=== PATIENT | female | born 1935 | race Caucasian/White ===

== ENCOUNTER → 2017-04-20 09:53 | Outpatient (CLI) | payer MEDICARE, OTHER, SELFPAY ==
[2017-04-20 13:19] LABS: Absolute Lymphocyte Count 2.35 X10^3/ul (0.83-4.51); Absolute Neutrophil Count 7.4 X10^3/uL (2.0-7.7); Basophil# 0.03 X10^3/uL; Basophil% 0.3 % (0-1); Eosinophil# 0.08 X10^3/uL; Eosinophils% 0.7 % (0-5); Hematocrit 41.5 % (37-47); Hemoglobin 13.2 g/dl (12.0-15.0); Lymphocyte # 2.35 X10^3/ul (4.0); Lymphocyte % 21.7 % (19-41); Mean Corp Hgb Conc 31.8 g/gl (32-36); Mean Corpuscular Hgb 28.1 pg (27.0-32.0); Mean Corpuscular Volume 88.5 fL (81-99); Mean Platelet Vol. 9.1 fl (6.2-12.0); Monocyte# 0.98 X10^3/uL; Neutrophil # 7.39 X10^3/uL (2.7-7.7); Neutrophil % 68.1 % (47-70); POSITIVE COUNT NO; POSITIVE DIFFERENTIAL NO; POSITIVE MORPHOLOGY NO; Platelet Count 285 K/mm3 (150-450); RBC Distribution Width SD 44.8 fl (35.1-43.9); Red Blood Count 4.69 M/mm3 (4.2-5.4); White Blood Count 10.9 K/mm3 (4.4-11.0)
[2017-04-20 13:49] LABS: ALB/GLOB Ratio 0.7 RATIO (0.9-2.4); AST(SGOT) 17 U/L (15-37); Alanine Aminotransfer ALT/SGPT 19 U/L (13-56); Albumin, Serum 3.3 g/dL (3.2-5.0); Alkaline Phosphatase 57 U/L (45-117); Anion Gap 10 (5-15); BUN 18 mg/dL (7-18); BUN/Creat Ratio 14.1 RATIO (10-20); Calcium,Total 9.8 mg/dL (8.5-10.1); Chloride 95 mmol/L (98-107); Creatinine, Serum 1.28 mg/dL (0.55-1.02); EST Glomerular Filtration Rate 42 mL/min (>60); Est Glom Filt Rate - Afr Amer 51 mL/min (>60); Globulin 4.7 g/dL (2.2-4.2); Glucose 98 mg/dL (74-106); Potassium 4.4 mmol/L (3.5-5.1); Sodium Level 132 mmol/L (136-145); Thyroid Stim Hormone (TSH) 7.06 uIU/mL (0.358-3.74)
[2017-04-21 11:25] LABS: Vitamin D,25 Hydroxy 45.2 ng/mL (19.95-100.01)
== END ==
PROVIDERS: Family Provider Family Medicine Geriatric Medicine; PCP Family Medicine Geriatric Medicine; Visit Provider Family Medicine Geriatric Medicine
DX: I10 Essential (primary) hypertension (principal); E55.9 Vitamin D deficiency, unspecified
CPT/HCPCS: 36415; 80053; 82306; 84443; 85025

== ENCOUNTER 2017-04-22 10:44 | Emergency (ER) | payer MEDICARE, OTHER, SELFPAY ==
[2017-04-22 10:46] VITALS: BP 130/74; PULSE 88; RESP 20; TEMP 36.2; O2SAT 98; BMI 27.7
[2017-04-22 11:11] LABS: Absolute Lymphocyte Count 2.25 X10^3/ul (0.83-4.51); Absolute Neutrophil Count 8.2 X10^3/uL (2.0-7.7); Basophil# 0.06 X10^3/uL; Basophil% 0.5 % (0-1); Eosinophil# 0.07 X10^3/uL; Eosinophils% 0.6 % (0-5); Hematocrit 35.5 % (37-47); Hemoglobin 11.9 g/dl (12.0-15.0); Lymphocyte # 2.25 X10^3/ul (4.0); Lymphocyte % 18.9 % (19-41); Mean Corp Hgb Conc 33.5 g/gl (32-36); Mean Corpuscular Hgb 29.1 pg (27.0-32.0); Mean Corpuscular Volume 86.8 fL (81-99); Mean Platelet Vol. 8.7 fl (6.2-12.0); Monocyte# 1.34 X10^3/uL; Monocyte% 11.3 % (0-10); Neutrophil # 8.16 X10^3/uL (2.7-7.7); Neutrophil % 68.5 % (47-70); POSITIVE COUNT NO; POSITIVE DIFFERENTIAL NO; POSITIVE MORPHOLOGY NO; Platelet Count 259 K/mm3 (150-450); RBC Distribution Width CV 13.8 % (11.6-14.6); RBC Distribution Width SD 42.9 fl (35.1-43.9); Red Blood Count 4.09 M/mm3 (4.2-5.4); White Blood Count 11.9 K/mm3 (4.4-11.0)
--- NOTE | 2017-04-22 11:23 | ED.DCSUM_ITS ---
- ER Visit Summary Date of Service: 04/22/17 Chief Complaint: [Swelling left hip] History of Present Illness: The patient is a 82 F [presents to the emergency department with] redness and warmth to hematoma on left hip. Patient apparently had a fall 4 nights ago while returning from the bathroom in the middle of the night. Patient injured her left hip and was seen by her primary care physician 2 days ago. Daughter was advised to come to the emergency department if there was redness or warmth noted to the area of the hematoma as sometimes these can get infected. Patient is on Xarelto. Patient has not had a fever. Patient denies much discomfort and has been ambulating without this comfort. Patient denies hitting her head during the fall or headache. Physical Examination: [HEENT-PERRLA, EOMI. Cranial nerves II through XII grossly intact. TMs clear. Mucous membranes moist. No adenopathy. Cardiovascular-regular rate and rhythm without murmur or ectopy Lungs-clear to auscultation, chest wall stable without crepitus or subcu emphysema Abdomen-normoactive bowel sounds, soft, nontender, no rebound or rigidity, no peritoneal signs. Extremities-intact ?4, normal range of motion, normal pulses. Left hip-patient has a large hematoma over the left lateral hip with induration and diffuse ecchymosis noted. Central portion of the hematoma has just a faint erythema and it is slightly warm to touch. There is no lymphangitic streaking noted or evidence of cellulitis on the periphery of the ecchymosis. Patient nervously intact distally. Test Results: [BC with differential obtained showed a slightly elevated white blood cell count of 11.9, hemoglobin 11.9, hematocrit 35, platelets 259.] Emergency Department Course and Treatment: [Patient was given 1 dose of Keflex in the emergency department] Treatment Plan: [She will be treated with Keflex and advised to follow-up with her primary care physician in 2-3 days for wound check. Patient advised to return if fever, increased redness or swelling, or condition should worsen in any way. His point patient is nontoxic-appearing.] Disposition: [Discharged home in stable condition] Impression: [Left hip hematoma with concern for early cellulitis.] This note was generated with [employer]gyl[employer]ation software. It may contain incorrect words, spelling, and punctuation that were not noted in review of the chart prior to signing ED Disposition - Plan for ED Patient: Chief Complaint: Fall Referrals: Will Nagy Chi, MD [Primary Care Provider] -
--- NOTE | 2017-04-22 11:23 | ED.DEP ---
ED Disposition - Plan for ED Patient: Chief Complaint: Fall Instructions: ED Prevention Fall, ED Hematoma, ED Infec Skin Cellulitis Prescriptions: Cephalexin [Keflex] 500 mg PO Q6 #40 cap Referrals: Will Nagy Chi, MD [Primary Care Provider] -
[2017-04-22] MEDS: Cephalexin 250 MG Capsule 500 MG PO (11:36)
[2017-04-22 11:40] VITALS: BP 135/84; PULSE 71; RESP 16; O2SAT 98
== END 2017-04-22 11:40 | disposition home or self-care (01) ==
PROVIDERS: Emergency Provider Emergency Medicine; Family Provider Family Medicine Geriatric Medicine; PCP Family Medicine Geriatric Medicine
DX: L03.116 Cellulitis of left lower limb (principal); S70.02XA Contusion of left hip, initial encounter; W19.XXXA Unspecified fall, initial encounter; Y93.9 Activity, unspecified; Y92.9 Unspecified place or not applicable; Y99.9 Unspecified external cause status; I48.91 Unspecified atrial fibrillation; E03.9 Hypothyroidism, unspecified; F03.90 Unspecified dementia, unspecified severity, without behavioral disturbance, psychotic disturbance, mood disturbance, and anxiety; F32.9 Major depressive disorder, single episode, unspecified; Z79.01 Long term (current) use of anticoagulants; Z79.899 Other long term (current) drug therapy
CPT/HCPCS: 36415; 85025; 99283

== ENCOUNTER → 2017-05-31 14:35 | Outpatient (CLI) | payer MEDICARE, OTHER, SELFPAY | PROVIDERS: Family Provider Family Medicine Geriatric Medicine; PCP Family Medicine Geriatric Medicine; Visit Provider Family Medicine Geriatric Medicine | DX: E03.9 Hypothyroidism, unspecified (principal) ==

== ENCOUNTER → 2017-07-21 08:59 | Outpatient (CLI) | payer MEDICARE, OTHER, SELFPAY ==
[2017-07-21 11:27] LABS: Basophil# 0.02 X10^3/uL; Basophil% 0.2 % (0-1); Eosinophil# 0.08 X10^3/uL; Hematocrit 45.2 % (37-47); Hemoglobin 14.5 g/dl (12.0-15.0); Lymphocyte % 29.3 % (19-41); Mean Corp Hgb Conc 32.1 g/gl (32-36); Mean Corpuscular Volume 87.4 fL (81-99); Monocyte# 0.68 X10^3/uL; Monocyte% 8.3 % (0-10); Neutrophil # 5.01 X10^3/uL (2.7-7.7); Neutrophil % 61.1 % (47-70); POSITIVE COUNT NO; POSITIVE DIFFERENTIAL NO; POSITIVE MORPHOLOGY NO; Platelet Count 250 K/mm3 (150-450); RBC Distribution Width CV 13.7 % (11.6-14.6); Red Blood Count 5.17 M/mm3 (4.2-5.4); White Blood Count 8.2 K/mm3 (4.4-11.0)
[2017-07-21 12:10] LABS: ALB/GLOB Ratio 0.8 RATIO (0.9-2.4); AST(SGOT) 16 U/L (15-37); Alanine Aminotransfer ALT/SGPT 12 U/L (13-56); Albumin, Serum 3.5 g/dL (3.2-5.0); Alkaline Phosphatase 54 U/L (45-117); Anion Gap 7 (5-15); BUN 14 mg/dL (7-18); BUN/Creat Ratio 12.5 RATIO (10-20); Calcium,Total 9.6 mg/dL (8.5-10.1); Chloride 97 mmol/L (98-107); Creatinine, Serum 1.12 mg/dL (0.55-1.02); EST Glomerular Filtration Rate 49 mL/min (>60); Est Glom Filt Rate - Afr Amer 60 mL/min (>60); Globulin 4.6 g/dL (2.2-4.2); Glucose 110 mg/dL (74-106); Potassium 4.4 mmol/L (3.5-5.1); Protein, Total 8.1 g/dL (6.4-8.2); Sodium Level 136 mmol/L (136-145); Thyroid Stim Hormone (TSH) 3.45 uIU/mL (0.358-3.74)
== END ==
PROVIDERS: Family Provider Family Medicine Geriatric Medicine; PCP Family Medicine Geriatric Medicine; Visit Provider Family Medicine Geriatric Medicine
DX: I10 Essential (primary) hypertension (principal); E55.9 Vitamin D deficiency, unspecified
CPT/HCPCS: 36415; 80053; 82306; 84443; 85025

== ENCOUNTER → 2017-10-25 11:00 | Outpatient (CLI) | payer MEDICARE, OTHER, SELFPAY ==
[2017-10-25 12:31] LABS: Absolute Lymphocyte Count 2.18 X10^3/ul (0.83-4.51); Absolute Neutrophil Count 5.5 X10^3/uL (2.0-7.7); Basophil# 0.04 X10^3/uL; Basophil% 0.5 % (0-1); Eosinophil# 0.11 X10^3/uL; Eosinophils% 1.3 % (0-5); Hematocrit 44.6 % (37-47); Hemoglobin 14.6 g/dl (12.0-15.0); Lymphocyte # 2.18 X10^3/ul (4.0); Lymphocyte % 25.8 % (19-41); Mean Corp Hgb Conc 32.7 g/gl (32-36); Mean Corpuscular Hgb 29.1 pg (27.0-32.0); Mean Corpuscular Volume 88.8 fL (81-99); Mean Platelet Vol. 9.3 fl (6.2-12.0); Monocyte# 0.65 X10^3/uL; Monocyte% 7.7 % (0-10); Neutrophil # 5.45 X10^3/uL (2.7-7.7); Neutrophil % 64.5 % (47-70); Platelet Count 278 K/mm3 (150-450); Red Blood Count 5.02 M/mm3 (4.2-5.4); White Blood Count 8.5 K/mm3 (4.4-11.0)
[2017-10-25 12:40] LABS: POSITIVE COUNT NO; POSITIVE DIFFERENTIAL NO; POSITIVE MORPHOLOGY NO
[2017-10-25 12:48] LABS: Vitamin D,25 Hydroxy 48.6 ng/mL (29.95-100.01)
[2017-10-25 12:49] LABS: ALB/GLOB Ratio 0.8 RATIO (0.9-2.4); AST(SGOT) 19 U/L (15-37); Alanine Aminotransfer ALT/SGPT 22 U/L (13-56); Albumin, Serum 3.5 g/dL (3.2-5.0); Alkaline Phosphatase 52 U/L (45-117); Anion Gap 9 (5-15); BUN 18 mg/dL (7-18); BUN/Creat Ratio 14.5 RATIO (10-20); Calcium,Total 9.2 mg/dL (8.5-10.1); Chloride 99 mmol/L (98-107); Creatinine, Serum 1.24 mg/dL (0.55-1.02); EST Glomerular Filtration Rate 44 mL/min (>60); Est Glom Filt Rate - Afr Amer 53 mL/min (>60); Globulin 4.6 g/dL (2.2-4.2); Glucose 127 mg/dL (74-106); Potassium 4.8 mmol/L (3.5-5.1); Protein, Total 8.1 g/dL (6.4-8.2); Sodium Level 138 mmol/L (136-145); Thyroid Stim Hormone (TSH) 3.79 uIU/mL (0.358-3.74)
== END ==
PROVIDERS: Family Provider Family Medicine Geriatric Medicine; PCP Family Medicine Geriatric Medicine; Visit Provider Family Medicine Geriatric Medicine
DX: I10 Essential (primary) hypertension (principal); E55.9 Vitamin D deficiency, unspecified
CPT/HCPCS: 36415; 80053; 82306; 84443; 85025

== ENCOUNTER 2017-11-12 22:12 | Inpatient (IN) | payer MEDICARE, OTHER, SELFPAY ==
[2017-11-12 22:12] VITALS: BP 133/91; PULSE 72; RESP 15; TEMP 36.9; O2SAT 92; BMI 27.8
[2017-11-12 23:05] VITALS: BP 150/104; PULSE 150; RESP 24; O2SAT 88
--- NOTE | 2017-11-12 23:17 | ED.VISSUMM ---
- ER Visit Summary Date of Service: 11/12/17 Chief Complaint: Shortness of breath History of Present Illness: The patient is a 82 F increasing shortness of breath over the past week. Patient is a poor historian, states has Alzheimer's dementia. States worse when she lays down, sleep sitting up. Mild leg swelling today. Unclear if history of congestive heart failure. History of atrial fibrillation on anticoagulants either Xarelto or Eliquis at this time. Daughter is getting the medications from home per nursing. Metoprolol from records. Patient states mild cough. No fever, chills, sweats. Nausea with no vomiting or diarrhea. States mild chest pressure due to dyspnea. Physical Examination: General: Alert and oriented ?3, no acute distress HEENT: Normocephalic, atraumatic. Moist mucosa membranes Neck: supple, nontender. Cardiovascular: Irregular tachycardic rate and rhythm, no murmurs Respiratory: Diminished breath sounds no distress Abdomen: Soft, nontender, nondistended Extremities: Nontender, minimal lower extremity edema, pulses intact ?4 Neuro: no focal neurological deficits. Test Results: EKG A. fib with RVR rate of 124. No ST or T-wave changes. Troponin negative. BNP 379, hemoglobin 14.7. White count 12.4. Potassium 4.9. Creatinine 0.96. Chest x-ray left lower lobe infiltrate. Emergency Department Course and Treatment: Patient was hypoxic on arrival, placed on oxygen, stable, no respiratory distress. If he is already on EKG. Given Lopressor ?3 with no changes in heart rate blood pressure stable. Started on Cardizem drip. Workup initiated chest x-ray does show pneumonia left lower lobe. White count 12.4. Lactic acid is 1. Blood culture sent. Start Rocephin and Zithromax for community acquired pneumonia. O2 stable on oxygen. Troponin negative. BNP 379. Her history to suggest CHF due to her complaints of orthopnea and swelling. No CHF history. Confirmed by daughter she is on Eliquis. A Cardizem drip she is stable vitals heart rate down to the 120s. Discuss with hospitalist, Dr. San for admission to PCU. Treatment Plan: [] Disposition: Admission Impression: 1. [facility] pneumonia 2. Hypoxemia 3. A. fib RVR. 4. CHF This note was generated with [employer] software. It may contain incorrect words, spelling, and punctuation that were not noted in review of the chart prior to signing ED Disposition - Plan for ED Patient: Disposition: Acute Care Hospital [facility] Chief Complaint: Shortness of Breath Diagnosis: Community acquired pneumonia, Hypoxemia, Atrial fibrillation with RVR, CHF (congestive heart failure) Referrals: Will Nagy Chi, MD [Primary Care Provider] -
[2017-11-12 23:20] VITALS: BP 128/108; PULSE 129; RESP 32; O2SAT 96
[2017-11-12] MEDS: Ondansetron 4 MG/2 ML Vial IV (23:23)
[2017-11-12] MEDS: Metoprolol Tartrate 5 MG/5 ML Vial IV ×3 (23:23→23:53)
[2017-11-12 23:39] LABS: Absolute Lymphocyte Count 1.72 X10^3/ul (0.83-4.51); Absolute Neutrophil Count 9.3 X10^3/uL (2.0-7.7); Basophil# 0.02 X10^3/uL; Basophil% 0.2 % (0-1); Eosinophil# 0.26 X10^3/uL; Eosinophils% 2.1 % (0-5); Hemoglobin 14.7 g/dl (12.0-15.0); Lymphocyte # 1.72 X10^3/ul (4.0); Lymphocyte % 13.9 % (19-41); Mean Corpuscular Hgb 28.7 pg (27.0-32.0); Mean Corpuscular Volume 89.7 fL (81-99); Mean Platelet Vol. 8.7 fl (6.2-12.0); Monocyte# 1.05 X10^3/uL; Monocyte% 8.5 % (0-10); Neutrophil # 9.32 X10^3/uL (2.7-7.7); Platelet Count 534 K/mm3 (150-450); RBC Distribution Width CV 14.4 % (11.6-14.6); RBC Distribution Width SD 46.7 fl (35.1-43.9); Red Blood Count 5.13 M/mm3 (4.2-5.4); White Blood Count 12.4 K/mm3 (4.4-11.0)
[2017-11-12 23:46] LABS: International Normalized Ratio 1.4; Prothrombin Time (Protime)PT. 17.2 SECONDS (11.7-14.9)
[2017-11-12 23:47] LABS: POSITIVE COUNT NO; POSITIVE DIFFERENTIAL NO; POSITIVE MORPHOLOGY NO; Partial Thromboplast Time 43.5 Seconds (24.1-36.2)
[2017-11-12 23:51] LABS: BUN 13 mg/dL (7-18); Creatinine, Serum 0.96 mg/dL (0.55-1.02); Glucose 116 mg/dL (74-106)
[2017-11-12 23:52] LABS: ALB/GLOB Ratio 0.6 RATIO (0.9-2.4); AST(SGOT) 32 U/L (15-37); Alanine Aminotransfer ALT/SGPT 35 U/L (13-56); Albumin, Serum 3.2 g/dL (3.2-5.0); Alkaline Phosphatase 64 U/L (45-117); Anion Gap 7 (5-15); BUN/Creat Ratio 13.5 RATIO (10-20); Calcium,Total 9.4 mg/dL (8.5-10.1); Chloride 95 mmol/L (98-107); EST Glomerular Filtration Rate 59 mL/min (>60); Est Glom Filt Rate - Afr Amer 71 mL/min (>60); Estimated Creatinine Clearance 39.01 ml/min; Potassium 4.9 mmol/L (3.5-5.1); Protein, Total 8.2 g/dL (6.4-8.2); Sodium Level 134 mmol/L (136-145)
[2017-11-13] VITALS (52 sets, daily range): BP systolic 49–178; BP diastolic 34–155; PULSE 62–155; RESP 13–40; TEMP 35.8–37.4; O2SAT 89–100; BMI 27.2
[2017-11-13 00:07] LABS: BNP,B-Type NATRIURETIC PEPTIDE 379.6 pg/mL (0-100)
[2017-11-13] MEDS: Ceftriaxone 1 GM/50 ML BAG IV (00:20)
--- NOTE | 2017-11-13 01:23 | PCM.HP.STD ---
Problem List (1) Paroxysmal atrial fibrillation with RVR Status: Acute (2) Pneumonia Status: Acute Qualifiers: Pneumonia type: due to unspecified organism Laterality: left Lung location: lower lobe of lung Qualified Code(s): J18.1 - Lobar pneumonia, unspecified organism (3) PAF (paroxysmal atrial fibrillation) Status: Chronic (4) ETOH abuse Status: Chronic (5) Chronic back pain Status: Chronic Qualifiers: Back pain location: back pain in unspecified location Back pain laterality: unspecified Qualified Code(s): M54.9 - Dorsalgia, unspecified; G89.29 - Other chronic pain (6) Dementia without behavioral disturbance Status: Chronic Qualifiers: Dementia type: unspecified type Qualified Code(s): F03.90 - Unspecified dementia without behavioral disturbance (7) Insomnia Status: Chronic Qualifiers: Insomnia type: unspecified Qualified Code(s): G47.00 - Insomnia, unspecified (8) Hypothyroidism Status: Chronic Qualifiers: Hypothyroidism type: unspecified Qualified Code(s): E03.9 - Hypothyroidism, unspecified (9) Hypertension Status: Chronic Qualifiers: Hypertension type: essential hypertension Qualified Code(s): I10 - Essential (primary) hypertension History of Present Illness Date of Admission: 11/13/17 Chief Complaint: Dyspnea, weakness. The patient is a 82 y/o F w/ PMHx: PAF on Eliquis, HTN, Hypothyroidism, Dementia Unclear Type without Behavioral Disturbance history, EtOH Abuse who presents to the [facility] ED on 1 week history of dyspnea, worse w/ activity with orthopnea requiring her to sleep upright in a chair instead of her bed and mildly productive cough. In the ED workup included T 98.4, heart rate 150--> heart rate 126, BP 127/104, respiratory rate 34, 95% on 2 L nasal cannula, CBC with WBC 12.4, hemoglobin 14.7, platelet 534 with left shift, coags with PT 17.2, INR 1.4, PTT 43.5, CMP with sodium 134, chloride 95, glucose 116, lactic acid 1.0, BNP 379.6, x-ray with opacity consistent with pneumonia in the left lung base, partial collapse and or pleural effusion possibly contributing, stable moderate elevation right diaphragm. In the ED patient administered Zofran, metoprolol IV, Rocephin, azithromycin, initiated additionally on Cardizem drip. Past Medical History Past Medical History (Chronic Problems): Chronic Problems PAF (paroxysmal atrial fibrillation) (Chronic) ETOH abuse (Chronic) Chronic back pain (Chronic) Dementia without behavioral disturbance (Chronic) Obesity (BMI 30.0-34.9) (Chronic) Insomnia (Chronic) Hypothyroidism (Chronic) Hypertension (Chronic) Allergies lisinopril Allergy (Verified 11/12/17 22:18) Unknown losartan [From Cozaar] Allergy (Verified 11/12/17 22:18) Unknown NSAIDS (Non-Steroidal Anti-Inflamma Allergy (Verified 11/12/17 22:18) Unknown Home Medications: Ambulatory Orders Medication Instructions Recorded Ergocalciferol [Vitamin D] 50,000 unit PO Q30D 01/16/17 Latanoprost 0.005% [Xalatan 1 drop EACH EYE QHS 01/16/17 Opthalmic] Timolol 0.5% [Timoptic] 1 drop EACH EYE BID 01/16/17 Trazodone HCl 100 mg PO QHS 01/16/17 Apixaban [Eliquis] 5 mg PO BID 11/12/17 Calcium Carbonate/Vitamin D3 1 each PO BID 11/12/17 [Calcium 600 + Vit D Caplet] Donepezil HCl [Aricept] 10 mg PO QHS 11/12/17 Levothyroxine Sodium 112 mcg PO DAILY 11/12/17 Metoprolol Tartrate [Lopressor 50 mg PO BID 11/12/17 (beta za)] Multivitamin [Multiple Vitamins] 1 each PO DAILY 11/12/17 Vit C/Vit E AC/Lut/Copper/Zinc 1 each PO BID 11/12/17 [Preservision Lutein Softgel] Surgical History: - - Total abdominal hysterectomy, tonsillectomy. Psychiatric History: Anxiety, Depression INTERNAL AUDITOR History: No pertinent INTERNAL AUDITOR history Lives: With Family Smoking Status: Never smoker Tobacco Use: Non-smoker Alcohol: Heavy - 2-3 hard liquor, vodka with water tumblers per night. Drugs: None - *Family History Maternal History Items: No pertinent history Paternal History Items: Hypertension Review of Systems Constitutional: Reports: Malaise, Weakness, Fatigue. Denies: Chills, Fever, Weight Change HEENT: Denies: Head Aches, Sinus Congestion, Sinus Drainage Cardiovascular: Reports: Orthopnea. Denies: Chest Pain, Edema, Palpitations Respiratory: Reports: Cough, Shortness of Breath, Shortness of breath at rest, Shortness of breath upon exertion. Denies: Sputum production, Wheezing Gastrointestinal: Denies: Abdominal Pain, Nausea, Vomiting Genitourinary: Denies: Dysuria Musculoskeletal: Reports: Back Pain. Denies: Joint Pain, Joint Tenderness Skin: Denies: Rash, Wounds Neurological: Reports: Confusion. Denies: Focal weakness, Numbness, Tingling Psychiatric: Reports: Anxiety, Depression. Denies: Homicidal Ideations, Suicidal Ideations Hematologic/ Lymphatic: Denies: Easy Bruising, Easy Bleeding VTE Information - Inpt Only VTE Present on Admission: No VTE Mechan Device Prophylaxis: SCD's VTE Pharm Prophylaxis ordered?: No Reason prophylaxis not ordered:: Treatment Not Indicated - On eliquis. Patient Problems: Active and Suspected Problems Paroxysmal atrial fibrillation with RVR (Acute) Pneumonia (Acute) Subjective: Seated upright in the ED bed, fatigued appearing, ill appearing, notes currently severely nauseated. Objective: Physical Examination: General: awake, alert, oriented to self, place, recent events, does have underlying dementia, remains cooperative, seated upright in the ED bed, fatigued, ill appearing. Skin: normal color, turgor, no icterus, cyanosis. HEENT: AT/NC, EOMI, PERRLA, dry MM, no carotid bruits or JVD noted. Lungs: Diminished BS BL, > BL bases, poor effort, hunched over, nauseated currently, no wheezing or rales noted. Heart: Irregular irregular; no gallop, rub audible. Abdomen: soft, NTTP, ND, normal BS, no HSM; however, difficult to assess given current nausea and preference to avoid laying down. Extremities: no cyanosis, clubbing, or edema. Neurological: patient awake, alert, oriented as noted; cognitive function appears decreased from baseline, baseline moderately impaired w/ dementia; pupils equally reactive to light and accomodation; cranial nerves II-XII grossly normal, moving all 4 extremities, no focal deficits, strength severely globally decreased secondary to acute presentation. Psychiatric: affect appears fatigued, ill appearing, no acute evidence of depressive or anxiety feelings. - Physical Exam Vital Signs Temp Pulse Resp BP Pulse Ox 98.4 F 126 H 34 H 127/104 H 95 11/12/17 22:12 11/13/17 01:19 11/13/17 01:19 11/13/17 01:19 11/13/17 01:19 Oxygen Flow Rate (L/min) 2 Oxygen Delivery Method Nasal Cannula Weight: 162 lb Body Mass Index (BMI) 27.8 Laboratory Tests Past 24 Hrs 11/12/17 11/12/17 11/12/17 23:00 23:00 23:00 WBC 12.4 H RBC 5.13 Hgb 14.7 Hct 46.0 MCV 89.7 MCH 28.7 MCHC 32.0 RDW 14.4 RDW Differential 46.7 H Plt Count 534 H MPV 8.7 Immature Gran % (Auto) 0.300 Neut % (Auto) 75.0 H Lymph % (Auto) 13.9 L [place] % (Auto) 8.5 Eos % (Auto) 2.1 Baso % (Auto) 0.2 Absolute Neuts (auto) 9.3 H Absolute Lymphs (auto) 1.72 Total Counted Not Reportable PT 17.2 H INR 1.4 APTT 43.5 H Sodium 134 L Potassium 4.9 Chloride 95 L Carbon Dioxide 32.0 Anion Gap 7 BUN 13 Creatinine 0.96 Estim Creat Clear Calc 39.01 Est GFR (MDRD) Af Amer 71 Est GFR (MDRD) Non-Af 59 L BUN/Creatinine Ratio 13.5 Glucose 116 H Lactic Acid Calcium 9.4 Total Bilirubin 0.40 AST 32 ALT 35 Alkaline Phosphatase 64 Troponin I < 0.015 B-Natriuretic Peptide Total Protein 8.2 Albumin 3.2 Globulin 5.0 H Albumin/Globulin Ratio 0.6 L 11/12/17 11/13/17 23:00 00:15 WBC RBC Hgb Hct MCV MCH MCHC RDW RDW Differential Plt Count MPV Immature Gran % (Auto) Neut % (Auto) Lymph % (Auto) [place] % (Auto) Eos % (Auto) Baso % (Auto) Absolute Neuts (auto) Absolute Lymphs (auto) Total Counted PT INR APTT Sodium Potassium Chloride Carbon Dioxide Anion Gap BUN Creatinine Estim Creat Clear Calc Est GFR (MDRD) Af Amer Est GFR (MDRD) Non-Af BUN/Creatinine Ratio Glucose Lactic Acid 1.0 Calcium Total Bilirubin AST ALT Alkaline Phosphatase Troponin I B-Natriuretic Peptide 379.6 H Total Protein Albumin Globulin Albumin/Globulin Ratio Assessment/Plan All Active Problems Paroxysmal atrial fibrillation with RVR (Acute) Pneumonia (Acute) The patient is a 82 y/o F w/ PMHx: PAF on Eliquis, HTN, Hypothyroidism, Dementia Unclear Type without Behavioral Disturbance history, EtOH Abuse who presents to the [facility] ED on 1 week history of dyspnea, worse w/ activity with orthopnea requiring her to sleep upright in a chair instead of her bed and mildly productive cough. (1) Paroxsymal atrial fibrillation w/ RVR: EKG in ED w/ atrial fibrillation w/ RVR. Patient administered lopressor x 3 in the ED without effect thus transitioned to cardizem drip. Will admit to PCU, maintain on telemetry, obtain cardiac enzyme serial set, obtain magnesium level, maintain on home eliquis, continue cardizem drip and if not effective consider Cardiology consultation, repeat EKG in AM. (2) ? Community Acquired Pneumonia: CXR in the ED w/ opacity consistent with pneumonia in the left lung base with possible associated partial collapse versus pleural effusion contributing to the density, stable moderate elevation of the right diaphragm. Will maintain on oxygen with wean as tolerated to room air/home oxygen supplementation, continue ATC duonebs, PRN albuterol, maintained on IV Rocephin and Azithromycin, HOB, IS parameters w/ pending sputum cultures and urine antigens. Bld cx x 2 obtained in the ED. (3) ? Underlying CHF, Unclear Type, Lower Suspicion, Although suspect Acute presentation secondary to #1: 01/2017 ECHO w/ no LV systolic function, EF 65%, mildly enlarged LA, mildly enlarged RA, mild MV insufficiency, mild to moderate TV insufficiency, mild focal AV calcification, trivial pulmonic valve insufficiency, RVSP 27 mmHg. Suspect presentation secondary to her atrial fibrillation with RVR. BNP only mildly elevated. CXR without marked congestion. Will maintain on telemetry, obtain serial cardiac enzymes, obtain mag level, obtain TSH level, repeat EKG in AM, repeat ECHO. Maintain on eliquis, metoprolol, ACEI/ARB allergy, will defer aggressive lasix administration and continue w/ treatment #1 and #2 and continue evaluation as again lower suspicion for CHF but felt secondary to her likely ongoing atrial fibrillation w/ RVR. (4) Hypertension: Continue home BB regimen w/ parameters, as noted on IV Cardizem w/ oral regimen adjustments over the next 24 hours as needed, adjust as needed. (5) Hypothyroidism: Continue home synthroid regimen, TSH pending. (6) Insomnia: Continue home trazodone q HS. (7) Dementia without behavioral disturbances w/ Anxiety/Depression: Notable anxiety in the ED. Daughter lives with her, continue home aricept regimen. (8) EtOH Abuse: Patient with routine consumption of 3 vodka drinks per day. Will maintain on CIWA protocol, MVI, thiamine and folic acid. Mag, phos pending. (9) DVT prophylaxis: SCDs, Eliquis. (10) CODE status: Patient evaluated prior and had recommended HCPOA/living will, patient notes not yet completed. Discussed CODE status at length including difference between FULL code, DNR-CCA and DNR-CC status. Following discussions about the differences in these status, confirmed continuation of Full Code status. Advanced Care Planning Face to Face Time: 17 minutes. Code Visit Inpatient E&M: 99615 Init Hosp L3 Procedures: 23390 Advncd Care Plan 30 Min
--- NOTE | 2017-11-13 01:38 | HP.PCM_ITS ---
Problem List (1) Paroxysmal atrial fibrillation with RVR Status: Acute (2) Pneumonia Status: Acute Qualifiers: Pneumonia type: due to unspecified organism Laterality: left Lung location: lower lobe of lung Qualified Code(s): J18.1 - Lobar pneumonia, unspecified organism (3) PAF (paroxysmal atrial fibrillation) Status: Chronic (4) ETOH abuse Status: Chronic (5) Chronic back pain Status: Chronic Qualifiers: Back pain location: back pain in unspecified location Back pain laterality : unspecified Qualified Code(s): M54.9 - Dorsalgia, unspecified; G89.29 - Other chronic pain (6) Dementia without behavioral disturbance Status: Chronic Qualifiers: Dementia type: unspecified type Qualified Code(s): F03.90 - Unspecified dementia without behavioral disturbance (7) Insomnia Status: Chronic Qualifiers: Insomnia type: unspecified Qualified Code(s): G47.00 - Insomnia, unspecified (8) Hypothyroidism Status: Chronic Qualifiers: Hypothyroidism type: unspecified Qualified Code(s): E03.9 - Hypothyroidism , unspecified (9) Hypertension Status: Chronic Qualifiers: Hypertension type: essential hypertension Qualified Code(s): I10 - Essential (primary) hypertension History of Present Illness Date of Admission: 11/13/17 Chief Complaint: Dyspnea, weakness. The patient is a 82 y/o F w/ PMHx: PAF on Eliquis, HTN, Hypothyroidism, Dementia Unclear Type without Behavioral Disturbance history, EtOH Abuse who presents to the [facility] ED on 1 week history of dyspnea, worse w/ activity with orthopnea requiring her to sleep upright in a chair instead of her bed and mildly productive cough. In the ED workup included T 98.4, heart rate 150--> heart rate 126, BP 127/104, respiratory rate 34, 95% on 2 L nasal cannula, CBC with WBC 12.4, hemoglobin 14.7, platelet 534 with left shift, coags with PT 17.2 , INR 1.4, PTT 43.5, CMP with sodium 134, chloride 95, glucose 116, lactic acid 1.0, BNP 379.6, x-ray with opacity consistent with pneumonia in the left lung base, partial collapse and or pleural effusion possibly contributing, stable moderate elevation right diaphragm. In the ED patient administered Zofran, metoprolol IV, Rocephin, azithromycin, initiated additionally on Cardizem drip. Past Medical History Past Medical History (Chronic Problems): Chronic Problems PAF (paroxysmal atrial fibrillation) (Chronic) ETOH abuse (Chronic) Chronic back pain (Chronic) Dementia without behavioral disturbance (Chronic) Obesity (BMI 30.0-34.9) (Chronic) Insomnia (Chronic) Hypothyroidism (Chronic) Hypertension (Chronic) Allergies lisinopril Allergy (Verified 11/12/17 22:18) Unknown losartan [From Cozaar] Allergy (Verified 11/12/17 22:18) Unknown NSAIDS (Non-Steroidal Anti-Inflamma Allergy (Verified 11/12/17 22:18) Unknown Home Medications: Ambulatory Orders Medication Instructions Recorded Ergocalciferol [Vitamin D] 50,000 unit PO Q30D 01/16/17 Latanoprost 0.005% [Xalatan 1 drop EACH EYE QHS 01/16/17 Opthalmic] Timolol 0.5% [Timoptic] 1 drop EACH EYE BID 01/16/17 Trazodone HCl 100 mg PO QHS 01/16/17 Apixaban [Eliquis] 5 mg PO BID 11/12/17 Calcium Carbonate/Vitamin D3 1 each PO BID 11/12/17 [Calcium 600 + Vit D Caplet] Donepezil HCl [Aricept] 10 mg PO QHS 11/12/17 Levothyroxine Sodium 112 mcg PO DAILY 11/12/17 Metoprolol Tartrate [Lopressor 50 mg PO BID 11/12/17 (beta za)] Multivitamin [Multiple Vitamins] 1 each PO DAILY 11/12/17 Vit C/Vit E AC/Lut/Copper/Zinc 1 each PO BID 11/12/17 [Preservision Lutein Softgel] Surgical History: - - Total abdominal hysterectomy, tonsillectomy. Psychiatric History: Anxiety, Depression [employer] History: No pertinent [employer] history Lives: With Family Smoking Status: Never smoker Tobacco Use: Non-smoker Alcohol: Heavy - 2-3 hard liquor, vodka with water tumblers per night. Drugs: None - *Family History Maternal History Items: No pertinent history Paternal History Items: Hypertension Review of Systems Constitutional: Reports: Malaise, Weakness, Fatigue. Denies: Chills, Fever, Weight Change HEENT: Denies: Head Aches, Sinus Congestion, Sinus Drainage Cardiovascular: Reports: Orthopnea. Denies: Chest Pain, Edema, Palpitations Respiratory: Reports: Cough, Shortness of Breath, Shortness of breath at rest, Shortness of breath upon exertion. Denies: Sputum production, Wheezing Gastrointestinal: Denies: Abdominal Pain, Nausea, Vomiting Genitourinary: Denies: Dysuria Musculoskeletal: Reports: Back Pain. Denies: Joint Pain, Joint Tenderness Skin: Denies: Rash, Wounds Neurological: Reports: Confusion. Denies: Focal weakness, Numbness, Tingling Psychiatric: Reports: Anxiety, Depression. Denies: Homicidal Ideations, Suicidal Ideations Hematologic/ Lymphatic: Denies: Easy Bruising, Easy Bleeding VTE Information - Inpt Only VTE Present on Admission: No VTE Mechan Device Prophylaxis: SCD's VTE Pharm Prophylaxis ordered?: No Reason prophylaxis not ordered:: Treatment Not Indicated - On eliquis. Patient Problems: Active and Suspected Problems Paroxysmal atrial fibrillation with RVR (Acute) Pneumonia (Acute) Subjective: Seated upright in the ED bed, fatigued appearing, ill appearing, notes currently severely nauseated. Objective: Physical Examination: General: awake, alert, oriented to self, place, recent events, does have underlying dementia, remains cooperative, seated upright in the ED bed, fatigued , ill appearing. Skin: normal color, turgor, no icterus, cyanosis. HEENT: AT/NC, EOMI, PERRLA, dry MM, no carotid bruits or JVD noted. Lungs: Diminished BS BL, > BL bases, poor effort, hunched over, nauseated currently, no wheezing or rales noted. Heart: Irregular irregular; no gallop, rub audible. Abdomen: soft, NTTP, ND, normal BS, no HSM; however, difficult to assess given current nausea and preference to avoid laying down. Extremities: no cyanosis, clubbing, or edema. Neurological: patient awake, alert, oriented as noted; cognitive function appears decreased from baseline, baseline moderately impaired w/ dementia; pupils equally reactive to light and accomodation; cranial nerves II-XII grossly normal, moving all 4 extremities, no focal deficits, strength severely globally decreased secondary to acute presentation. Psychiatric: affect appears fatigued, ill appearing, no acute evidence of depressive or anxiety feelings. - Physical Exam Vital Signs Temp Pulse Resp BP Pulse Ox 98.4 F 126 H 34 H 127/104 H 95 11/12/17 22:12 11/13/17 01:19 11/13/17 01:19 11/13/17 01:19 11/13/17 01:19 Oxygen Flow Rate (L/min) 2 Oxygen Delivery Method Nasal Cannula Weight: 162 lb Body Mass Index (BMI) 27.8 Laboratory Tests Past 24 Hrs 11/12/17 11/12/17 11/12/17 23:00 23:00 23:00 WBC 12.4 H RBC 5.13 Hgb 14.7 Hct 46.0 MCV 89.7 MCH 28.7 MCHC 32.0 RDW 14.4 RDW Differential 46.7 H Plt Count 534 H MPV 8.7 Immature Gran % (Auto) 0.300 Neut % (Auto) 75.0 H Lymph % (Auto) 13.9 L Simpson % (Auto) 8.5 Eos % (Auto) 2.1 Baso % (Auto) 0.2 Absolute Neuts (auto) 9.3 H Absolute Lymphs (auto) 1.72 Total Counted Not Reportable PT 17.2 H INR 1.4 APTT 43.5 H Sodium 134 L Potassium 4.9 Chloride 95 L Carbon Dioxide 32.0 Anion Gap 7 BUN 13 Creatinine 0.96 Estim Creat Clear Calc 39.01 Est GFR (MDRD) Af Amer 71 Est GFR (MDRD) Non-Af 59 L BUN/Creatinine Ratio 13.5 Glucose 116 H Lactic Acid Calcium 9.4 Total Bilirubin 0.40 AST 32 ALT 35 Alkaline Phosphatase 64 Troponin I < 0.015 B-Natriuretic Peptide Total Protein 8.2 Albumin 3.2 Globulin 5.0 H Albumin/Globulin Ratio 0.6 L 11/12/17 11/13/17 23:00 00:15 WBC RBC Hgb Hct MCV MCH MCHC RDW RDW Differential Plt Count MPV Immature Gran % (Auto) Neut % (Auto) Lymph % (Auto) Simpson % (Auto) Eos % (Auto) Baso % (Auto) Absolute Neuts (auto) Absolute Lymphs (auto) Total Counted PT INR APTT Sodium Potassium Chloride Carbon Dioxide Anion Gap BUN Creatinine Estim Creat Clear Calc Est GFR (MDRD) Af Amer Est GFR (MDRD) Non-Af BUN/Creatinine Ratio Glucose Lactic Acid 1.0 Calcium Total Bilirubin AST ALT Alkaline Phosphatase Troponin I B-Natriuretic Peptide 379.6 H Total Protein Albumin Globulin Albumin/Globulin Ratio Assessment/Plan All Active Problems Paroxysmal atrial fibrillation with RVR (Acute) Pneumonia (Acute) The patient is a 82 y/o F w/ PMHx: PAF on Eliquis, HTN, Hypothyroidism, Dementia Unclear Type without Behavioral Disturbance history, EtOH Abuse who presents to the [facility] ED on 1 week history of dyspnea, worse w/ activity with orthopnea requiring her to sleep upright in a chair instead of her bed and mildly productive cough. (1) Paroxsymal atrial fibrillation w/ RVR: EKG in ED w/ atrial fibrillation w/ RVR. Patient administered lopressor x 3 in the ED without effect thus transitioned to cardizem drip. Will admit to PCU, maintain on telemetry, obtain cardiac enzyme serial set, obtain magnesium level, maintain on home eliquis, continue cardizem drip and if not effective consider Cardiology consultation, repeat EKG in AM. (2) ? Community Acquired Pneumonia: CXR in the ED w/ opacity consistent with pneumonia in the left lung base with possible associated partial collapse versus pleural effusion contributing to the density, stable moderate elevation of the right diaphragm. Will maintain on oxygen with wean as tolerated to room air/home oxygen supplementation, continue ATC duonebs, PRN albuterol, maintained on IV Rocephin and Azithromycin, HOB, IS parameters w/ pending sputum cultures and urine antigens. Bld cx x 2 obtained in the ED. (3) ? Underlying CHF, Unclear Type, Lower Suspicion, Although suspect Acute presentation secondary to #1: 01/2017 ECHO w/ no LV systolic function, EF 65%, mildly enlarged LA, mildly enlarged RA, mild MV insufficiency, mild to moderate TV insufficiency, mild focal AV calcification, trivial pulmonic valve insufficiency, RVSP 27 mmHg. Suspect presentation secondary to her atrial fibrillation with RVR. BNP only mildly elevated. CXR without marked congestion. Will maintain on telemetry, obtain serial cardiac enzymes, obtain mag level, obtain TSH level, repeat EKG in AM, repeat ECHO. Maintain on eliquis, metoprolol , ACEI/ARB allergy, will defer aggressive lasix administration and continue w/ treatment #1 and #2 and continue evaluation as again lower suspicion for CHF but felt secondary to her likely ongoing atrial fibrillation w/ RVR. (4) Hypertension: Continue home BB regimen w/ parameters, as noted on IV Cardizem w/ oral regimen adjustments over the next 24 hours as needed, adjust as needed. (5) Hypothyroidism: Continue home synthroid regimen, TSH pending. (6) Insomnia: Continue home trazodone q HS. (7) Dementia without behavioral disturbances w/ Anxiety/Depression: Notable anxiety in the ED. Daughter lives with her, continue home aricept regimen. (8) EtOH Abuse: Patient with routine consumption of 3 vodka drinks per day. Will maintain on CIWA protocol, MVI, thiamine and folic acid. Mag, phos pending. (9) DVT prophylaxis: SCDs, Eliquis. (10) CODE status: Patient evaluated prior and had recommended HCPOA/living will , patient notes not yet completed. Discussed CODE status at length including difference between FULL code, DNR-CCA and DNR-CC status. Following discussions about the differences in these status, confirmed continuation of Full Code status. Advanced Care Planning Face to Face Time: 17 minutes. Code Visit Inpatient E&M: 09154 Init Hosp L3 Procedures: 18389 Advncd Care Plan 30 Min
[2017-11-13] MEDS: Ondansetron 4 MG/2 ML Vial IV (01:52)
--- NOTE | 2017-11-13 01:54 | ED.RN ---
PT BECAME DIAPHORETIC AND BP DROPPED TO 89/48. RECHECK AND BP 67/49. CARDIZEM STOPPED AND MD SYKES NOTIFIED. HR 94 AFIB
--- NOTE | 2017-11-13 02:55 | NURSING ---
Pt arrives to ICU from ED without any personal belongings. Pt is ashen and diaphoretic, eyes are glossy, fingers and toes are cyanotic, and B/L feet to ankles are mottled. Pt denies SOB but is tachypneic and restless. Pt also denies pain at this time. Assessment complete, pt provided orientation to ICU.
[2017-11-13] MEDS: LORazepam 2 MG/ML Syringe IV (03:20)
--- NOTE | 2017-11-13 03:22 | ED.RN ---
0315:Pt's daughter phoned to inform her that pt had increasing confusion as the night progressed and then had an episode of low blood pressure and not feeling well which warranted an admission to the ICU. Danielle verbalized understanding and stated she planned to visit in the am.
[2017-11-13 04:20] LABS: Absolute Neutrophil Count 15.5 X10^3/uL (2.0-7.7); Basophil# 0.04 X10^3/uL; Basophil% 0.2 % (0-1); Eosinophils% 1.1 % (0-5); Hematocrit 43.2 % (37-47); Hemoglobin 13.8 g/dl (12.0-15.0); Lymphocyte % 11.7 % (19-41); Mean Corp Hgb Conc 31.9 g/gl (32-36); Mean Corpuscular Hgb 29.4 pg (27.0-32.0); Mean Corpuscular Volume 91.9 fL (81-99); Mean Platelet Vol. 8.9 fl (6.2-12.0); Monocyte# 0.84 X10^3/uL; Monocyte% 4.5 % (0-10); Neutrophil # 15.45 X10^3/uL (2.7-7.7); Neutrophil % 82.2 % (47-70); Platelet Count 503 K/mm3 (150-450); RBC Distribution Width CV 14.4 % (11.6-14.6); RBC Distribution Width SD 47.2 fl (35.1-43.9); White Blood Count 18.8 K/mm3 (4.4-11.0)
[2017-11-13 04:22] LABS: POSITIVE COUNT NO; POSITIVE DIFFERENTIAL NO; POSITIVE MORPHOLOGY NO
[2017-11-13 04:31] LABS: Base Excess -2 mmol/L (-2 to +2); Bicarbonate 26.9 mmol/L (22-26); Blood Gas Specimen Type ART; O2 Delivery Device Nasal Can; PO2 73 mmHG (75-100); SITE R Radial; SO2 88 % (95-99); Time Given 412; Total Carbon Dioxide 29 mmol/L; pCO2 79.7 mmHg (35-45); pH 7.14 (7.35-7.45)
[2017-11-13 04:43] LABS: Anion Gap 8 (5-15); BUN 14 mg/dL (7-18); BUN/Creat Ratio 12.1 RATIO (10-20); Calcium,Total 8.8 mg/dL (8.5-10.1); Chloride 97 mmol/L (98-107); Creatinine, Serum 1.16 mg/dL (0.55-1.02); EST Glomerular Filtration Rate 47 mL/min (>60); Est Glom Filt Rate - Afr Amer 57 mL/min (>60); Estimated Creatinine Clearance 32.29 ml/min; Glucose 164 mg/dL (74-106); Potassium 5.7 mmol/L (3.5-5.1); Sodium Level 135 mmol/L (136-145)
[2017-11-13 04:44] LABS: Amphetamine Urine VISTA NEGATIVE (<1000 ng/mL); Barbiturate Urine VISTA NEGATIVE (< 200 ng/mL); Benzodiazepine Urine VISTA NEGATIVE (< 200 ng/mL); Cocaine Urine VISTA NEGATIVE (< 300 ng/mL); Ecstacy Urine VISTA POSITIVE (< 500 ng/mL); Methadone Urine VISTA NEGATIVE (< 300 ng/mL); PCP Urine VISTA NEGATIVE (< 25 ng/mL); THC Urine VISTA NEGATIVE (< 50 ng/mL); Vista UDS pH Range 6
[2017-11-13] MEDS: Midazolam 2 MG/2 ML Syringe IV (04:45)
[2017-11-13] MEDS: Etomidate 20 MG/10 ML Vial IV (04:45)
--- NOTE | 2017-11-13 04:48 | NURSING ---
0445: Dr. San arrived to room to assess patient and made decision to intubate patient. respiratory therapist Matthias Cabrera and Bakari Lam present 0449: 20mg etomidate and 2mg versed given by Swetha Amezcua RN 0452: Dr. San placed #7 ETT, 23cm@lip with glidescope and color change present on CO2 detector, breath sounds present bilateral. ETT secured with tube adkins. patient tolerated procedure well
[2017-11-13 04:58] LABS: Alcohol, Blood (Medical)-Serum < 3.0 mg/dL
[2017-11-13 05:00] LABS: Magnesium 2.4 mg/dL (1.6-2.6); Phosphorus 4.9 mg/dL (2.5-4.9)
[2017-11-13] MEDS: 0.9% Normal Saline 1,000 ML 999 ML IV ×2 (05:05→06:17)
[2017-11-13] MEDS: 0.9% Normal Saline 1,000 ML 100 ML IV (06:34)
[2017-11-13] MEDS: Propofol 10MG/Ml 1,000 MG/100 ML Bottle 2.204 MG CONT INF ×2 (06:37→16:58)
[2017-11-13] MEDS: Ipratropium/Albuterol Sulfate 3 ML AMPUL.NEB INHALATION ×3 (07:02→18:48)
[2017-11-13] MEDS: 0.9% NaCl Peripheral Flush Adult/Peds IV (07:03)
[2017-11-13 07:10] LABS: Allen Test POS; Base Excess -3 mmol/L (-2 to +2); Bicarbonate 22.5 mmol/L (22-26); Blood Gas Specimen Type ART; FI02 50; Mode A-C; O2 Delivery Device Vent; PEEP 5; PO2 123 mmHG (75-100); RR 14; SITE L Radial; SO2 98 % (95-99); Time Given 655; Total Carbon Dioxide 24 mmol/L; Vt 450; pCO2 42.9 mmHg (35-45); pH 7.33 (7.35-7.45)
--- NOTE | 2017-11-13 07:16 | PCM.CON.CC ---
Reason for Consult Date of Consultation: 11/13/17 Reason for Consultation: Acute respiratory failure History of Present Illness: The patient is an 82-year-old female, with a history as outlined below, who presented to the emergency department on November 12 with generalized weakness and shortness of breath. Patient has a history that includes paroxysmal atrial fibrillation, for which she is on Eliquis, along with baseline dementia and a long-standing history of alcohol abuse. No history could be obtained from the patient regarding her hospitalization, and she is currently intubated and sedated. On presentation to the emergency department, the patient was noted to be afebrile hemodynamically stable initially. She was maintaining appropriate oxygen saturations on room air. Laboratory evaluation revealed a mildly elevated white blood cell count along with evidence of thrombocytosis. Serum lactate was within normal limits. AST and ALT were normal. Troponin was negative. BNP was elevated to 380. Toxicology screen was positive for methamphetamine. Alcohol level was negative. Plain film chest x-ray revealed evidence of a left lower lobe infiltrate. EKG revealed atrial fibrillation with a rapid ventricular rate in the 120s. The patient was initiated on a Cardizem drip. However, she experienced a vasovagal episode without syncope with a heart rate that dropped into the 80s and systolic blood pressures in the 70s. She received supplemental IV fluid hydration and was started on antibiotics. Cardizem drip was discontinued and the patient was transferred to the medical intensive care unit for ongoing management. During the process developer hours of November 13, the patient was noted to be increasingly lethargic and less responsive by the hospitalist. An arterial blood gas was obtained which revealed a pH of 7.14 with a PCO2 of 80 and PO2 of 73. Due to the aforementioned, the patient was emergently intubated with a #7 endotracheal tube. Past Medical History Past Medical History (Chronic Problems): Chronic Problems PAF (paroxysmal atrial fibrillation) (Chronic) ETOH abuse (Chronic) Chronic back pain (Chronic) Dementia without behavioral disturbance (Chronic) Obesity (BMI 30.0-34.9) (Chronic) Insomnia (Chronic) Hypothyroidism (Chronic) Hypertension (Chronic) Allergies lisinopril Allergy (Verified 11/12/17 22:18) Unknown losartan [From Cozaar] Allergy (Verified 11/12/17 22:18) Unknown NSAIDS (Non-Steroidal Anti-Inflamma Allergy (Verified 11/12/17 22:18) Unknown Home Medications: Ambulatory Orders Medication Instructions Recorded Ergocalciferol [Vitamin D] 50,000 unit PO Q30D 01/16/17 Latanoprost 0.005% [Xalatan 1 drop EACH EYE QHS 01/16/17 Opthalmic] Timolol 0.5% [Timoptic] 1 drop EACH EYE BID 01/16/17 Trazodone HCl 100 mg PO QHS 01/16/17 Apixaban [Eliquis] 5 mg PO BID 11/12/17 Calcium Carbonate/Vitamin D3 1 each PO BID 11/12/17 [Calcium 600 + Vit D Caplet] Donepezil HCl [Aricept] 10 mg PO QHS 11/12/17 Levothyroxine Sodium 112 mcg PO DAILY 11/12/17 Metoprolol Tartrate [Lopressor 50 mg PO BID 11/12/17 (beta za)] Multivitamin [Multiple Vitamins] 1 each PO DAILY 11/12/17 Vit C/Vit E AC/Lut/Copper/Zinc 1 each PO BID 11/12/17 [Preservision Lutein Softgel] Surgical History: - - Total abdominal hysterectomy, tonsillectomy. Psychiatric History: Anxiety, Depression [facility] History: No pertinent [facility] history Lives: With Family Smoking Status: Never smoker Tobacco Use: Non-smoker Alcohol: Heavy - 2-3 hard liquor, vodka with water tumblers per night. Drugs: None - *Family History Maternal History Items: No pertinent history Paternal History Items: Hypertension Review of Systems Unable to obtain accurate/complete ROS d/t: Due to current intubation and mechanical ventilation status. Patient Problems: Active and Suspected Problems Paroxysmal atrial fibrillation with RVR (Acute) Pneumonia (Acute) Community acquired pneumonia (Acute) Hypoxemia (Acute) Atrial fibrillation with RVR (Acute) CHF (congestive heart failure) (Acute) Objective: The patient's most recent lab work, culture data and imaging studies have all been personally reviewed. Strep and urine Legionella antigens were both negative. C. difficile was negative. Blood cultures are pending. Respiratory viral panel is pending. Surface echocardiogram from January 2017 revealed normal LV size and function with an ejection fraction of 65%. Right ventricular systolic pressure was estimated to be 27 mmHg. - Physical Exam General: - - Intubated, sedated and mechanically ventilated. No ventilator dyssynchrony noted. HEENT: Atraumatic, PERRLA, Normocephalic Oral: Moist Mucosa, - - Endotracheal and OG tubes in place Neck: Supple, No Nodes, Trachea Midline Lungs: No rhonchi, No wheeze, No rales, Diminished Cardiovascular: Normal S1, Normal S2, No murmurs, Irregular Rate Abdomen: Bowel Sounds Present, Soft, Non Tender Extremities: No clubbing, No cyanosis, - - Trace pedal edema Skin: No breakdown Musculoskeletal: No Tenderness to Palpation of Joints or Extremities Lymphatic: No Cervical, Supraclavicular, or Inguinal Adenopathy Neurological: - - Currently moving all extremities spontaneously. Sedated and nonresponsive to verbal stimuli. Vital Signs Temp Pulse Resp BP Pulse Ox 96.4 F L 84 22 H 118/57 L 96 11/13/17 03:08 11/13/17 06:30 11/13/17 06:30 11/13/17 06:30 11/13/17 06:30 Oxygen Flow Rate (L/min) 4 Oxygen Delivery Method Mechanical Ventilator Weight: 168 lb 10.458 oz Body Mass Index (BMI) 27.2 Intake and Output for Last 24 Hours 11/11/17 11/12/17 11/13/17 23:59 23:59 23:59 Intake Total 1926 / 1926 Output Total 100 / 100 Balance 1826 / 1826 Microbiology Past 72 Hours 11/13/17 04:00 C. difficile DNA Amplification - Final Stool 11/13/17 04:00 Legionella Antigen - Final Urine Catheter - Brennan 11/13/17 04:00 Streptococcus pneumoniae Antigen (M - Final Urine Catheter - Brennan Laboratory Tests Past 24 Hrs 11/13/17 11/13/17 11/13/17 04:00 04:00 04:00 WBC 18.8 H RBC 4.70 Hgb 13.8 Hct 43.2 MCV 91.9 MCH 29.4 MCHC 31.9 L RDW 14.4 RDW Differential 47.2 H Plt Count 503 H MPV 8.9 Immature Gran % (Auto) 0.300 Neut % (Auto) 82.2 H Lymph % (Auto) 11.7 L [place] % (Auto) 4.5 Eos % (Auto) 1.1 Baso % (Auto) 0.2 Absolute Neuts (auto) 15.5 H Absolute Lymphs (auto) 2.20 Total Counted Not Reportable Specimen Type Sample Site pH Bicarbonate Actual POC Total CO2 Base Excess O2 Saturation O2 % ABG pCO2 ABG pO2 Denny Test Respiration Rate O2 Delivery Device Liter Flow Minute Volume Vent Mode Tidal Volume POC PEEP Blood Gas Notified Whom Blood Gas Notified Time Sodium 135 L Potassium 5.7 H Chloride 97 L Carbon Dioxide 30.0 Anion Gap 8 BUN 14 Creatinine 1.16 H Estim Creat Clear Calc 32.29 Est GFR (MDRD) Af Amer 57 L Est GFR (MDRD) Non-Af 47 L BUN/Creatinine Ratio 12.1 Glucose 164 H Calcium 8.8 Phosphorus 4.9 Magnesium 2.4 Troponin I Urine Opiates Screen Urine Methadone Screen Ur Barbiturates Screen Ur Phencyclidine Scrn Ur Amphetamines Screen U Methamphetamin-MDMA U Benzodiazepines Scrn Urine Cocaine Screen U Cannabinoids Screen Ur Drug Screen Comment Ethyl Alcohol 11/13/17 11/13/17 11/13/17 04:00 04:00 04:00 WBC RBC Hgb Hct MCV MCH MCHC RDW RDW Differential Plt Count MPV Immature Gran % (Auto) Neut % (Auto) Lymph % (Auto) [place] % (Auto) Eos % (Auto) Baso % (Auto) Absolute Neuts (auto) Absolute Lymphs (auto) Total Counted Specimen Type Sample Site pH Bicarbonate Actual POC Total CO2 Base Excess O2 Saturation O2 % ABG pCO2 ABG pO2 Denny Test Respiration Rate O2 Delivery Device Liter Flow Minute Volume Vent Mode Tidal Volume POC PEEP Blood Gas Notified Whom Blood Gas Notified Time Sodium Potassium Chloride Carbon Dioxide Anion Gap BUN Creatinine Estim Creat Clear Calc Est GFR (MDRD) Af Amer Est GFR (MDRD) Non-Af BUN/Creatinine Ratio Glucose Calcium Phosphorus Magnesium Troponin I < 0.015 Urine Opiates Screen NEGATIVE Urine Methadone Screen NEGATIVE Ur Barbiturates Screen NEGATIVE Ur Phencyclidine Scrn NEGATIVE Ur Amphetamines Screen NEGATIVE U Methamphetamin-MDMA POSITIVE H U Benzodiazepines Scrn NEGATIVE Urine Cocaine Screen NEGATIVE U Cannabinoids Screen NEGATIVE Ur Drug Screen Comment Ethyl Alcohol < 3.0 11/13/17 11/13/17 04:18 07:08 WBC RBC Hgb Hct MCV MCH MCHC RDW RDW Differential Plt Count MPV Immature Gran % (Auto) Neut % (Auto) Lymph % (Auto) [place] % (Auto) Eos % (Auto) Baso % (Auto) Absolute Neuts (auto) Absolute Lymphs (auto) Total Counted Specimen Type ART ART Sample Site R Radial L Radial pH 7.14 L* 7.33 L Bicarbonate Actual 26.9 H 22.5 POC Total CO2 29 24 Base Excess -2 -3 L O2 Saturation 88 L 98 O2 % 50 ABG pCO2 79.7 H* 42.9 ABG pO2 73 L 123 H Denny Test POS Respiration Rate 14 O2 Delivery Device Nasal Can Vent Liter Flow 4.0 Minute Volume 6.00 Vent Mode A-C Tidal Volume 450 POC PEEP 5 Blood Gas Notified Whom HOSP ICU MD Blood Gas Notified Time 412 655 Sodium Potassium Chloride Carbon Dioxide Anion Gap BUN Creatinine Estim Creat Clear Calc Est GFR (MDRD) Af Amer Est GFR (MDRD) Non-Af BUN/Creatinine Ratio Glucose Calcium Phosphorus Magnesium Troponin I Urine Opiates Screen Urine Methadone Screen Ur Barbiturates Screen Ur Phencyclidine Scrn Ur Amphetamines Screen U Methamphetamin-MDMA U Benzodiazepines Scrn Urine Cocaine Screen U Cannabinoids Screen Ur Drug Screen Comment Ethyl Alcohol Clinical Impression(s) from Imaging Studies Chest X-Ray 11/12/17 23:25 IMPRESSION: 1. Opacity consistent with pneumonia now seen in the left lung base. An element of partial collapse and/or pleural effusion may also contribute to this density. 2. Stable moderate elevation of the right diaphragm. 3. Prior cement augmentation of the T12 vertebra. Electronically Signed: Ko Jules MD at 23:39 EDT , Service support , Chest X-Ray 11/13/17 05:25 IMPRESSION: Persistent left lower lobe atelectasis, pneumonia and/or effusion. Elevated right hemidiaphragm unchanged. Support tubes in their expected locations as above. Endotracheal tube tip not optimally visualized but probably normal. Electronically Signed: Arthur Hernandez MD at 6:08 EDT , Service support , Assessment/Plan Active and Suspected Problems Paroxysmal atrial fibrillation with RVR (Acute) Pneumonia (Acute) Community acquired pneumonia (Acute) Hypoxemia (Acute) Atrial fibrillation with RVR (Acute) CHF (congestive heart failure) (Acute) RECOMMENDATIONS: 1. Obtain arterial blood gas 2. Obtain and send sputum for culture. 3. Transition from current antibiotics to Zosyn. Check MRSA screen. 4. Continue propofol and fentanyl for sedation. Goal to maintain a RASS of -1 to 1. 5. Continue amiodarone 6. Echocardiogram is pending. Awaiting cardiology evaluation. 7. Start tube feeds. IMPRESSIONS: 1. Acute hypoxemic and hypercarbic respiratory failure Unclear etiology for the patient's acute respiratory decompensation. It is possible that this may have been cardiac mediated. Her antibiotics will be broadened in coverage for presumptive community-acquired pneumonia. She will be continued on full mechanical ventilatory support. We will plan to obtain a sputum culture, along with a repeat arterial blood gas. Wean supplemental oxygen as tolerated. Plan for daily paired spontaneous awakening and breathing trials. Unknown if the patient has an underlying smoking history or not. Continue propofol and fentanyl for sedation with a goal to maintain a RASS of -1 to 1. 2. Paroxysmal atrial fibrillation with rapid ventricular rate Continue amiodarone as ordered. Continue baseline Eliquis therapy. Cardiology has been consulted to assist with management. 3. Sepsis secondary to presumptive community-acquired pneumonia Continue current supportive measures and antibiotics as ordered. Await infectious workup. 4. Acute kidney injury Likely secondary to hemodynamic instability that resulted as a consequence of Cardizem utilization. We will provide volume expansion with supplemental IV fluids. Monitor urine output accordingly. Anticipate improvement with stabilization of hemodynamics. No indication for renal replacement therapy at this time. 5. Questionable heart failure with preserved ejection fraction The patient's last echocardiogram revealed preserved ejection fraction. However, her BNP was elevated, which may be secondary to atrial fibrillation with rapid ventricular rate. A repeat echocardiogram is currently pending. Cardiology consultation is pending. 6. Hypertension/hypothyroidism/dementia/history of alcohol abuse Complicates care, management, recovery and prognosis. Continue baseline Synthroid dose. Per the patient's family, she was previously a heavy drinker but has been abstinent from alcohol since January 2017. Okay from my perspective to initiate tube feeds today. TIME: 40 minutes of critical care time, independent of procedures, was spent addressing the patient's acute hypoxemic and hypercarbic respiratory failure, paroxysmal atrial fibrillation with rapid ventricular rate, sepsis secondary to community-acquired pneumonia, acute kidney injury, review of all data and collaboration with the care team. ([id number]) Code Visit [id number]: [id number] Critical care first hour
[2017-11-13] MEDS: Lactated Ringers 1,000 ML 125 ML IV ×2 (08:13→16:57)
[2017-11-13 08:50] LABS: CPK Total, Creatine Kinase 33 U/L (26-192); Triglycerides 64 mg/dL
[2017-11-13] MEDS: Piperacil/Tazobactam 3.375 GM/50 ML ML IV ×3 (08:59→21:06)
--- NOTE | 2017-11-13 09:42 | PCM.PN.HOSP ---
Patient Problems: Active and Suspected Problems Paroxysmal atrial fibrillation with RVR (Acute) Pneumonia (Acute) Community acquired pneumonia (Acute) Hypoxemia (Acute) Atrial fibrillation with RVR (Acute) CHF (congestive heart failure) (Acute) Subjective: The patient was admitted knifer up today. Currently patient is intubated. No fever. Leukocytosis 18,000 with left shift. U tox positive for methamphetamine. Vitals/I&O's: Vital Signs Temp Pulse Resp BP Pulse Ox 96.4 F L 68 14 118/57 L 100 11/13/17 03:08 11/13/17 06:55 11/13/17 06:55 11/13/17 06:30 11/13/17 06:55 Oxygen Flow Rate (L/min) 60 Oxygen Delivery Method Mechanical Ventilator Weight: 168 lb 10.458 oz Body Mass Index (BMI) 27.2 Intake and Output for Last 24 Hours 11/11/17 11/12/17 11/13/17 23:59 23:59 23:59 Intake Total 1926 / 1926 Output Total 100 / 100 Balance 1826 / 1826 General: - - Sedated on IV fentanyl drip and propofol drip Oral: - - EKG of Lungs: - - On ventilator Cardiovascular: Normal S1, Normal S2, No murmurs, Irregular Rate Abdomen: Bowel Sounds Present, Soft, Non Tender, Hypoactive Bowel Sounds Extremities: Edema Skin: No rashes, No breakdown Musculoskeletal: Arthritic Changes, Muscle Wasting Microbiology Past 72 Hours 11/13/17 04:00 Stool C. difficile DNA Amplification - Final 11/13/17 04:00 Urine Catheter - Brennan Legionella Antigen - Final 11/13/17 04:00 Urine Catheter - Brennan Streptococcus pneumoniae Antigen (M - Final Laboratory Results 11/13/17 04:00: Phosphorus 4.9, Magnesium 2.4 11/13/17 04:00: Sodium 135 L, Potassium 5.7 H, Chloride 97 L, Carbon Dioxide 30.0, Anion Gap 8, BUN 14, Creatinine 1.16 H, Estim Creat Clear Calc 32.29, Est GFR (MDRD) Af Amer 57 L, Est GFR (MDRD) Non-Af 47 L, BUN/Creatinine Ratio 12.1, Glucose 164 H, Calcium 8.8 11/13/17 04:00: WBC 18.8 H, RBC 4.70, Hgb 13.8, Hct 43.2, MCV 91.9, MCH 29.4, MCHC 31.9 L, RDW 14.4, RDW Differential 47.2 H, Plt Count 503 H, MPV 8.9, Immature Gran % (Auto) 0.300, Neut % (Auto) 82.2 H, Lymph % (Auto) 11.7 L, [place] % (Auto) 4.5, Eos % (Auto) 1.1, Baso % (Auto) 0.2, Absolute Neuts (auto) 15.5 H, Absolute Lymphs (auto) 2.20, Total Counted Not Reportable 11/13/17 04:00: Ethyl Alcohol < 3.0 11/13/17 04:00: Urine Opiates Screen NEGATIVE, Urine Methadone Screen NEGATIVE, Ur Barbiturates Screen NEGATIVE, Ur Phencyclidine Scrn NEGATIVE, Ur Amphetamines Screen NEGATIVE, U Methamphetamin-MDMA POSITIVE H, U Benzodiazepines Scrn NEGATIVE, Urine Cocaine Screen NEGATIVE, U Cannabinoids Screen NEGATIVE, Ur Drug Screen Comment 11/13/17 04:00: Troponin I < 0.015 11/13/17 04:18: Specimen Type ART, Sample Site R Radial, pH 7.14 L*, Bicarbonate Actual 26.9 H, POC Total CO2 29, Base Excess -2, O2 Saturation 88 L, ABG pCO2 79.7 H*, ABG pO2 73 L, O2 Delivery Device Nasal Can, Liter Flow 4.0, Blood Gas Notified Whom HOSP , Blood Gas Notified Time 412 11/13/17 07:08: Specimen Type ART, Sample Site L Radial, pH 7.33 L, Bicarbonate Actual 22.5, POC Total CO2 24, Base Excess -3 L, O2 Saturation 98, O2 % 50, ABG pCO2 42.9, ABG pO2 123 H, Denny Test POS, Respiration Rate 14, O2 Delivery Device Vent, Minute Volume 6.00, Vent Mode A-C, Tidal Volume 450, POC PEEP 5, Blood Gas Notified Whom ICU , Blood Gas Notified Time 655 11/13/17 08:15: Troponin I 0.018 11/13/17 08:15: Total Creatine Kinase 33, Triglycerides 64 11/13/17 08:55: MRSA (PCR) Pending Current Medications Acetaminophen (Tylenol) 650 mg PO Q4H PRN PRN PRN Reason: FEVER Acetaminophen (Tylenol) 650 mg PO Q6H PRN PRN PRN Reason: Mild Pain (scale 0-3)/T>100.7 Al Hydroxide/Mg Hydroxide (Mylanta Ii) 30 ml PO Q6H PRN PRN PRN Reason: Gastric burning Albuterol Sulfate (Ventolin Aerosols) 2.5 mg INHALATION Q2H PRN PRN PRN Reason: SHORTNESS OF BREATH Albuterol/Ipratropium (Duoneb) 3 ml INHALATION Q6H.RT [facility] Last Admin: 11/13/17 07:02 Dose: 3 ml Apixaban (Eliquis) 5 mg PO BID [facility] Calcium/Vitamin D (Os-Alen 500mg + D) 1 tablet PO BID [facility] Chlorhexidine Gluconate () 15 ml PO BID [facility] Donepezil HCl (Aricept) 10 mg PO QHS [facility] Famotidine (Pepcid) 20 mg PO BID [facility] Folic Acid (Folic Acid) 1 mg PO DAILY@0800 [facility] Stop: 11/15/17 08:01 Guaifenesin (Mucinex) 1,200 mg PO BID [facility] Sodium Chloride () 250 mls @ 15 mls/hr IV .[id number] PRN PRN Reason: SALINE FLUSH Fentanyl () 100 mls @ 2.5 mls/hr IV .Q40H [facility] Last Admin: 11/13/17 05:51 Dose: 2.5 mls/hr Amiodarone HCl/Dextrose (Nexterone 360 Mg/200 Ml Bag) 360 mg in 200 mls @ 33.333 mls/hr CONT INF .Q6H [facility] PRN Reason: 1 MG/MIN Stop: 11/13/17 11:09 Last Admin: 11/13/17 05:47 Dose: 33.333 mls/hr Amiodarone HCl/Dextrose (Nexterone 360 Mg/200 Ml Bag) 360 mg in 200 mls @ 16.667 mls/hr CONT INF .Q12H [facility] PRN Reason: 0.5 MG/MIN Stop: 11/14/17 05:09 Propofol (Diprivan) 1,000 mg in 100 mls @ 2.204 mls/hr CONT INF .Q12H [facility]LEEN; 5 MCG/KG/MIN PRN Reason: Protocol Last Admin: 11/13/17 06:37 Dose: 2.204 mls/hr Piperacillin Sod/Tazobactam Sod (Zosyn) 3.375 gm in 50 mls @ 12.5 mls/hr IV Q8 [facility] Last Admin: 11/13/17 08:59 Dose: 12.5 mls/hr Lactated Ringer's () 1,000 mls @ 125 mls/hr IV .Q8H [facility] Last Admin: 11/13/17 08:13 Dose: 125 mls/hr Latanoprost (Xalatan Opthalmic) 1 drop EACH EYE QHS [facility] Levothyroxine Sodium (Synthroid) 112 mcg PO DAILY@0600 [facility] Magnesium Hydroxide (Milk Of Magnesia) 30 ml PO DAILY PRN PRN Reason: Constipation Multivitamins/Minerals (Multivitamin With Minerals) 1 tablet PO DAILYCM [facility] Sodium Chloride () 5 - 30 ml IV UD PRN PRN Reason: SALINE FLUSH Last Admin: 11/13/17 07:03 Dose: 30 ml Thiamine HCl (Vitamin B1) 100 mg PO BIDCM [facility] Stop: 11/15/17 17:01 Timolol Maleate (Timoptic) 1 drop EACH EYE BID [facility] Medical Necessity - Tobacco Use Smoking Status: Never smoker Tobacco Use: Non-smoker Assessment/Plan All Active Problems Paroxysmal atrial fibrillation with RVR (Acute) Pneumonia (Acute) Community acquired pneumonia (Acute) Hypoxemia (Acute) Atrial fibrillation with RVR (Acute) CHF (congestive heart failure) (Acute) This 82-year-old female with history of paroxysmal A. fib on Eliquis, hypertension, hypothyroidism, dementia, EtOH use and dependence was admitted with history of progressive worsening of dyspnea for 1 week, orthopnea with cough: 1. Acute hypoxic and hypercarbic combined respiratory failure: Etiology unclear: Currently on IV Zosyn. MRSA nasal screen is negative. Intubated on 30% FiO2/tidal volume 450/PEEP 5. Respiratory rate 14. Nurse Licensed Practical consult reviewed. (2) presumed left lung base community Acquired Pneumonia: CXR in the ED w/ opacity consistent with pneumonia in the left lung base with possible associated partial collapse versus pleural effusion contributing to the density, stable moderate elevation of the right diaphragm. On IV antibiotics. Cultures have been ordered. Urinary antigens are negative. C. difficile negative. Respiratory panel pending. Lactic acid normal. 3. Paroxsymal atrial fibrillation w/ RVR: EKG in ED w/ atrial fibrillation w/ RVR. Was given IV Lopressor ?3 in ED and then patient administered lopressor x 3 with no response and thus started on IV Cardizem drip in ED. Patient dropped blood pressure on Cardizem drip and was discontinued. Currently on IV amiodarone drip. On Eliquis. Animal Handler has been consulted. 2D echo ordered. 4. Possible acute on chronic heart failure, HFpEF; probably precipitated by A. fib with RVR: BNP is elevated. Magnesium and phosphorus within normal limit. Repeat echo is pending. Previous echo of January 2017 shows EF 65% with left ventricular systolic function normal. Normal RV size and systolic function. Left atrium mildly enlarged. Right atrium mildly enlarged. Normal mitral valve with mild MR. 1-2+ TR, RVSP 27 mmHg. Hypotension secondary to IV Cardizem drip: Currently blood pressure is recovered. Did not require vessel pressure. (5) Hypothyroidism: Continue home synthroid regimen, TSH pending. (6) Insomnia: Continue home trazodone q HS. (7) Dementia without behavioral disturbances w/ Anxiety/Depression: Notable anxiety in the ED. Daughter lives with her, continue home aricept regimen. (8) EtOH Abuse and methamphetamine use: Patient with routine consumption of 3 vodka drinks per day. Will maintain on CIWA protocol, MVI, thiamine and folic acid. Shunt methamphetamine is positive. (9) DVT prophylaxis: SCDs, Eliquis. (10) CODE status: Patient evaluated prior and had recommended HCPOA/living will, patient notes not yet completed. Discussed CODE status at length including difference between FULL code, DNR-CCA and DNR-CC status. Following discussions about the differences in these status, confirmed continuation of Full Code status. Advanced Care Planning Face to Face Time: 17 minutes. Microbiology Past 72 Hours 11/13/17 04:00 Stool C. difficile DNA Amplification - Final 11/13/17 04:00 Urine Catheter - Brennan Legionella Antigen - Final 11/13/17 04:00 Urine Catheter - Brennan Streptococcus pneumoniae Antigen (M - Final
[2017-11-13 10:46] LABS: M R Staph aureus DNA By PCR Negative (Negative); Probe Check PASS; Specimen Processing Control PASS
[2017-11-13] MEDS: Chlorhexidine 15 ML PO ×2 (11:02→21:07)
[2017-11-13] MEDS: Timolol 0.5% 5ML OPTH.BTL 1 DRP EACH EYE ×2 (11:38→21:05)
[2017-11-13] MEDS: Famotidine 20 MG Tablet GT ×2 (11:40→21:05)
[2017-11-13] MEDS: Folic Acid 1 MG Tablet GT (11:41)
[2017-11-13] MEDS: Calcium Carb/Vitamin D 1 TABLET Tablet GT ×2 (11:41→21:05)
[2017-11-13] MEDS: Thiamine Hydrochloride 100 MG Tablet GT ×2 (11:42→16:58)
[2017-11-13] MEDS: APIXABAN 5 MG TABLET GT ×2 (11:43→21:05)
[2017-11-13] MEDS: Jevity 1.5 1,000 ML 50 ML GT (14:56)
--- NOTE | 2017-11-13 14:58 | PCM.CONS.C ---
Problem List (1) PAF (paroxysmal atrial fibrillation) Status: Chronic (2) Paroxysmal atrial fibrillation with RVR Status: Acute Reason for Consult Date of Consultation: 11/13/17 History of Present Illness: The patient is an 82-year-old female who presented to the emergency department on November 12 with generalized weakness and shortness of breath. Patient has a history that includes paroxysmal atrial fibrillation, for which she is on Eliquis, along with baseline dementia and a long-standing history of alcohol abuse. No history could be obtained from the patient regarding her hospitalization, and she is currently intubated and sedated. On presentation to the emergency department, the patient was noted to be afebrile hemodynamically stable initially. She was maintaining appropriate oxygen saturations on room air. Laboratory evaluation revealed a mildly elevated white blood cell count along with evidence of thrombocytosis. Serum lactate was within normal limits. AST and ALT were normal. Troponin was negative. BNP was elevated to 380. Toxicology screen was positive for methamphetamine. Alcohol level was negative. Plain film chest x-ray revealed evidence of a left lower lobe infiltrate. EKG revealed atrial fibrillation with a rapid ventricular rate in the 120s. The patient was initiated on a Cardizem drip. However, she experienced a vasovagal episode without syncope with a heart rate that dropped into the 80s and systolic blood pressures in the 70s. She received supplemental IV fluid hydration and was started on antibiotics. Cardizem drip was discontinued and the patient was transferred to the medical intensive care unit for ongoing management. During the investment accountant hours of November 13, the patient was noted to be increasingly lethargic and less responsive by the hospitalist. An arterial blood gas was obtained which revealed a pH of 7.14 with a PCO2 of 80 and PO2 of 73. Due to the aforementioned, the patient was emergently intubated with a #7 endotracheal tube. At the time of my visit, patient was sedated and on Ventilator. Past Medical History Allergies/Adverse Reactions: Allergies lisinopril Allergy (Verified 11/12/17 22:18) Unknown losartan [From Cozaar] Allergy (Verified 11/12/17 22:18) Unknown NSAIDS (Non-Steroidal Anti-Inflamma Allergy (Verified 11/12/17 22:18) Unknown Home Medications: Ambulatory Orders Medication Instructions Recorded Ergocalciferol [Vitamin D] 50,000 unit PO Q30D 01/16/17 Latanoprost 0.005% [Xalatan 1 drop EACH EYE QHS 01/16/17 Opthalmic] Timolol 0.5% [Timoptic] 1 drop EACH EYE BID 01/16/17 Trazodone HCl 100 mg PO QHS 01/16/17 Apixaban [Eliquis] 5 mg PO BID 11/12/17 Calcium Carbonate/Vitamin D3 1 each PO BID 11/12/17 [Calcium 600 + Vit D Caplet] Donepezil HCl [Aricept] 10 mg PO QHS 11/12/17 Levothyroxine Sodium 112 mcg PO DAILY 11/12/17 Metoprolol Tartrate [Lopressor 50 mg PO BID 11/12/17 (beta za)] Multivitamin [Multiple Vitamins] 1 each PO DAILY 11/12/17 Vit C/Vit E AC/Lut/Copper/Zinc 1 each PO BID 11/12/17 [Preservision Lutein Softgel] Past Medical History (Chronic Problems): Chronic Problems PAF (paroxysmal atrial fibrillation) (Chronic) ETOH abuse (Chronic) Chronic back pain (Chronic) Dementia without behavioral disturbance (Chronic) Obesity (BMI 30.0-34.9) (Chronic) Insomnia (Chronic) Hypothyroidism (Chronic) Hypertension (Chronic) Surgical History: - - Total abdominal hysterectomy, tonsillectomy. 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 Drugs: None Review of Systems - Review of Systems General: Reports: - - Unobtainable. Pt is sedated and on Vent. with a history of dementia. Objective: Vital Signs Temp Pulse Resp BP Pulse Ox 98.2 F 65 14 94/61 100 11/13/17 12:00 11/13/17 13:14 11/13/17 13:14 11/13/17 12:00 11/13/17 13:14 Oxygen Flow Rate (L/min) 60 Oxygen Delivery Method Mechanical Ventilator Weight: 76.5 kg Body Mass Index (BMI) 27.2 Intake and Output for Last 24 Hours 11/11/17 11/12/17 11/13/17 23:59 23:59 23:59 Intake Total 2699 / 2699 Output Total 200 / 200 Balance 2499 / 2499 Sedated on vent. Remains in A. Fib with a HR of 70 bpm. Neck: No JVD Lungs: Diminished Left Base Cardiovascular: Irregular Rhythm, No Murmurs Extremities: Bilateral Edema +1 Skin: No Rashes 11/13/17 04:00: Phosphorus 4.9, Magnesium 2.4 11/13/17 04:00: Sodium 135 L, Potassium 5.7 H, Chloride 97 L, Carbon Dioxide 30.0, Anion Gap 8, BUN 14, Creatinine 1.16 H, Est GFR (MDRD) Af Amer 57 L, Est GFR (MDRD) Non-Af 47 L, BUN/Creatinine Ratio 12.1, Glucose 164 H, Calcium 8.8 11/13/17 04:00: WBC 18.8 H, RBC 4.70, Hgb 13.8, Hct 43.2, MCV 91.9, MCH 29.4, MCHC 31.9 L, RDW 14.4, RDW Differential 47.2 H, Plt Count 503 H, MPV 8.9, Immature Gran % (Auto) 0.300, Neut % (Auto) 82.2 H, Lymph % (Auto) 11.7 L, Barry % (Auto) 4.5, Eos % (Auto) 1.1, Baso % (Auto) 0.2, Absolute Neuts (auto) 15.5 H, Total Counted Not Reportable 11/13/17 04:00: Troponin I < 0.015 11/13/17 04:18: pH 7.14 L*, Bicarbonate Actual 26.9 H, POC Total CO2 29, Base Excess -2, O2 Saturation 88 L, ABG pCO2 79.7 H*, ABG pO2 73 L 11/13/17 07:08: pH 7.33 L, Bicarbonate Actual 22.5, POC Total CO2 24, Base Excess -3 L, O2 Saturation 98, ABG pCO2 42.9, ABG pO2 123 H, Denny Test POS 11/13/17 08:15: Troponin I 0.018 11/13/17 08:15: Triglycerides 64 11/13/17 11:15: Troponin I < 0.015 Rhythm: A. Fib, EKG: ECHO: P. Stress Test: Cardiac Cath: PCI: CT Surgery: Holter monitor: EPS: PPM: CXR: Chest CT Scan: Assessment/Plan PAF, currently well-controlled HR. On Amiodarone IV, due to hypotension. Hypotension, iatrogenic, due to IV CCB for HR of 120 bpm. Minimally elevated BNP, uncertain etiology. No evidence of ACS. CAP, L base. Dementia?? Recommend: Continue current meds. Await Echo. Full anticoagulation ??
[2017-11-13 15:56] LABS: Thyroid Stim Hormone (TSH) 8.68 uIU/mL (0.358-3.74)
[2017-11-13] MEDS: Donepezil HCl 10 MG Tablet GT (21:05)
[2017-11-13] MEDS: Latanoprost 0.005% 1 Bottle 1 DRP EACH EYE (21:06)
[2017-11-13] MEDS: guaiFENesin 10 ML UDC (200MG/10ML) 20 ML GT (22:46)
[2017-11-14] VITALS (48 sets, daily range): BP systolic 76–172; BP diastolic 52–110; PULSE 71–158; RESP 14–30; TEMP 36.9–37.5; O2SAT 91–100
[2017-11-14] MEDS: Ipratropium/Albuterol Sulfate 3 ML AMPUL.NEB INHALATION ×4 (01:05→19:05)
[2017-11-14 01:16] LABS: Bedside Glucose 107 mg/dL (70-110)
[2017-11-14] MEDS: Lactated Ringers 1,000 ML 125 ML IV (01:30)
[2017-11-14] MEDS: guaiFENesin 10 ML UDC (200MG/10ML) 20 ML GT ×2 (03:00→06:40)
[2017-11-14 04:31] LABS: Absolute Lymphocyte Count 1.24 X10^3/ul (0.83-4.51); Basophil# 0.03 X10^3/uL; Basophil% 0.2 % (0-1); Eosinophil# 0.23 X10^3/uL; Eosinophils% 1.9 % (0-5); Hematocrit 36.8 % (37-47); Hemoglobin 12.4 g/dl (12.0-15.0); Lymphocyte # 1.24 X10^3/ul (4.0); Lymphocyte % 10.2 % (19-41); Mean Corp Hgb Conc 33.7 g/gl (32-36); Mean Corpuscular Hgb 29.5 pg (27.0-32.0); Mean Corpuscular Volume 87.4 fL (81-99); Mean Platelet Vol. 8.6 fl (6.2-12.0); Monocyte# 0.67 X10^3/uL; Monocyte% 5.5 % (0-10); Neutrophil # 9.99 X10^3/uL (2.7-7.7); Platelet Count 376 K/mm3 (150-450); RBC Distribution Width CV 14.4 % (11.6-14.6); Red Blood Count 4.21 M/mm3 (4.2-5.4); White Blood Count 12.2 K/mm3 (4.4-11.0)
[2017-11-14 04:42] LABS: Anion Gap 10 (5-15); BUN 16 mg/dL (7-18); BUN/Creat Ratio 13.7 RATIO (10-20); Calcium,Total 7.9 mg/dL (8.5-10.1); Chloride 100 mmol/L (98-107); Creatinine, Serum 1.17 mg/dL (0.55-1.02); EST Glomerular Filtration Rate 47 mL/min (>60); Est Glom Filt Rate - Afr Amer 57 mL/min (>60); Glucose 131 mg/dL (74-106); Potassium 3.8 mmol/L (3.5-5.1); Sodium Level 136 mmol/L (136-145)
[2017-11-14 04:45] LABS: POSITIVE COUNT NO; POSITIVE DIFFERENTIAL NO; POSITIVE MORPHOLOGY NO
[2017-11-14] MEDS: Propofol 10MG/Ml 1,000 MG/100 ML Bottle 2.204 MG CONT INF (05:55)
[2017-11-14] MEDS: Piperacil/Tazobactam 3.375 GM/50 ML ML IV ×3 (06:40→21:00)
[2017-11-14] MEDS: Levothyroxine 112 MCG Tablet GT (06:40)
--- NOTE | 2017-11-14 07:14 | PCM.PN.INT ---
Subjective: Patient did okay overnight. Patient had some difficulty with spontaneous awakening trial, but was able to be calm down. On initiation of a spontaneous breathing trial, patient was noted to be apneic. Patient is not interacting during my evaluation. Heart rate has been better controlled. Patient continues on amiodarone. Patient is currently tolerating tube feeds. General: - - RASS -3. Good vent synchrony noted. Appears stated age. HEENT: Atraumatic, PERRLA, EOMI, Normocephalic, - - No scleral icterus or injection noted. Oral: Moist Mucosa, No Gingival or Mucosal Lesions/ Ulcerations Neck: Supple, No JVD, No Nodes, Trachea Midline Lungs: No rhonchi, No wheeze, No rales, Diminished, - - Decreased expansion on the right. Cardiovascular: Normal S1, Normal S2, No murmurs, Irregular Rate, No rub noted, No Gallop Abdomen: Bowel Sounds Present, Soft, Non Tender, Non-Distended, Obese Extremities: No clubbing, No cyanosis, Capillary Refill Less than 3 Seconds, Edema Skin: No rashes, No breakdown Musculoskeletal: No Tenderness to Palpation of Joints or Extremities Lymphatic: No Cervical, Supraclavicular, or Inguinal Adenopathy Neurological: Cranial nerves II-XII grossly intact, - - Moves all extremities spontaneously. No focal neurologic deficits appreciated. Psych/Mental Status: Flat Affect Vital Signs Temp Pulse Resp BP Pulse Ox 37.5 C H 86 14 99/65 99 11/14/17 06:00 11/14/17 06:00 11/14/17 06:00 11/14/17 06:00 11/14/17 06:00 Oxygen Flow Rate (L/min) 60 Oxygen Delivery Method Mechanical Ventilator Weight: 78.2 kg Body Mass Index (BMI) 27.2 Intake and Output for Last 24 Hours 11/12/17 11/13/17 11/14/17 23:59 23:59 23:59 Intake Total 4060 / 4060 2619.4 / 2619.4 Output Total 275 / 275 350 / 350 Balance 3785 / 3785 2269.4 / 2269.4 Labs (Last 48 Hours) 11/13/17 11/13/17 11/13/17 04:00 04:00 04:00 WBC 18.8 H RBC 4.70 Hgb 13.8 Hct 43.2 MCV 91.9 MCH 29.4 MCHC 31.9 L RDW 14.4 RDW Differential 47.2 H Plt Count 503 H MPV 8.9 Immature Gran % (Auto) 0.300 Neut % (Auto) 82.2 H Lymph % (Auto) 11.7 L Forest % (Auto) 4.5 Eos % (Auto) 1.1 Baso % (Auto) 0.2 Absolute Neuts (auto) 15.5 H Absolute Lymphs (auto) 2.20 Total Counted Not Reportable Specimen Type Sample Site pH Bicarbonate Actual POC Total CO2 Base Excess O2 Saturation O2 % ABG pCO2 ABG pO2 Denny Test Respiration Rate O2 Delivery Device Liter Flow Minute Volume Vent Mode Tidal Volume POC PEEP Blood Gas Notified Whom Blood Gas Notified Time Sodium 135 L Potassium 5.7 H Chloride 97 L Carbon Dioxide 30.0 Anion Gap 8 BUN 14 Creatinine 1.16 H Estim Creat Clear Calc 32.29 Est GFR (MDRD) Af Amer 57 L Est GFR (MDRD) Non-Af 47 L BUN/Creatinine Ratio 12.1 Glucose 164 H Calcium 8.8 Phosphorus 4.9 Magnesium 2.4 Total Creatine Kinase Troponin I Triglycerides TSH Urine Opiates Screen Urine Methadone Screen Ur Barbiturates Screen Ur Phencyclidine Scrn Ur Amphetamines Screen U Methamphetamin-MDMA U Benzodiazepines Scrn Urine Cocaine Screen U Cannabinoids Screen Ur Drug Screen Comment Ethyl Alcohol MRSA (PCR) POC Glucose 11/13/17 11/13/17 11/13/17 04:00 04:00 04:00 WBC RBC Hgb Hct MCV MCH MCHC RDW RDW Differential Plt Count MPV Immature Gran % (Auto) Neut % (Auto) Lymph % (Auto) Forest % (Auto) Eos % (Auto) Baso % (Auto) Absolute Neuts (auto) Absolute Lymphs (auto) Total Counted Specimen Type Sample Site pH Bicarbonate Actual POC Total CO2 Base Excess O2 Saturation O2 % ABG pCO2 ABG pO2 Denny Test Respiration Rate O2 Delivery Device Liter Flow Minute Volume Vent Mode Tidal Volume POC PEEP Blood Gas Notified Whom Blood Gas Notified Time Sodium Potassium Chloride Carbon Dioxide Anion Gap BUN Creatinine Estim Creat Clear Calc Est GFR (MDRD) Af Amer Est GFR (MDRD) Non-Af BUN/Creatinine Ratio Glucose Calcium Phosphorus Magnesium Total Creatine Kinase Troponin I < 0.015 Triglycerides TSH Urine Opiates Screen NEGATIVE Urine Methadone Screen NEGATIVE Ur Barbiturates Screen NEGATIVE Ur Phencyclidine Scrn NEGATIVE Ur Amphetamines Screen NEGATIVE U Methamphetamin-MDMA POSITIVE H U Benzodiazepines Scrn NEGATIVE Urine Cocaine Screen NEGATIVE U Cannabinoids Screen NEGATIVE Ur Drug Screen Comment Ethyl Alcohol < 3.0 MRSA (PCR) POC Glucose 11/13/17 11/13/17 11/13/17 04:18 07:08 08:15 WBC RBC Hgb Hct MCV MCH MCHC RDW RDW Differential Plt Count MPV Immature Gran % (Auto) Neut % (Auto) Lymph % (Auto) Forest % (Auto) Eos % (Auto) Baso % (Auto) Absolute Neuts (auto) Absolute Lymphs (auto) Total Counted Specimen Type ART ART Sample Site R Radial L Radial pH 7.14 L* 7.33 L Bicarbonate Actual 26.9 H 22.5 POC Total CO2 29 24 Base Excess -2 -3 L O2 Saturation 88 L 98 O2 % 50 ABG pCO2 79.7 H* 42.9 ABG pO2 73 L 123 H Denny Test POS Respiration Rate 14 O2 Delivery Device Nasal Can Vent Liter Flow 4.0 Minute Volume 6.00 Vent Mode A-C Tidal Volume 450 POC PEEP 5 Blood Gas Notified Whom HOSP ICU Blood Gas Notified Time 412 655 Sodium Potassium Chloride Carbon Dioxide Anion Gap BUN Creatinine Estim Creat Clear Calc Est GFR (MDRD) Af Amer Est GFR (MDRD) Non-Af BUN/Creatinine Ratio Glucose Calcium Phosphorus Magnesium Total Creatine Kinase Troponin I 0.018 Triglycerides TSH Urine Opiates Screen Urine Methadone Screen Ur Barbiturates Screen Ur Phencyclidine Scrn Ur Amphetamines Screen U Methamphetamin-MDMA U Benzodiazepines Scrn Urine Cocaine Screen U Cannabinoids Screen Ur Drug Screen Comment Ethyl Alcohol MRSA (PCR) POC Glucose 11/13/17 11/13/17 11/13/17 08:15 08:15 08:55 WBC RBC Hgb Hct MCV MCH MCHC RDW RDW Differential Plt Count MPV Immature Gran % (Auto) Neut % (Auto) Lymph % (Auto) Forest % (Auto) Eos % (Auto) Baso % (Auto) Absolute Neuts (auto) Absolute Lymphs (auto) Total Counted Specimen Type Sample Site pH Bicarbonate Actual POC Total CO2 Base Excess O2 Saturation O2 % ABG pCO2 ABG pO2 Denny Test Respiration Rate O2 Delivery Device Liter Flow Minute Volume Vent Mode Tidal Volume POC PEEP Blood Gas Notified Whom Blood Gas Notified Time Sodium Potassium Chloride Carbon Dioxide Anion Gap BUN Creatinine Estim Creat Clear Calc Est GFR (MDRD) Af Amer Est GFR (MDRD) Non-Af BUN/Creatinine Ratio Glucose Calcium Phosphorus Magnesium Total Creatine Kinase 33 Troponin I Triglycerides 64 TSH 8.68 H Urine Opiates Screen Urine Methadone Screen Ur Barbiturates Screen Ur Phencyclidine Scrn Ur Amphetamines Screen U Methamphetamin-MDMA U Benzodiazepines Scrn Urine Cocaine Screen U Cannabinoids Screen Ur Drug Screen Comment Ethyl Alcohol MRSA (PCR) Negative POC Glucose 11/13/17 11/14/17 11/14/17 11:15 01:06 04:20 WBC 12.2 H RBC 4.21 Hgb 12.4 Hct 36.8 L MCV 87.4 MCH 29.5 MCHC 33.7 RDW 14.4 RDW Differential 46.0 H Plt Count 376 MPV 8.6 Immature Gran % (Auto) 0.200 Neut % (Auto) 82.0 H Lymph % (Auto) 10.2 L Forest % (Auto) 5.5 Eos % (Auto) 1.9 Baso % (Auto) 0.2 Absolute Neuts (auto) 10.0 H Absolute Lymphs (auto) 1.24 Total Counted Not Reportable Specimen Type Sample Site pH Bicarbonate Actual POC Total CO2 Base Excess O2 Saturation O2 % ABG pCO2 ABG pO2 Denny Test Respiration Rate O2 Delivery Device Liter Flow Minute Volume Vent Mode Tidal Volume POC PEEP Blood Gas Notified Whom Blood Gas Notified Time Sodium Potassium Chloride Carbon Dioxide Anion Gap BUN Creatinine Estim Creat Clear Calc Est GFR (MDRD) Af Amer Est GFR (MDRD) Non-Af BUN/Creatinine Ratio Glucose Calcium Phosphorus Magnesium Total Creatine Kinase Troponin I < 0.015 Triglycerides TSH Urine Opiates Screen Urine Methadone Screen Ur Barbiturates Screen Ur Phencyclidine Scrn Ur Amphetamines Screen U Methamphetamin-MDMA U Benzodiazepines Scrn Urine Cocaine Screen U Cannabinoids Screen Ur Drug Screen Comment Ethyl Alcohol MRSA (PCR) POC Glucose 107 11/14/17 04:20 WBC RBC Hgb Hct MCV MCH MCHC RDW RDW Differential Plt Count MPV Immature Gran % (Auto) Neut % (Auto) Lymph % (Auto) Forest % (Auto) Eos % (Auto) Baso % (Auto) Absolute Neuts (auto) Absolute Lymphs (auto) Total Counted Specimen Type Sample Site pH Bicarbonate Actual POC Total CO2 Base Excess O2 Saturation O2 % ABG pCO2 ABG pO2 Denny Test Respiration Rate O2 Delivery Device Liter Flow Minute Volume Vent Mode Tidal Volume POC PEEP Blood Gas Notified Whom Blood Gas Notified Time Sodium 136 Potassium 3.8 Chloride 100 Carbon Dioxide 26.0 Anion Gap 10 BUN 16 Creatinine 1.17 H Estim Creat Clear Calc 34.70 Est GFR (MDRD) Af Amer 57 L Est GFR (MDRD) Non-Af 47 L BUN/Creatinine Ratio 13.7 Glucose 131 H Calcium 7.9 L Phosphorus Magnesium Total Creatine Kinase Troponin I Triglycerides TSH Urine Opiates Screen Urine Methadone Screen Ur Barbiturates Screen Ur Phencyclidine Scrn Ur Amphetamines Screen U Methamphetamin-MDMA U Benzodiazepines Scrn Urine Cocaine Screen U Cannabinoids Screen Ur Drug Screen Comment Ethyl Alcohol MRSA (PCR) POC Glucose Microbiology 11/13/17 05:08 Mucosa - Nasopharyngeal Respiratory Panel (PCR) - Final 11/13/17 04:00 Stool C. difficile DNA Amplification - Final 11/13/17 04:00 Urine Catheter - Brennan Legionella Antigen - Final 11/13/17 04:00 Urine Catheter - Brennan Streptococcus pneumoniae Antigen (M - Final Clinical Impression(s) from Imaging Studies Chest X-Ray 11/14/17 04:10 IMPRESSION: Stable left basilar alveolar disease and left pleural fluid. Electronically Signed: Gary Stoll MD at 5:11 EDT Tel , Service support , Medical Necessity - Tobacco Use Smoking Status: Never smoker Tobacco Use: Non-smoker Assessment/Plan All Active Problems Paroxysmal atrial fibrillation with RVR (Acute) Pneumonia (Acute) Community acquired pneumonia (Acute) Hypoxemia (Acute) Atrial fibrillation with RVR (Acute) CHF (congestive heart failure) (Acute) RECOMMENDATIONS: 1. Turn off sedative medications 2. Continue empiric antibiotics 3. Transition from current antibiotics to Zosyn. Check MRSA screen. 4. Amiodarone per cardiology recommendations 5. Await echocardiogram 6. Discontinue IV fluids since tolerating tube feeds 7. Discuss with family about goals of therapy. IMPRESSIONS: 1. Acute hypoxemic and hypercarbic respiratory failure Unclear etiology at this time. Patient is oxygenating well. Patient was apneic during spontaneous breathing trial, but this may be related to medications. We will hold sedation and narcotics for now. Patient is on empiric antibiotics, but cultures are still pending. Viral panel was negative. Patient reportedly does not have an extensive smoking history. Chest x-ray showed decreased volume on the right with appropriate endotracheal tube positioning. Patient does have some elevation of the right hemidiaphragm, but no history of thoracic surgery that we are aware of. 2. Paroxysmal atrial fibrillation with rapid ventricular rate Rate much improved at this time. Continue amiodarone as ordered. Continue baseline Eliquis therapy. Cardiology has been consulted to assist with management. 3. Sepsis secondary to presumptive community-acquired pneumonia Continue current supportive measures and antibiotics as ordered. Await infectious workup. 4. Acute kidney injury Creatinine relatively unchanged compared to previous. Patient tolerating tube feeds, so will discontinue IV fluids given patient's history of diastolic dysfunction. Monitor urine output accordingly. Anticipate improvement with stabilization of hemodynamics. No indication for renal replacement therapy at this time. 5. Questionable heart failure with preserved ejection fraction The patient's last echocardiogram revealed preserved ejection fraction. However, her BNP was elevated, which may be secondary to atrial fibrillation with rapid ventricular rate. A repeat echocardiogram is currently pending. Cardiology consultation is pending. 6. Hypertension/hypothyroidism/dementia/history of alcohol abuse Complicates care, management, recovery and prognosis. Continue baseline Synthroid dose. Per the patient's family, she was previously a heavy drinker but has been abstinent from alcohol since January 2017. Electrolyte repletion as indicated. Will discuss with family about goals of therapy later today. TIME: 37 minutes of critical care time, independent of procedures, was spent addressing the patient's acute hypoxemic and hypercarbic respiratory failure, paroxysmal atrial fibrillation with rapid ventricular rate, possible sepsis secondary to community-acquired pneumonia, acute kidney injury, review of all data and collaboration with the care team. (6 AM to 7 AM) Code Visit [id number]: [id number] Critical care first hour
--- NOTE | 2017-11-14 07:56 | PCM.PN.HOSP ---
Patient Problems: Active and Suspected Problems Paroxysmal atrial fibrillation with RVR (Acute) Pneumonia (Acute) Community acquired pneumonia (Acute) Hypoxemia (Acute) Atrial fibrillation with RVR (Acute) CHF (congestive heart failure) (Acute) Subjective: Patient is awake. Sedatives are turned off. Patient was apneic on spontaneous breathing trial, therefore back on volume control, CMV mode, FiO2 25%, respiratory rate 14, PEEP 5. Patient is spontaneous RR 16-18/min. On IV antibiotic. Vitals/I&O's: Vital Signs Temp Pulse Resp BP Pulse Ox 98.7 F 88 14 101/71 99 11/14/17 07:00 11/14/17 07:35 11/14/17 07:35 11/14/17 07:00 11/14/17 07:35 Oxygen Flow Rate (L/min) 60 Oxygen Delivery Method Mechanical Ventilator Weight: 172 lb 6.424 oz Body Mass Index (BMI) 27.2 Intake and Output for Last 24 Hours 11/12/17 11/13/17 11/14/17 23:59 23:59 23:59 Intake Total 4060 / 4060 2619.4 / 2619.4 Output Total 275 / 275 350 / 350 Balance 3785 / 3785 2269.4 / 2269.4 General: Cooperative, Lethargic HEENT: Atraumatic, PERRLA, EOMI, Normocephalic Oral: - - ET and OG tube. On tube feed Neck: Supple, No JVD, Negative Carotid Bruits Lungs: Rhonchi, - - On vent support Cardiovascular: Regular rate, No murmurs Abdomen: Bowel Sounds Present, Soft, Non Tender Extremities: Capillary Refill Less than 3 Seconds, Edema Skin: No rashes, No breakdown Musculoskeletal: No Tenderness to Palpation of Joints or Extremities Neurological: Cranial nerves II-XII grossly intact Psych/Mental Status: Normal Affect, Appropriate Microbiology Past 72 Hours 11/13/17 05:08 Mucosa - Nasopharyngeal Respiratory Panel (PCR) - Final 11/13/17 04:00 Stool C. difficile DNA Amplification - Final 11/13/17 04:00 Urine Catheter - Brennan Legionella Antigen - Final 11/13/17 04:00 Urine Catheter - Brennan Streptococcus pneumoniae Antigen (M - Final Laboratory Results 11/13/17 08:15: Troponin I 0.018 11/13/17 08:15: Total Creatine Kinase 33, Triglycerides 64 11/13/17 08:15: TSH 8.68 H 11/13/17 08:55: MRSA (PCR) Negative 11/13/17 11:15: Troponin I < 0.015 11/14/17 01:06: POC Glucose 107 11/14/17 04:20: WBC 12.2 H, RBC 4.21, Hgb 12.4, Hct 36.8 L, MCV 87.4, MCH 29.5, MCHC 33.7, RDW 14.4, RDW Differential 46.0 H, Plt Count 376, MPV 8.6, Immature Gran % (Auto) 0.200, Neut % (Auto) 82.0 H, Lymph % (Auto) 10.2 L, [place] % (Auto) 5.5, Eos % (Auto) 1.9, Baso % (Auto) 0.2, Absolute Neuts (auto) 10.0 H, Absolute Lymphs (auto) 1.24, Total Counted Not Reportable 11/14/17 04:20: Sodium 136, Potassium 3.8, Chloride 100, Carbon Dioxide 26.0, Anion Gap 10, BUN 16, Creatinine 1.17 H, Estim Creat Clear Calc 34.70, Est GFR (MDRD) Af Amer 57 L, Est GFR (MDRD) Non-Af 47 L, BUN/Creatinine Ratio 13.7, Glucose 131 H, Calcium 7.9 L Current Medications Acetaminophen (Tylenol Liquid) 650 mg GT Q6H PRN PRN PRN Reason: Mild Pain (scale 0-3)/T>100.7 Al Hydroxide/Mg Hydroxide (Mylanta Ii) 30 ml GT Q6H PRN PRN PRN Reason: Gastric burning Albuterol Sulfate (Ventolin Aerosols) 2.5 mg INHALATION Q2H PRN PRN PRN Reason: SHORTNESS OF BREATH Albuterol/Ipratropium (Duoneb) 3 ml INHALATION Q6H.RT [facility] Last Admin: 11/14/17 07:10 Dose: 3 ml Apixaban (Eliquis) 5 mg GT BID [facility] Last Admin: 11/13/17 21:05 Dose: 5 mg Calcium/Vitamin D (Os-Alen 500mg + D) 1 tablet GT BID [facility] Last Admin: 11/13/17 21:05 Dose: 1 tablet Chlorhexidine Gluconate () 15 ml PO BID [facility] Last Admin: 11/13/17 21:07 Dose: 15 mls Donepezil HCl (Aricept) 10 mg GT QHS [facility] Last Admin: 11/13/17 21:05 Dose: 10 mg Famotidine (Pepcid) 20 mg GT BID [facility] Last Admin: 11/13/17 21:05 Dose: 20 mg Folic Acid (Folic Acid) 1 mg GT DAILY@0800 [facility] Stop: 11/15/17 08:01 Last Admin: 11/13/17 11:41 Dose: 1 mg Guaifenesin (Robitussin) 20 ml GT Q4 [facility] Last Admin: 11/13/17 22:46 Dose: 20 ml Sodium Chloride () 250 mls @ 15 mls/hr IV .[id number] PRN PRN Reason: SALINE FLUSH Fentanyl () 100 mls @ 2.5 mls/hr IV .Q40H [facility] Last Admin: 11/13/17 16:58 Dose: 2.5 mls/hr Propofol (Diprivan) 1,000 mg in 100 mls @ 2.204 mls/hr CONT INF .Q12H [facility]; 5 MCG/KG/MIN PRN Reason: Protocol Last Admin: 11/14/17 05:55 Dose: 2.204 mls/hr Piperacillin Sod/Tazobactam Sod (Zosyn) 3.375 gm in 50 mls @ 12.5 mls/hr IV Q8 [facility] Last Admin: 11/13/17 21:06 Dose: 12.5 mls/hr Lactated Ringer's () 1,000 mls @ 125 mls/hr IV .Q8H [facility] Last Admin: 11/14/17 01:30 Dose: 125 mls/hr Enteral Nutritional Formula (Jevity 1.5) 1,000 mls @ 50 mls/hr GT .Q20H [facility] Last Admin: 11/13/17 14:56 Dose: 50 mls/hr Latanoprost (Xalatan Opthalmic) 1 drop EACH EYE QHS [facility] Last Admin: 11/13/17 21:06 Dose: 1 drop Levothyroxine Sodium (Synthroid) 112 mcg GT DAILY@0600 [facility] Magnesium Hydroxide (Milk Of Magnesia) 30 ml GT DAILY PRN PRN Reason: Constipation Multivitamins/Minerals (Multivitamin With Minerals) 1 tablet GT DAILYCM [facility] Sodium Chloride () 5 - 30 ml IV UD PRN PRN Reason: SALINE FLUSH Last Admin: 11/13/17 07:03 Dose: 30 ml Thiamine HCl (Vitamin B1) 100 mg GT BIDCM AILEEN Stop: 11/15/17 17:01 Last Admin: 11/13/17 16:58 Dose: 100 mg Timolol Maleate (Timoptic) 1 drop EACH EYE BID [facility] Last Admin: 11/13/17 21:05 Dose: 1 drop Medical Necessity - Tobacco Use Smoking Status: Never smoker Tobacco Use: Non-smoker Assessment/Plan All Active Problems Paroxysmal atrial fibrillation with RVR (Acute) Pneumonia (Acute) Community acquired pneumonia (Acute) Hypoxemia (Acute) Atrial fibrillation with RVR (Acute) CHF (congestive heart failure) (Acute) This 82-year-old female with history of paroxysmal A. fib on Eliquis, hypertension, hypothyroidism, dementia, EtOH use and dependence was admitted with history of progressive worsening of dyspnea for 1 week, orthopnea with cough: 1. Acute hypoxic and hypercarbic combined respiratory failure: Etiology unclear: Currently on IV Zosyn. MRSA nasal screen is negative. Intubated on 25% FiO2/tidal volume 450/PEEP 5. Respiratory rate 14. Assistant Professor Of Art consult and follow-up reviewed. (2) presumed left lung base community Acquired Pneumonia: CXR in the ED w/ opacity consistent with pneumonia in the left lung base with possible associated partial collapse versus pleural effusion contributing to the density, stable moderate elevation of the right diaphragm. On IV antibiotics. Cultures have been ordered. Urinary antigens are negative. C. difficile negative. Respiratory panel negative. Lactic acid normal. 3. Paroxsymal atrial fibrillation w/ RVR: EKG in ED w/ atrial fibrillation w/ RVR. Was given IV Lopressor ?3 in ED and then patient administered lopressor x 3 with no response and thus started on IV Cardizem drip in ED. Patient dropped blood pressure on Cardizem drip and was discontinued. IV amiodarone drip discontinued. On Eliquis. Senior Planning Analyst has been consulted. 2D echo ordered. 4. Possible acute on chronic heart failure, HFpEF; probably precipitated by A. fib with RVR: BNP is elevated. Magnesium and phosphorus within normal limit. Repeat echo is pending. Previous echo of January 2017 shows EF 65% with left ventricular systolic function normal. Normal RV size and systolic function. Left atrium mildly enlarged. Right atrium mildly enlarged. Normal mitral valve with mild MR. 1-2+ TR, RVSP 27 mmHg. Hypotension secondary to IV Cardizem drip: Currently blood pressure is recovered. Did not require vessel pressure. (5) Hypothyroidism: Continue home synthroid regimen, TSH elevated probably due to euthyroid sick syndrome (6) Insomnia: (7) Dementia without behavioral disturbances w/ Anxiety/Depression: Notable anxiety in the ED. Daughter lives with her, continue home aricept regimen. (8) EtOH Abuse and methamphetamine use: Patient with routine consumption of 3 vodka drinks per day. Will maintain on CIWA protocol, MVI, thiamine and folic acid. Shunt methamphetamine is positive. (9) DVT prophylaxis: SCDs Eliquis. Microbiology Past 72 Hours 11/13/17 04:00 Stool C. difficile DNA Amplification - Final 11/13/17 04:00 Urine Catheter - Brennan Legionella Antigen - Final 11/13/17 04:00 Urine Catheter - Brennan Streptococcus pneumoniae Antigen (M - Final Laboratory Results 11/13/17 08:15: Troponin I 0.018 11/13/17 08:15: Total Creatine Kinase 33, Triglycerides 64 11/13/17 08:15: TSH 8.68 H 11/13/17 08:55: MRSA (PCR) Negative 11/13/17 11:15: Troponin I < 0.015 11/14/17 01:06: POC Glucose 107 11/14/17 04:20: WBC 12.2 H, RBC 4.21, Hgb 12.4, Hct 36.8 L, MCV 87.4, MCH 29.5, MCHC 33.7, RDW 14.4, RDW Differential 46.0 H, Plt Count 376, MPV 8.6, Immature Gran % (Auto) 0.200, Neut % (Auto) 82.0 H, Lymph % (Auto) 10.2 L, [place] % (Auto) 5.5, Eos % (Auto) 1.9, Baso % (Auto) 0.2, Absolute Neuts (auto) 10.0 H, Absolute Lymphs (auto) 1.24, Total Counted Not Reportable 11/14/17 04:20: Sodium 136, Potassium 3.8, Chloride 100, Carbon Dioxide 26.0, Anion Gap 10, BUN 16, Creatinine 1.17 H, Estim Creat Clear Calc 34.70, Est GFR (MDRD) Af Amer 57 L, Est GFR (MDRD) Non-Af 47 L, BUN/Creatinine Ratio 13.7, Glucose 131 H, Calcium 7.9 L Code Visit Inpatient E&M: 71814 Subs Hosp L3
[2017-11-14 09:34] LABS: BNP,B-Type NATRIURETIC PEPTIDE 122.9 pg/mL (0-100)
[2017-11-14 09:41] LABS: Allen Test POS; Base Excess 0 mmol/L (-2 to +2); Bicarbonate 24.1 mmol/L (22-26); Blood Gas Specimen Type ART; FI02 25; Mode CPAP PS; O2 Delivery Device Vent; PEEP 5; PO2 66 mmHG (75-100); PS 5; SITE R Radial; SO2 93 % (95-99); Time Given 940; Total Carbon Dioxide 25 mmol/L; pCO2 36.9 mmHg (35-45); pH 7.42 (7.35-7.45)
--- NOTE | 2017-11-14 10:17 | PCM.PN.CARD ---
Subjectve: Patient awake, alert, still intubated, extubation weaning process in progress. Answers questions by squeezing my hand or nodding yes or no. Daughter at the bedside. Telemetry shows atrial fibrillation with controlled ventricular response. Currently off amiodarone drip. Objective: Vital Signs Temp Pulse Resp BP Pulse Ox 98.7 F 87 18 101/71 99 11/14/17 07:00 11/14/17 10:05 11/14/17 10:05 11/14/17 07:00 11/14/17 10:05 Oxygen Flow Rate (L/min) 4 Oxygen Delivery Method Nasal Cannula Weight: 172 lb 6.424 oz Body Mass Index (BMI) 27.2 Intake and Output for Last 24 Hours 11/12/17 11/13/17 11/14/17 23:59 23:59 23:59 Intake Total 4060 / 4060 2619.4 / 2619.4 Output Total 275 / 275 350 / 350 Balance 3785 / 3785 2269.4 / 2269.4 General: Awake, Alert, Oriented x 3 HEENT: PERRL, EOMI, Sclera Non Icteric Neck: Supple, Good ROM, No Lymph Node Enlargement Lungs: Clear to auscultation Cardiovascular: Irregular Rhythm, Normal S1, Normal S2, No Murmurs, No Rubs, No Gallops Vascular: No Carotid Bruits, Normal Femoral Pulses, Normal Radial Pulses, Normal Dorsalis Pedal Pulse, Normal Posterior Tibial Pulses Abdomen: Bowel Sounds Present, Soft, Non Tender, No HSM, No Organomegaly Extremities: No Cyanosis, No Clubbing, No edema Neurological: No Focal Motor or Sensory Deficit 11/13/17 11:15: Troponin I < 0.015 11/14/17 04:20: B-Natriuretic Peptide 122.9 H 11/14/17 04:20: WBC 12.2 H, RBC 4.21, Hgb 12.4, Hct 36.8 L, MCV 87.4, MCH 29.5, MCHC 33.7, RDW 14.4, RDW Differential 46.0 H, Plt Count 376, MPV 8.6, Immature Gran % (Auto) 0.200, Neut % (Auto) 82.0 H, Lymph % (Auto) 10.2 L, [place] % (Auto) 5.5, Eos % (Auto) 1.9, Baso % (Auto) 0.2, Absolute Neuts (auto) 10.0 H, Total Counted Not Reportable 11/14/17 04:20: Sodium 136, Potassium 3.8, Chloride 100, Carbon Dioxide 26.0, Anion Gap 10, BUN 16, Creatinine 1.17 H, Est GFR (MDRD) Af Amer 57 L, Est GFR (MDRD) Non-Af 47 L, BUN/Creatinine Ratio 13.7, Glucose 131 H, Calcium 7.9 L 11/14/17 09:36: pH 7.42, Bicarbonate Actual 24.1, POC Total CO2 25, Base Excess 0, O2 Saturation 93 L, ABG pCO2 36.9, ABG pO2 66 L, Denny Test POS Rhythm: EKG: ECHO: Echo from 2012 showed normal LV function with an EF of 65%, RVSP of around 35 mmHg. Repeat echo is pending. Stress Test: Cardiac Cath: PCI: CT Surgery: Holter monitor: EPS: PPM: CXR: Chest CT Scan: Medical Necessity - Tobacco Use Smoking Status: Never smoker Tobacco Use: Non-smoker Assessment/Plan 1. Atrial fibrillation: The patient is currently in atrial fibrillation and was on Eliquis therapy at home. Recommend continuing anticoagulation therapy either in the form of Eliquis by NG tube, or subcu Lovenox 1 mg/kg daily until she is able to take p.o. Her heart rate is well controlled at this time. Would recommend holding off on amiodarone drip unless it is required to facilitate extubation. 2D echo with Doppler is pending, and will review to see whether her LV function has in any way deteriorated since 2013's echo. If her LV function is worse, she may require a diagnostic coronary angiogram prior to discharge. If her LV function has remained the same, she may require a noninvasive stress test as an outpatient. Her troponins have all been negative. 2. Thank you very much for the opportunity to participate in the cardiac care of your patient. Code Visit Inpatient E&M: 36481 Subs Hosp L2
[2017-11-14] MEDS: Metoprolol Tartrate 5 MG/5 ML Vial IV ×2 (11:01→14:43)
[2017-11-14] MEDS: 0.9% NaCl Peripheral Flush Adult/Peds IV ×3 (11:02→14:44)
[2017-11-14] MEDS: Ondansetron 4 MG/2 ML Vial IV (12:15)
[2017-11-14] MEDS: Timolol 0.5% 5ML OPTH.BTL 1 DRP EACH EYE ×2 (13:03→21:02)
[2017-11-14] MEDS: APIXABAN 5 MG TABLET PO ×2 (13:04→21:01)
[2017-11-14] MEDS: guaiFENesin 10 ML UDC (200MG/10ML) 20 ML PO ×3 (13:04→21:00)
[2017-11-14] MEDS: Folic Acid 1 MG Tablet PO (13:05)
[2017-11-14] MEDS: Famotidine 20 MG Tablet PO ×2 (13:05→21:01)
[2017-11-14] MEDS: Metoprolol Tartrate 25 MG Tablet PO ×2 (13:08→14:44)
--- NOTE | 2017-11-14 16:07 | CASEMGMT ---
RN CM Assessment complete. See Link. DC PLAN: home -Daughter states pt was fairly independent prior to admission but needs assist due to alzheimer's. -Daughter stated that her mother does not wish to be on ventilator, but is hard of hearing so may not understand questions when asked. -Plan is to have pt return home with daughter. -PT/OT evaluations reviewed. PT recommendation is for Home. Lauro CASEY RN AC
[2017-11-14] MEDS: Thiamine Hydrochloride 100 MG Tablet PO (18:33)
[2017-11-14] MEDS: Calcium Carb/Vitamin D 1 TABLET Tablet PO (21:01)
[2017-11-14] MEDS: Donepezil HCl 10 MG Tablet PO (21:01)
[2017-11-14] MEDS: QUEtiapine 25 MG Tablet PO (21:01)
[2017-11-14] MEDS: Latanoprost 0.005% 1 Bottle 1 DRP EACH EYE (21:02)
[2017-11-14] MEDS: Metoprolol Tartrate 50 MG Tablet PO (21:04)
[2017-11-15] VITALS (26 sets, daily range): BP systolic 96–168; BP diastolic 62–99; PULSE 75–166; RESP 16–28; TEMP 36.3–36.8; O2SAT 93–100
[2017-11-15] MEDS: Mag Hydrox/Al Hydrox/Simeth 30 ML UDC PO (00:59)
[2017-11-15] MEDS: guaiFENesin 10 ML UDC (200MG/10ML) 20 ML PO (01:01)
[2017-11-15 05:08] LABS: Absolute Lymphocyte Count 1.35 X10^3/ul (0.83-4.51); Basophil# 0.02 X10^3/uL; Basophil% 0.2 % (0-1); Eosinophil# 0.11 X10^3/uL; Eosinophils% 0.9 % (0-5); Hematocrit 38.2 % (37-47); Hemoglobin 12.1 g/dl (12.0-15.0); Lymphocyte # 1.35 X10^3/ul (4.0); Lymphocyte % 10.7 % (19-41); Mean Corp Hgb Conc 31.7 g/gl (32-36); Mean Corpuscular Hgb 28.4 pg (27.0-32.0); Mean Corpuscular Volume 89.7 fL (81-99); Mean Platelet Vol. 8.8 fl (6.2-12.0); Monocyte# 1.11 X10^3/uL; Monocyte% 8.8 % (0-10); Neutrophil # 9.95 X10^3/uL (2.7-7.7); Neutrophil % 79.2 % (47-70); Platelet Count 322 K/mm3 (150-450); RBC Distribution Width CV 14.7 % (11.6-14.6); RBC Distribution Width SD 48.3 fl (35.1-43.9); Red Blood Count 4.26 M/mm3 (4.2-5.4); White Blood Count 12.6 K/mm3 (4.4-11.0)
[2017-11-15 05:15] LABS: POSITIVE COUNT NO; POSITIVE DIFFERENTIAL NO; POSITIVE MORPHOLOGY NO
[2017-11-15 05:24] LABS: ALB/GLOB Ratio 0.6 RATIO (0.9-2.4); AST(SGOT) 28 U/L (15-37); Alanine Aminotransfer ALT/SGPT 27 U/L (13-56); Albumin, Serum 2.2 g/dL (3.2-5.0); Alkaline Phosphatase 48 U/L (45-117); Amylase 52 U/L (25-115); Anion Gap 7 (5-15); BUN 12 mg/dL (7-18); BUN/Creat Ratio 13.2 RATIO (10-20); Calcium,Total 8.1 mg/dL (8.5-10.1); Chloride 102 mmol/L (98-107); Creatinine, Serum 0.91 mg/dL (0.55-1.02); EST Glomerular Filtration Rate 63 mL/min (>60); Est Glom Filt Rate - Afr Amer 76 mL/min (>60); Estimated Creatinine Clearance 44.62 ml/min; Glucose 94 mg/dL (74-106); Lipase 149 U/L (73-393); Potassium 4.2 mmol/L (3.5-5.1); Protein, Total 6.2 g/dL (6.4-8.2); Sodium Level 139 mmol/L (136-145)
[2017-11-15] MEDS: Piperacil/Tazobactam 3.375 GM/50 ML ML IV (05:30)
[2017-11-15] MEDS: Acetaminophen 650 MG/20 ML UDC PO (05:32)
[2017-11-15] MEDS: Levothyroxine 112 MCG Tablet PO (05:35)
[2017-11-15] MEDS: 0.9% NaCl Peripheral Flush Adult/Peds IV (05:35)
[2017-11-15] MEDS: Ipratropium/Albuterol Sulfate 3 ML AMPUL.NEB INHALATION ×3 (06:32→19:13)
--- NOTE | 2017-11-15 06:43 | PN_ITS ---
Subjective: Patient did well overnight. Patient did have some desaturation with sleep requiring increase in nasal cannula oxygen. Blood pressures have remained stable. Patient continues to be confused. Rate of A. fib is much better controlled on p.o. metoprolol General: Alert, Cooperative, No apparent distress, - - Speaks in full sentences. HEENT: Atraumatic, PERRLA, EOMI, Normocephalic, - - No scleral icterus or injection noted. Oral: Moist Mucosa, No Gingival or Mucosal Lesions/ Ulcerations Neck: Supple, No JVD, No Nodes, Trachea Midline Lungs: No rhonchi, No wheeze, No rales, Diminished, - - Symmetric expansion. No dullness to percussion. Cardiovascular: Normal S1, Normal S2, No murmurs, Irregular Rate, No rub noted, No Gallop Abdomen: Bowel Sounds Present, Soft, Non Tender, Non-Distended Extremities: No clubbing, No cyanosis, Capillary Refill Less than 3 Seconds, Edema Skin: - - No significant change compared to previous Musculoskeletal: No Tenderness to Palpation of Joints or Extremities, No Muscle Wasting Lymphatic: No Cervical, Supraclavicular, or Inguinal Adenopathy Neurological: Cranial nerves II-XII grossly intact, Neuro grossly intact, Motor Exam 5/5 strength throughout Psych/Mental Status: Impulsive, Restless Vital Signs Temp Pulse Resp BP Pulse Ox 36.3 C L 91 20 H 115/75 99 11/15/17 05:00 11/15/17 06:33 11/15/17 06:33 11/15/17 06:00 11/15/17 06:33 Oxygen Flow Rate (L/min) 2 Oxygen Delivery Method Nasal Cannula Weight: 80.8 kg Body Mass Index (BMI) 27.2 Intake and Output for Last 24 Hours 11/13/17 11/14/17 11/15/17 23:59 23:59 23:59 Intake Total 4060 / 4060 2878.4 / 2878.4 302 / 302 Output Total 275 / 275 700 / 700 1250 / 1250 Balance 3785 / 3785 2178.4 / 2178.4 -948 / -948 Labs (Last 48 Hours) 11/13/17 11/13/17 11/13/17 07:08 08:15 08:15 WBC RBC Hgb Hct MCV MCH MCHC RDW RDW Differential Plt Count MPV Immature Gran % (Auto) Neut % (Auto) Lymph % (Auto) [place] % (Auto) Eos % (Auto) Baso % (Auto) Absolute Neuts (auto) Absolute Lymphs (auto) Total Counted Specimen Type ART Sample Site L Radial pH 7.33 L Bicarbonate Actual 22.5 POC Total CO2 24 Base Excess -3 L O2 Saturation 98 O2 % 50 ABG pCO2 42.9 ABG pO2 123 H Denny Test POS Respiration Rate 14 O2 Delivery Device Vent Minute Volume 6.00 Vent Mode A-C Tidal Volume 450 POC PEEP 5 POC Pressure Suppt Blood Gas Notified Whom ICU MD Blood Gas Notified Time 655 Sodium Potassium Chloride Carbon Dioxide Anion Gap BUN Creatinine Estim Creat Clear Calc Est GFR (MDRD) Af Amer Est GFR (MDRD) Non-Af BUN/Creatinine Ratio Glucose Calcium Total Bilirubin AST ALT Alkaline Phosphatase Total Creatine Kinase 33 Troponin I 0.018 B-Natriuretic Peptide Total Protein Albumin Globulin Albumin/Globulin Ratio Triglycerides 64 Amylase Lipase TSH MRSA (PCR) POC Glucose 11/13/17 11/13/17 11/13/17 08:15 08:55 11:15 WBC RBC Hgb Hct MCV MCH MCHC RDW RDW Differential Plt Count MPV Immature Gran % (Auto) Neut % (Auto) Lymph % (Auto) [place] % (Auto) Eos % (Auto) Baso % (Auto) Absolute Neuts (auto) Absolute Lymphs (auto) Total Counted Specimen Type Sample Site pH Bicarbonate Actual POC Total CO2 Base Excess O2 Saturation O2 % ABG pCO2 ABG pO2 Denny Test Respiration Rate O2 Delivery Device Minute Volume Vent Mode Tidal Volume POC PEEP POC Pressure Suppt Blood Gas Notified Whom Blood Gas Notified Time Sodium Potassium Chloride Carbon Dioxide Anion Gap BUN Creatinine Estim Creat Clear Calc Est GFR (MDRD) Af Amer Est GFR (MDRD) Non-Af BUN/Creatinine Ratio Glucose Calcium Total Bilirubin AST ALT Alkaline Phosphatase Total Creatine Kinase Troponin I < 0.015 B-Natriuretic Peptide Total Protein Albumin Globulin Albumin/Globulin Ratio Triglycerides Amylase Lipase TSH 8.68 H MRSA (PCR) Negative POC Glucose 11/14/17 11/14/17 11/14/17 01:06 04:20 04:20 WBC 12.2 H RBC 4.21 Hgb 12.4 Hct 36.8 L MCV 87.4 MCH 29.5 MCHC 33.7 RDW 14.4 RDW Differential 46.0 H Plt Count 376 MPV 8.6 Immature Gran % (Auto) 0.200 Neut % (Auto) 82.0 H Lymph % (Auto) 10.2 L [place] % (Auto) 5.5 Eos % (Auto) 1.9 Baso % (Auto) 0.2 Absolute Neuts (auto) 10.0 H Absolute Lymphs (auto) 1.24 Total Counted Not Reportable Specimen Type Sample Site pH Bicarbonate Actual POC Total CO2 Base Excess O2 Saturation O2 % ABG pCO2 ABG pO2 Denny Test Respiration Rate O2 Delivery Device Minute Volume Vent Mode Tidal Volume POC PEEP POC Pressure Suppt Blood Gas Notified Whom Blood Gas Notified Time Sodium Potassium Chloride Carbon Dioxide Anion Gap BUN Creatinine Estim Creat Clear Calc Est GFR (MDRD) Af Amer Est GFR (MDRD) Non-Af BUN/Creatinine Ratio Glucose Calcium Total Bilirubin AST ALT Alkaline Phosphatase Total Creatine Kinase Troponin I B-Natriuretic Peptide 122.9 H Total Protein Albumin Globulin Albumin/Globulin Ratio Triglycerides Amylase Lipase TSH MRSA (PCR) POC Glucose 107 11/14/17 11/14/17 11/15/17 04:20 09:36 05:00 WBC 12.6 H RBC 4.26 Hgb 12.1 Hct 38.2 MCV 89.7 MCH 28.4 MCHC 31.7 L RDW 14.7 H RDW Differential 48.3 H Plt Count 322 MPV 8.8 Immature Gran % (Auto) 0.200 Neut % (Auto) 79.2 H Lymph % (Auto) 10.7 L [place] % (Auto) 8.8 Eos % (Auto) 0.9 Baso % (Auto) 0.2 Absolute Neuts (auto) 10.0 H Absolute Lymphs (auto) 1.35 Total Counted Not Reportable Specimen Type ART Sample Site R Radial pH 7.42 Bicarbonate Actual 24.1 POC Total CO2 25 Base Excess 0 O2 Saturation 93 L O2 % 25 ABG pCO2 36.9 ABG pO2 66 L Denny Test POS Respiration Rate O2 Delivery Device Vent Minute Volume Vent Mode CPAP PS Tidal Volume POC PEEP 5 POC Pressure Suppt 5 Blood Gas Notified Whom ICU MD Blood Gas Notified Time 940 Sodium 136 Potassium 3.8 Chloride 100 Carbon Dioxide 26.0 Anion Gap 10 BUN 16 Creatinine 1.17 H Estim Creat Clear Calc 34.70 Est GFR (MDRD) Af Amer 57 L Est GFR (MDRD) Non-Af 47 L BUN/Creatinine Ratio 13.7 Glucose 131 H Calcium 7.9 L Total Bilirubin AST ALT Alkaline Phosphatase Total Creatine Kinase Troponin I B-Natriuretic Peptide Total Protein Albumin Globulin Albumin/Globulin Ratio Triglycerides Amylase Lipase TSH MRSA (PCR) POC Glucose 11/15/17 05:00 WBC RBC Hgb Hct MCV MCH MCHC RDW RDW Differential Plt Count MPV Immature Gran % (Auto) Neut % (Auto) Lymph % (Auto) [place] % (Auto) Eos % (Auto) Baso % (Auto) Absolute Neuts (auto) Absolute Lymphs (auto) Total Counted Specimen Type Sample Site pH Bicarbonate Actual POC Total CO2 Base Excess O2 Saturation O2 % ABG pCO2 ABG pO2 Denny Test Respiration Rate O2 Delivery Device Minute Volume Vent Mode Tidal Volume POC PEEP POC Pressure Suppt Blood Gas Notified Whom Blood Gas Notified Time Sodium 139 Potassium 4.2 Chloride 102 Carbon Dioxide 30.0 Anion Gap 7 BUN 12 Creatinine 0.91 Estim Creat Clear Calc 44.62 Est GFR (MDRD) Af Amer 76 Est GFR (MDRD) Non-Af 63 BUN/Creatinine Ratio 13.2 Glucose 94 Calcium 8.1 L Total Bilirubin 0.50 AST 28 ALT 27 Alkaline Phosphatase 48 Total Creatine Kinase Troponin I B-Natriuretic Peptide Total Protein 6.2 L Albumin 2.2 L Globulin 4.0 Albumin/Globulin Ratio 0.6 L Triglycerides Amylase 52 Lipase 149 TSH MRSA (PCR) POC Glucose Microbiology 11/13/17 09:55 Sputum, Tracheal Aspirate Gram Stain - Final 11/13/17 09:55 Sputum, Tracheal Aspirate Respiratory Culture - Preliminary Alpha hemolytic organism 11/13/17 05:08 Mucosa - Nasopharyngeal Respiratory Panel (PCR) - Final 11/13/17 04:00 Stool C. difficile DNA Amplification - Final 11/13/17 04:00 Urine Catheter - Brennan Legionella Antigen - Final 11/13/17 04:00 Urine Catheter - Brennan Streptococcus pneumoniae Antigen (M - Final Medical Necessity - Tobacco Use Smoking Status: Never smoker Tobacco Use: Non-smoker Assessment/Plan All Active Problems Paroxysmal atrial fibrillation with RVR (Acute) Pneumonia (Acute) Community acquired pneumonia (Acute) Hypoxemia (Acute) Atrial fibrillation with RVR (Acute) CHF (congestive heart failure) (Acute) RECOMMENDATIONS: 1. Okay to transition to p.o. antibiotics from my perspective 2. Continue metoprolol for rate control and anticoagulation 3. Wean oxygen as tolerated 4. Walking oximetry prior to discharge 5. Likely benefit from outpatient polysomnogram if patient is agreeable 6. Okay to leave the intensive care unit from my perspective IMPRESSIONS: 1. Acute hypoxemic and hypercarbic respiratory failure Patient was successfully liberated from the ventilator yesterday. Patient has been doing well. Decreased oxygen saturations overnight likely secondary to uncontrolled sleep apnea, but outpatient polysomnogram would be required for confirmation. Continue with bronchodilator therapy. Patient can likely be transitioned to an oral antibiotic. 2. Paroxysmal atrial fibrillation with rapid ventricular rate Rate much improved at this time. Continue metoprolol as ordered. Continue baseline Eliquis therapy. Cardiology has been consulted to assist with management. 3. Sepsis secondary to presumptive community-acquired pneumonia Continue current supportive measures and antibiotics as ordered. Patient growing alpha hemolytic strep. If no pathogenic organisms noted, transition to p.o. antibiotics to complete a seven-day course. 4. Acute kidney injury RESOLVED > Monitor urine output accordingly. Anticipate improvement with stabilization of hemodynamics. No indication for renal replacement therapy at this time. 5. Questionable heart failure with preserved ejection fraction The patient's last echocardiogram revealed preserved ejection fraction. However, her BNP was elevated, which may be secondary to atrial fibrillation with rapid ventricular rate. A repeat echocardiogram shows EF of 65%, but elevated pulmonary artery pressure of 52 mmHg. 6. Hypertension/hypothyroidism/dementia/history of alcohol abuse Complicates care, management, recovery and prognosis. Continue baseline Synthroid dose. Per the patient's family, she was previously a heavy drinker but has been abstinent from alcohol since January 2017. Electrolyte repletion as indicated. No signs of withdrawal at this time. Code Visit Inpatient E&M: 89634 [facility] Hosp L3
--- NOTE | 2017-11-15 07:58 | PCM.PN.HOSP ---
Patient Problems: Active and Suspected Problems Paroxysmal atrial fibrillation with RVR (Acute) Pneumonia (Acute) Community acquired pneumonia (Acute) Hypoxemia (Acute) Atrial fibrillation with RVR (Acute) CHF (congestive heart failure) (Acute) Subjective: Patient was extubated yesterday. Heart rate is still irregular, A. fib but controlled. No fever. Pulse ox 96% on 2 L, pulse ox dropped during sleep probably sleep apnea. Discussed with the banking services clerk. Discussed with the patient's daughter who is main caregiver. Vitals/I&O's: Vital Signs Temp Pulse Resp BP Pulse Ox 97.3 F L 85 20 H 96/65 93 11/15/17 05:00 11/15/17 07:56 11/15/17 07:00 11/15/17 07:00 11/15/17 07:00 Oxygen Flow Rate (L/min) 2 Oxygen Delivery Method Nasal Cannula Weight: 178 lb 2.136 oz Body Mass Index (BMI) 27.2 Intake and Output for Last 24 Hours 11/13/17 11/14/17 11/15/17 23:59 23:59 23:59 Intake Total 4060 / 4060 2878.4 / 2878.4 302 / 302 Output Total 275 / 275 700 / 700 1250 / 1250 Balance 3785 / 3785 2178.4 / 2178.4 -948 / -948 General: Alert, Oriented x3, Cooperative HEENT: Atraumatic, PERRLA, EOMI, Normocephalic Neck: Supple, No JVD, Negative Carotid Bruits Lungs: Clear to auscultation, No rhonchi, No wheeze, No rales, Diminished Cardiovascular: Normal S1, Normal S2, No murmurs, Irregular Rate Abdomen: Bowel Sounds Present, Soft, Non Tender, Non-Distended Extremities: Capillary Refill Less than 3 Seconds, Edema Skin: No rashes, No breakdown Musculoskeletal: No Tenderness to Palpation of Joints or Extremities Neurological: Cranial nerves II-XII grossly intact Psych/Mental Status: Normal Affect, Appropriate Microbiology Past 72 Hours 11/13/17 09:55 Sputum, Tracheal Aspirate Gram Stain - Final 11/13/17 09:55 Sputum, Tracheal Aspirate Respiratory Culture - Preliminary Alpha hemolytic organism 11/13/17 05:08 Mucosa - Nasopharyngeal Respiratory Panel (PCR) - Final 11/13/17 04:00 Stool C. difficile DNA Amplification - Final 11/13/17 04:00 Urine Catheter - Brennan Legionella Antigen - Final 11/13/17 04:00 Urine Catheter - Brennan Streptococcus pneumoniae Antigen (M - Final Laboratory Results 11/14/17 04:20: B-Natriuretic Peptide 122.9 H 11/14/17 09:36: Specimen Type ART, Sample Site R Radial, pH 7.42, Bicarbonate Actual 24.1, POC Total CO2 25, Base Excess 0, O2 Saturation 93 L, O2 % 25, ABG pCO2 36.9, ABG pO2 66 L, Denny Test POS, O2 Delivery Device Vent, Vent Mode CPAP PS, POC PEEP 5, POC Pressure Suppt 5, Blood Gas Notified Whom ICU MD, Blood Gas Notified Time 940 11/15/17 05:00: WBC 12.6 H, RBC 4.26, Hgb 12.1, Hct 38.2, MCV 89.7, MCH 28.4, MCHC 31.7 L, RDW 14.7 H, RDW Differential 48.3 H, Plt Count 322, MPV 8.8, Immature Gran % (Auto) 0.200, Neut % (Auto) 79.2 H, Lymph % (Auto) 10.7 L, Perkins % (Auto) 8.8, Eos % (Auto) 0.9, Baso % (Auto) 0.2, Absolute Neuts (auto) 10.0 H, Absolute Lymphs (auto) 1.35, Total Counted Not Reportable 11/15/17 05:00: Sodium 139, Potassium 4.2, Chloride 102, Carbon Dioxide 30.0, Anion Gap 7, BUN 12, Creatinine 0.91, Estim Creat Clear Calc 44.62, Est GFR (MDRD) Af Amer 76, Est GFR (MDRD) Non-Af 63, BUN/Creatinine Ratio 13.2, Glucose 94, Calcium 8.1 L, Total Bilirubin 0.50, AST 28, ALT 27, Alkaline Phosphatase 48, Total Protein 6.2 L, Albumin 2.2 L, Globulin 4.0, Albumin/Globulin Ratio 0.6 L, Amylase 52, Lipase 149 Current Medications Acetaminophen (Tylenol Liquid) 650 mg PO Q6H PRN PRN PRN Reason: Mild Pain (scale 0-3)/T>100.7 Last Admin: 09/05/18 05:32 Dose: 650 mg Al Hydroxide/Mg Hydroxide (Mylanta Ii) 30 ml PO Q6H PRN PRN PRN Reason: Gastric burning Last Admin: 11/15/17 00:59 Dose: 30 ml Albuterol Sulfate (Ventolin Aerosols) 2.5 mg INHALATION Q2H PRN PRN PRN Reason: SHORTNESS OF BREATH Albuterol/Ipratropium (Duoneb) 3 ml INHALATION Q6H.RT [facility] Last Admin: 11/15/17 06:32 Dose: 3 ml Apixaban (Eliquis) 5 mg PO BID [facility] Last Admin: 11/14/17 21:01 Dose: 5 mg Calcium/Vitamin D (Os-Alen 500mg + D) 1 tablet PO BID [facility] Last Admin: 11/14/17 21:01 Dose: 1 tablet Donepezil HCl (Aricept) 10 mg PO QHS [facility] Last Admin: 11/14/17 21:01 Dose: 10 mg Famotidine (Pepcid) 20 mg PO BID [facility] Last Admin: 11/14/17 21:01 Dose: 20 mg Folic Acid (Folic Acid) 1 mg PO DAILY@0800 [facility] Stop: 11/16/17 08:01 Last Admin: 11/14/17 13:05 Dose: 1 mg Sodium Chloride () 250 mls @ 15 mls/hr IV .[id number] PRN PRN Reason: SALINE FLUSH Piperacillin Sod/Tazobactam Sod (Zosyn) 3.375 gm in 50 mls @ 12.5 mls/hr IV Q8 [facility] Last Admin: 11/15/17 05:30 Dose: 12.5 mls/hr Latanoprost (Xalatan Opthalmic) 1 drop EACH EYE QHS [facility] Last Admin: 11/14/17 21:02 Dose: 1 drop Levothyroxine Sodium (Synthroid) 112 mcg PO DAILY@0600 [facility] Last Admin: 11/15/17 05:35 Dose: 112 mcg Magnesium Hydroxide (Milk Of Magnesia) 30 ml PO DAILY PRN PRN Reason: Constipation Metoprolol Tartrate (Lopressor (Beta Flory)) 50 mg PO BID [facility] Last Admin: 11/14/17 21:04 Dose: 50 mg Metoprolol Tartrate (Lopressor (Beta Flory)) 5 mg IV Q6H PRN PRN PRN Reason: HR > 100 Multivitamins/Minerals (Multivitamin With Minerals) 1 tablet PO DAILYCM [facility] Nutritional Formula (Lactose Free) (Ensure Enlive) 120 ml PO 4X/DAY [facility] Quetiapine Fumarate (Seroquel) 25 mg PO QHS [facility] Last Admin: 11/14/17 21:01 Dose: 25 mg Sodium Chloride () 5 - 30 ml IV UD PRN PRN Reason: SALINE FLUSH Last Admin: 11/15/17 05:35 Dose: 20 ml Thiamine HCl (Vitamin B1) 100 mg PO BIDCM [facility] Stop: 11/16/17 08:01 Last Admin: 11/14/17 18:33 Dose: 100 mg Timolol Maleate (Timoptic) 1 drop EACH EYE BID [facility] Last Admin: 11/14/17 21:02 Dose: 1 drop Medical Necessity - Tobacco Use Smoking Status: Never smoker Tobacco Use: Non-smoker Assessment/Plan All Active Problems Paroxysmal atrial fibrillation with RVR (Acute) Pneumonia (Acute) Community acquired pneumonia (Acute) Hypoxemia (Acute) Atrial fibrillation with RVR (Acute) CHF (congestive heart failure) (Acute) This 82-year-old female with history of paroxysmal A. fib on Eliquis, hypertension, hypothyroidism, dementia, EtOH use and dependence was admitted with history of progressive worsening of dyspnea for 1 week, orthopnea with cough: 1. Acute hypoxic and hypercarbic combined respiratory failure: Etiology unclear: Currently on IV Zosyn. MRSA nasal screen is negative. The patient was extubated yesterday and currently on oxygen through nasal cannula. The patient is being transferred to PCU. Air Analyst consult and follow-up reviewed. presumed left lung base community Acquired Pneumonia: CXR in the ED w/ opacity consistent with pneumonia in the left lung base with possible associated partial collapse versus pleural effusion contributing to the density, stable moderate elevation of the right diaphragm. On IV antibiotics. Blood cultures have been negative so far. Urinary antigens are negative. C. difficile negative. Respiratory panel negative. Lactic acid normal. 3. Paroxsymal atrial fibrillation w/ RVR: EKG in ED w/ atrial fibrillation w/ RVR. Was given IV Lopressor ?3 in ED and then patient administered lopressor x 3 with no response and thus started on IV Cardizem drip in ED. Patient dropped blood pressure on Cardizem drip and was discontinued. IV amiodarone drip discontinued. On Eliquis. Packaging Line Operator has been consulted. 4. Possible acute on chronic heart failure, HFpEF; probably precipitated by A. fib with RVR: BNP is elevated. Magnesium and phosphorus within normal limit. Repeat echo is pending. Previous echo of January 2017 shows EF 65% with left ventricular systolic function normal. Normal RV size and systolic function. Left atrium mildly enlarged. Right atrium mildly enlarged. Normal mitral valve with mild MR. 1-2+ TR, RVSP 27 mmHg. Hypotension secondary to IV Cardizem drip: Resolved currently blood pressure is recovered. Did not require vasopressor support (5) Hypothyroidism: Continue home synthroid regimen, TSH elevated probably due to euthyroid sick syndrome (6) Insomnia: (7) Dementia without behavioral disturbances w/ Anxiety/Depression: Notable anxiety in the ED. Daughter lives with her, continue home aricept regimen. (8) EtOH Abuse and methamphetamine use: Patient with routine consumption of 3 vodka drinks per day. Will maintain on CIWA protocol, MVI, thiamine and folic acid. Shunt methamphetamine is positive. (9) DVT prophylaxis: SCDs Eliquis. Hospital course, transfer transfer to PCU and discharge plan discussed with the patient's daughter. Microbiology Past 72 Hours 11/13/17 09:55 Sputum, Tracheal Aspirate Gram Stain - Final 11/13/17 09:55 Sputum, Tracheal Aspirate Respiratory Culture - Preliminary Alpha hemolytic organism 11/13/17 05:08 Mucosa - Nasopharyngeal Respiratory Panel (PCR) - Final 11/13/17 04:00 Stool C. difficile DNA Amplification - Final 11/13/17 04:00 Urine Catheter - Brennan Legionella Antigen - Final 11/13/17 04:00 Urine Catheter - Brennan Streptococcus pneumoniae Antigen (M - Final Laboratory Results 11/14/17 04:20: B-Natriuretic Peptide 122.9 H 11/14/17 09:36: Specimen Type ART, Sample Site R Radial, pH 7.42, Bicarbonate Actual 24.1, POC Total CO2 25, Base Excess 0, O2 Saturation 93 L, O2 % 25, ABG pCO2 36.9, ABG pO2 66 L, Denny Test POS, O2 Delivery Device Vent, Vent Mode CPAP PS, POC PEEP 5, POC Pressure Suppt 5, Blood Gas Notified Whom ICU , Blood Gas Notified Time 940 11/15/17 05:00: WBC 12.6 H, RBC 4.26, Hgb 12.1, Hct 38.2, MCV 89.7, MCH 28.4, MCHC 31.7 L, RDW 14.7 H, RDW Differential 48.3 H, Plt Count 322, MPV 8.8, Immature Gran % (Auto) 0.200, Neut % (Auto) 79.2 H, Lymph % (Auto) 10.7 L, Perkins % (Auto) 8.8, Eos % (Auto) 0.9, Baso % (Auto) 0.2, Absolute Neuts (auto) 10.0 H, Absolute Lymphs (auto) 1.35, Total Counted Not Reportable 11/15/17 05:00: Sodium 139, Potassium 4.2, Chloride 102, Carbon Dioxide 30.0, Anion Gap 7, BUN 12, Creatinine 0.91, Estim Creat Clear Calc 44.62, Est GFR (MDRD) Af Amer 76, Est GFR (MDRD) Non-Af 63, BUN/Creatinine Ratio 13.2, Glucose 94, Calcium 8.1 L, Total Bilirubin 0.50, AST 28, ALT 27, Alkaline Phosphatase 48, Total Protein 6.2 L, Albumin 2.2 L, Globulin 4.0, Albumin/Globulin Ratio 0.6 L, Amylase 52, Lipase 149 Code Visit Inpatient E&M: 57566 Subs Hosp L3
[2017-11-15] MEDS: Folic Acid 1 MG Tablet PO (08:20)
[2017-11-15] MEDS: Multivitamins,Ther W-Minerals Tablet 1 TABLET PO (08:20)
[2017-11-15] MEDS: Thiamine Hydrochloride 100 MG Tablet PO ×2 (08:21→18:31)
--- NOTE | 2017-11-15 10:29 | CASEMGMT ---
Copy of POA for Healthcare in [facility], not present. ISHAAN Dominguez, PLAYBACK OPERATOR
[2017-11-15] MEDS: APIXABAN 5 MG TABLET PO ×2 (10:54→20:42)
[2017-11-15] MEDS: Calcium Carb/Vitamin D 1 TABLET Tablet PO ×2 (10:54→20:43)
[2017-11-15] MEDS: Metoprolol Tartrate 50 MG Tablet PO ×2 (10:54→20:42)
[2017-11-15] MEDS: Famotidine 20 MG Tablet PO ×2 (10:54→20:42)
[2017-11-15] MEDS: Timolol 0.5% 5ML OPTH.BTL 1 DRP EACH EYE ×2 (10:55→20:43)
--- NOTE | 2017-11-15 14:39 | CASEMGMT ---
Social Work: Patient's daughter provided this SW both Living Will and DPOAHC. Copies made and put on ICU chart. Originals given back to patient's daughter. ISHAAN Henley
--- NOTE | 2017-11-15 19:53 | CPS ---
patient refused due to sob,
--- NOTE | 2017-11-15 19:54 | CPS ---
patient refused due to sob.
--- NOTE | 2017-11-15 19:54 | CPS ---
patient refused due to sob.
[2017-11-15] MEDS: QUEtiapine 25 MG Tablet PO (20:42)
[2017-11-15] MEDS: Donepezil HCl 10 MG Tablet PO (20:42)
[2017-11-15] MEDS: Latanoprost 0.005% 1 Bottle 1 DRP EACH EYE (20:43)
[2017-11-16] VITALS (19 sets, daily range): BP systolic 140–152; BP diastolic 69–105; PULSE 72–171; RESP 16–20; TEMP 36.5–36.8; O2SAT 88–97
[2017-11-16] MEDS: Ipratropium/Albuterol Sulfate 3 ML AMPUL.NEB INHALATION ×4 (00:11→19:02)
[2017-11-16] MEDS: Levothyroxine 112 MCG Tablet PO (05:01)
[2017-11-16 05:04] LABS: Absolute Lymphocyte Count 1.93 X10^3/ul (0.83-4.51); Absolute Neutrophil Count 8.5 X10^3/uL (2.0-7.7); Basophil# 0.04 X10^3/uL; Basophil% 0.3 % (0-1); Eosinophil# 0.19 X10^3/uL; Eosinophils% 1.6 % (0-5); Hematocrit 39.1 % (37-47); Lymphocyte # 1.93 X10^3/ul (4.0); Lymphocyte % 16.3 % (19-41); Mean Corp Hgb Conc 30.7 g/gl (32-36); Mean Corpuscular Volume 91.1 fL (81-99); Monocyte# 1.17 X10^3/uL; Monocyte% 9.9 % (0-10); Neutrophil # 8.46 X10^3/uL (2.7-7.7); Neutrophil % 71.7 % (47-70); Platelet Count 356 K/mm3 (150-450); RBC Distribution Width CV 14.7 % (11.6-14.6); RBC Distribution Width SD 49.1 fl (35.1-43.9); Red Blood Count 4.29 M/mm3 (4.2-5.4); White Blood Count 11.8 K/mm3 (4.4-11.0)
[2017-11-16 05:29] LABS: POSITIVE COUNT NO; POSITIVE DIFFERENTIAL NO; POSITIVE MORPHOLOGY NO
[2017-11-16] MEDS: Multivitamins,Ther W-Minerals Tablet 1 TABLET PO (09:50)
[2017-11-16] MEDS: Folic Acid 1 MG Tablet PO (09:50)
[2017-11-16] MEDS: APIXABAN 5 MG TABLET PO ×2 (09:50→20:54)
[2017-11-16] MEDS: Thiamine Hydrochloride 100 MG Tablet PO (09:50)
[2017-11-16] MEDS: Calcium Carb/Vitamin D 1 TABLET Tablet PO ×2 (09:51→20:54)
[2017-11-16] MEDS: Metoprolol Tartrate 50 MG Tablet PO ×2 (09:51→20:53)
[2017-11-16] MEDS: Famotidine 20 MG Tablet PO ×2 (09:51→20:54)
[2017-11-16] MEDS: Timolol 0.5% 5ML OPTH.BTL 1 DRP EACH EYE ×2 (09:54→20:54)
--- NOTE | 2017-11-16 11:17 | PCM.DC ---
- Discharge Diagnoses Current Active Problems: Current Active and Chronic Problems PAF (paroxysmal atrial fibrillation) (Chronic) ETOH abuse (Chronic) Chronic back pain (Chronic) Dementia without behavioral disturbance (Chronic) Paroxysmal atrial fibrillation with RVR (Acute) Pneumonia (Acute) Community acquired pneumonia (Acute) Hypoxemia (Acute) Atrial fibrillation with RVR (Acute) CHF (congestive heart failure) (Acute) Allergies/Adverse Reactions: Allergies lisinopril Allergy (Verified 11/12/17 22:18) Unknown losartan [From Cozaar] Allergy (Verified 11/12/17 22:18) Unknown NSAIDS (Non-Steroidal Anti-Inflamma Allergy (Verified 11/12/17 22:18) Unknown Medications to take at Discharge Ergocalciferol [Vitamin D] 50,000 unit PO Q30D 01/16/17 Latanoprost 0.005% [Xalatan Opthalmic] 1 drop EACH EYE QHS 01/16/17 Timolol 0.5% [Timoptic] 1 drop EACH EYE BID 01/16/17 Trazodone HCl 100 mg PO QHS 01/16/17 Apixaban [Eliquis] 5 mg PO BID 11/12/17 Calcium Carbonate/Vitamin D3 [Calcium 600-Vit D3 400 Caplet] 1 each PO BID 11/12/17 Donepezil HCl [Aricept] 10 mg PO QHS 11/12/17 Levothyroxine Sodium 112 mcg PO DAILY 11/12/17 Metoprolol Tartrate [Lopressor (beta za)] 50 mg PO BID 11/12/17 Multivitamin [Multiple Vitamins] 1 each PO DAILY 11/12/17 Vit C/Vit E AC/Lut/Copper/Zinc [Preservision Lutein Softgel] 1 each PO BID 11/12/17 Albuterol Inhaler [Ventolin Hfa] 1 - 2 puff INHALATION Q4H PRN PRN #1 inhaler 11/16/17 Amoxicillin/Potassium Clav [Augmentin 875-125 Tablet] 1 ea PO BID #10 tab 11/16/17 The following prescriptions were given: Albuterol Inhaler [Ventolin Hfa] 1 - 2 puff INHALATION Q4H PRN PRN #1 inhaler PRN Reason: SOB/WHEEZING Amoxicillin/Potassium Clav [Augmentin 875-125 Tablet] 1 ea PO BID #10 tab Primary Care Physician: Will Nagy Chi, MD [Primary Care Provider] - Test Results: Test results from this visit will be discussed in further detail at your follow-up appointment, if applicable.
[2017-11-16] MEDS: 0.9% NaCl Peripheral Flush Adult/Peds IV ×2 (11:38→18:41)
--- NOTE | 2017-11-16 12:14 | PCM.PROGNOTE ---
Patient Problems: Active and Suspected Problems Paroxysmal atrial fibrillation with RVR (Acute) Pneumonia (Acute) Community acquired pneumonia (Acute) Hypoxemia (Acute) Atrial fibrillation with RVR (Acute) CHF (congestive heart failure) (Acute) Subjective: Patient feels subjectively improved compared to previous. Patient does report a large productive cough this morning associated with brushing her teeth. Patient is still on supplemental oxygen to maintain appropriate saturations. No bleeding complications have been reported. - Physical Exam General: Alert, Cooperative, No apparent distress, Disoriented, - - Speaking in full sentences. Hard of hearing. HEENT: Atraumatic, PERRLA, EOMI Oral: Moist Mucosa, No Gingival or Mucosal Lesions/ Ulcerations Neck: Supple, No JVD, No Nodes, Trachea Midline Lungs: No rhonchi, No wheeze, No rales, Diminished, - - Symmetric expansion. No dullness to percussion. Cardiovascular: Regular rate, Regular Rhythm, Normal S1, Normal S2, No murmurs, No rub noted, No Gallop Abdomen: Bowel Sounds Present, Soft, Non Tender, Non-Distended Extremities: No clubbing, No cyanosis, Capillary Refill Less than 3 Seconds, Edema Skin: - - No significant change compared to previous Musculoskeletal: No Tenderness to Palpation of Joints or Extremities Lymphatic: No Cervical, Supraclavicular, or Inguinal Adenopathy Neurological: Cranial nerves II-XII grossly intact, Neuro grossly intact Psych/Mental Status: Anxious, Impulsive Vital Signs Temp Pulse Resp BP Pulse Ox 36.6 C 107 H 18 147/69 H 88 11/16/17 09:03 11/16/17 11:09 11/16/17 09:03 11/16/17 09:03 11/16/17 09:10 Oxygen Flow Rate (L/min) [At 0 REST on Room Air] Oxygen Flow Rate (L/min) 2 Oxygen Delivery Method Nasal Cannula Weight: 80.3 kg Body Mass Index (BMI) 27.2 Intake and Output for Last 24 Hours 11/14/17 11/15/17 11/16/17 23:59 23:59 23:59 Intake Total 2878.4 / 2878.4 1524 / 1524 592 / 592 Output Total 700 / 700 1250 / 1250 Balance 2178.4 / 2178.4 274 / 274 592 / 592 Microbiology Past 72 Hours 11/13/17 09:55 Gram Stain - Final Sputum, Tracheal Aspirate Respiratory Culture - Final 11/13/17 05:08 Respiratory Panel (PCR) - Final Mucosa - Nasopharyngeal Laboratory Tests Past 24 Hrs 11/16/17 04:50 WBC 11.8 H RBC 4.29 Hgb 12.0 Hct 39.1 MCV 91.1 MCH 28.0 MCHC 30.7 L RDW 14.7 H RDW Differential 49.1 H Plt Count 356 MPV 9.0 Immature Gran % (Auto) 0.200 Neut % (Auto) 71.7 H Lymph % (Auto) 16.3 L [place] % (Auto) 9.9 Eos % (Auto) 1.6 Baso % (Auto) 0.3 Absolute Neuts (auto) 8.5 H Absolute Lymphs (auto) 1.93 Total Counted Not Reportable Medical Necessity - Tobacco Use Smoking Status: Never smoker Tobacco Use: Non-smoker Assessment/Plan All Active Problems Paroxysmal atrial fibrillation with RVR (Acute) Pneumonia (Acute) Community acquired pneumonia (Acute) Hypoxemia (Acute) Atrial fibrillation with RVR (Acute) CHF (congestive heart failure) (Acute) RECOMMENDATIONS: 1. Okay to transition to p.o. antibiotics from my perspective 2. Continue metoprolol for rate control and anticoagulation 3. Wean oxygen as tolerated 4. Walking oximetry prior to discharge 5. Likely benefit from outpatient polysomnogram if patient is agreeable 6. Consider room air challenge prior to discharge 7. Okay to discharge from a pulmonary perspective. Outpatient polysomnogram versus nocturnal oxygen IMPRESSIONS: 1. Acute hypoxemic and hypercarbic respiratory failure Patient was successfully liberated from the ventilator the day before yesterday. Patient has been doing well. Decreased oxygen saturations overnight likely secondary to uncontrolled sleep apnea, but outpatient polysomnogram would be required for confirmation. Continue with bronchodilator therapy. Please course of p.o. antibiotics. Consider room air challenge prior to discharge. Outpatient polysomnogram would be appropriate versus nocturnal supplemental oxygen 2. Paroxysmal atrial fibrillation with rapid ventricular rate Rate much improved at this time. Continue metoprolol as ordered. Continue baseline Eliquis therapy. Cardiology has been consulted to assist with management. 3. Sepsis secondary to presumptive community-acquired pneumonia Continue current supportive measures and antibiotics as ordered. Patient growing alpha hemolytic strep. If no pathogenic organisms noted, transition to p.o. antibiotics to complete a seven-day course. 4. Acute kidney injury RESOLVED > Monitor urine output accordingly. Anticipate improvement with stabilization of hemodynamics. No indication for renal replacement therapy at this time. 5. Questionable heart failure with preserved ejection fraction The patient's last echocardiogram revealed preserved ejection fraction. However, her BNP was elevated, which may be secondary to atrial fibrillation with rapid ventricular rate. A repeat echocardiogram shows EF of 65%, but elevated pulmonary artery pressure of 52 mmHg. 6. Hypertension/hypothyroidism/dementia/history of alcohol abuse Complicates care, management, recovery and prognosis. Continue baseline Synthroid dose. Per the patient's family, she was previously a heavy drinker but has been abstinent from alcohol since January 2017. Electrolyte repletion as indicated. No signs of withdrawal at this time. Code Visit Inpatient E&M: 62424 Subs Hosp L2
--- NOTE | 2017-11-16 14:11 | CASEMGMT ---
Per GONZALO Santos, referral to be sent to [facility]. Voicemail left for Erlinda, admissions. Referral sent - facesheet, insurance cards, med list, H&P, Dr. Garcia progress note 11/15, Dr. Duenas progress note 11/16, d/c instructions, OT & PT documentation. Fax confirmation rec'd. Evelin Elizalde LPN Clinical Support
--- NOTE | 2017-11-16 16:48 | CASEMGMT ---
GONZALO spoke with Erlinda at [facility] and they can take patient at d/c. GONZALO told her this would be tomorrow. GONZALO will notify patient's daughter. Plan: [facility] Danielle FRIEND
--- NOTE | 2017-11-16 17:54 | PCM.PN.HOSP ---
Patient Problems: Active and Suspected Problems Paroxysmal atrial fibrillation with RVR (Acute) Pneumonia (Acute) Community acquired pneumonia (Acute) Hypoxemia (Acute) Atrial fibrillation with RVR (Acute) CHF (congestive heart failure) (Acute) Subjective: Patient had large cough with sputum in the morning. On 2 L of oxygen through nasal cannula. Heart rate is still fluctuates from 170-108 per minute. Vitals/I&O's: Vital Signs Temp Pulse Resp BP Pulse Ox 97.7 F L 103 H 20 H 152/88 H 96 11/16/17 14:54 11/16/17 15:20 11/16/17 14:54 11/16/17 14:54 11/16/17 14:54 Oxygen Flow Rate (L/min) [At 0 REST on Room Air] Oxygen Flow Rate (L/min) 2 Oxygen Delivery Method Nasal Cannula Weight: 177 lb 0.499 oz Body Mass Index (BMI) 27.2 Intake and Output for Last 24 Hours 11/14/17 11/15/17 11/16/17 23:59 23:59 23:59 Intake Total 2878.4 / 2878.4 1524 / 1524 592 / 592 Output Total 700 / 700 1250 / 1250 Balance 2178.4 / 2178.4 274 / 274 592 / 592 General: Alert, Oriented x3, Cooperative HEENT: Atraumatic, PERRLA, EOMI, Normocephalic Neck: Supple, No JVD, Negative Carotid Bruits Lungs: Diminished, Rhonchi, Wheezes Cardiovascular: Regular rate, Normal S1, Normal S2, No murmurs, Irregular Rate Abdomen: Bowel Sounds Present, Soft, Non Tender, Non-Distended Extremities: Capillary Refill Less than 3 Seconds, Edema Skin: No rashes, No breakdown Musculoskeletal: No Tenderness to Palpation of Joints or Extremities Neurological: Cranial nerves II-XII grossly intact Psych/Mental Status: Normal Affect, Appropriate Microbiology Past 72 Hours 11/13/17 09:55 Sputum, Tracheal Aspirate Gram Stain - Final 11/13/17 09:55 Sputum, Tracheal Aspirate Respiratory Culture - Final 11/13/17 05:08 Mucosa - Nasopharyngeal Respiratory Panel (PCR) - Final Laboratory Results 11/16/17 04:50: WBC 11.8 H, RBC 4.29, Hgb 12.0, Hct 39.1, MCV 91.1, MCH 28.0, MCHC 30.7 L, RDW 14.7 H, RDW Differential 49.1 H, Plt Count 356, MPV 9.0, Immature Gran % (Auto) 0.200, Neut % (Auto) 71.7 H, Lymph % (Auto) 16.3 L, [place] % (Auto) 9.9, Eos % (Auto) 1.6, Baso % (Auto) 0.3, Absolute Neuts (auto) 8.5 H, Absolute Lymphs (auto) 1.93, Total Counted Not Reportable Current Medications Acetaminophen (Tylenol Liquid) 650 mg PO Q6H PRN PRN PRN Reason: Mild Pain (scale 0-3)/T>100.7 Last Admin: 11/15/17 05:32 Dose: 650 mg Al Hydroxide/Mg Hydroxide (Mylanta Ii) 30 ml PO Q6H PRN PRN PRN Reason: Gastric burning Last Admin: 11/15/17 00:59 Dose: 30 ml Albuterol Sulfate (Ventolin Aerosols) 2.5 mg INHALATION Q2H PRN PRN PRN Reason: SHORTNESS OF BREATH Albuterol/Ipratropium (Duoneb) 3 ml INHALATION Q6H.RT [facility] Last Admin: 11/16/17 13:06 Dose: 3 ml Apixaban (Eliquis) 5 mg PO BID [facility] Last Admin: 11/16/17 09:50 Dose: 5 mg Calcium/Vitamin D (Os-Alen 500mg + D) 1 tablet PO BID [facility] Last Admin: 11/16/17 09:51 Dose: 1 tablet Donepezil HCl (Aricept) 10 mg PO QHS [facility] Last Admin: 11/15/17 20:42 Dose: 10 mg Famotidine (Pepcid) 20 mg PO BID [facility] Last Admin: 11/16/17 09:51 Dose: 20 mg Sodium Chloride () 250 mls @ 15 mls/hr IV .[id number] PRN PRN Reason: SALINE FLUSH Ampicillin Sodium/Sulbactam (Sodium 3 gm/ Sodium Chloride) 112 mls @ 150 mls/hr IV Q6 [facility] Stop: 11/19/17 18:45 Last Admin: 11/16/17 11:37 Dose: 150 mls/hr Latanoprost (Xalatan Opthalmic) 1 drop EACH EYE QHS [facility] Last Admin: 11/15/17 20:43 Dose: 1 drop Levothyroxine Sodium (Synthroid) 112 mcg PO DAILY@0600 [facility] Last Admin: 11/16/17 05:01 Dose: 112 mcg Magnesium Hydroxide (Milk Of Magnesia) 30 ml PO DAILY PRN PRN Reason: Constipation Metoprolol Tartrate (Lopressor (Beta Flory)) 50 mg PO BID [facility] Last Admin: 11/16/17 09:51 Dose: 50 mg Metoprolol Tartrate (Lopressor (Beta Flory)) 5 mg IV Q6H PRN PRN PRN Reason: HR > 100 Multivitamins/Minerals (Multivitamin With Minerals) 1 tablet PO DAILYCM [facility] Last Admin: 11/16/17 09:50 Dose: 1 tablet Nutritional Formula (Lactose Free) (Ensure Enlive) 120 ml PO 4X/DAY [facility] Last Admin: 11/16/17 14:55 Dose: 120 ml Quetiapine Fumarate (Seroquel) 25 mg PO QHS [facility] Last Admin: 11/15/17 20:42 Dose: 25 mg Sodium Chloride () 5 - 30 ml IV UD PRN PRN Reason: SALINE FLUSH Last Admin: 11/16/17 11:38 Dose: 10 ml Timolol Maleate (Timoptic) 1 drop EACH EYE BID [facility] Last Admin: 11/16/17 09:54 Dose: 1 drop Medical Necessity - Tobacco Use Smoking Status: Never smoker Tobacco Use: Non-smoker Assessment/Plan All Active Problems Paroxysmal atrial fibrillation with RVR (Acute) Pneumonia (Acute) Community acquired pneumonia (Acute) Hypoxemia (Acute) Atrial fibrillation with RVR (Acute) CHF (congestive heart failure) (Acute) This 82-year-old female with history of paroxysmal A. fib on Eliquis, hypertension, hypothyroidism, dementia, EtOH use and dependence was admitted with history of progressive worsening of dyspnea for 1 week, orthopnea with cough: 1. Acute hypoxic and hypercarbic combined respiratory failure: Etiology unclear: Currently on IV Zosyn. MRSA nasal screen is negative. The patient was extubated yesterday and currently on oxygen through nasal cannula. The patient is being transferred to PCU. Senior Relationship Manager consult and follow-up reviewed. presumed left lung base community Acquired Pneumonia: CXR in the ED w/ opacity consistent with pneumonia in the left lung base with possible associated partial collapse versus pleural effusion contributing to the density, stable moderate elevation of the right diaphragm. On IV antibiotics. Sputum culture showed no organism. Blood cultures have been negative so far. Urinary antigens are negative. C. difficile negative. Respiratory panel negative. Lactic acid normal. Currently on IV Unasyn 3. Paroxsymal atrial fibrillation w/ RVR: EKG in ED w/ atrial fibrillation w/ RVR. Was given IV Lopressor ?3 in ED and then patient administered lopressor x 3 with no response and thus started on IV Cardizem drip in ED. Patient dropped blood pressure on Cardizem drip and was discontinued. IV amiodarone drip discontinued. On Eliquis. Team Psychologist has been consulted. 4. Possible acute on chronic heart failure, HFpEF; probably precipitated by A. fib with RVR: BNP is elevated. Magnesium and phosphorus within normal limit. Repeat echo is pending. Previous echo of January 2017 shows EF 65% with left ventricular systolic function normal. Normal RV size and systolic function. Left atrium mildly enlarged. Right atrium mildly enlarged. Normal mitral valve with mild MR. 1-2+ TR, RVSP 27 mmHg. Hypotension secondary to IV Cardizem drip: Resolved currently blood pressure is recovered. Did not require vasopressor support (5) Hypothyroidism: Continue home synthroid regimen, TSH elevated probably due to euthyroid sick syndrome (6) Insomnia: (7) Dementia without behavioral disturbances w/ Anxiety/Depression: Notable anxiety in the ED. Daughter lives with her, continue home aricept regimen. (8) EtOH Abuse and methamphetamine use: Patient with routine consumption of 3 vodka drinks per day. Will maintain on CIWA protocol, MVI, thiamine and folic acid. Shunt methamphetamine is positive. (9) DVT prophylaxis: SCDs Eliquis. Hospital course, transfer transfer to PCU and discharge plan discussed with the patient's daughter. I called patient's daughter is power of litigation attorney. She agreed for SNF for about 2 weeks. PT and OT recommends skilled physical occupational therapy. Discussed with the keycase assembler. Precertification applied for SNF placement Microbiology Past 72 Hours 11/13/17 00:15 Blood Culture (Wb) - Anticubital Right Blood Culture - Preliminary No growth in 48 hours. 11/13/17 00:20 Blood Culture (Wb) #2 - Anticubital Left Blood Culture - Preliminary No growth in 48 hours. 11/13/17 09:55 Sputum, Tracheal Aspirate Gram Stain - Final 11/13/17 09:55 Sputum, Tracheal Aspirate Respiratory Culture - Final 11/13/17 05:08 Mucosa - Nasopharyngeal Respiratory Panel (PCR) - Final Laboratory Results 11/16/17 04:50: WBC 11.8 H, RBC 4.29, Hgb 12.0, Hct 39.1, MCV 91.1, MCH 28.0, MCHC 30.7 L, RDW 14.7 H, RDW Differential 49.1 H, Plt Count 356, MPV 9.0, Immature Gran % (Auto) 0.200, Neut % (Auto) 71.7 H, Lymph % (Auto) 16.3 L, [place] % (Auto) 9.9, Eos % (Auto) 1.6, Baso % (Auto) 0.3, Absolute Neuts (auto) 8.5 H, Absolute Lymphs (auto) 1.93, Total Counted Not Reportable Code Visit Inpatient E&M: 24188 Subs Hosp L3
[2017-11-16] MEDS: Donepezil HCl 10 MG Tablet PO (20:53)
[2017-11-16] MEDS: QUEtiapine 25 MG Tablet PO (20:53)
[2017-11-16] MEDS: Latanoprost 0.005% 1 Bottle 1 DRP EACH EYE (20:54)
[2017-11-17] VITALS (10 sets, daily range): BP systolic 140–153; BP diastolic 75–90; PULSE 86–110; RESP 18–20; TEMP 36.4–37.2; O2SAT 95–97
[2017-11-17] MEDS: Levothyroxine 112 MCG Tablet PO (05:39)
[2017-11-17] MEDS: Acetaminophen 650 MG/20 ML UDC PO (05:41)
[2017-11-17] MEDS: Ipratropium/Albuterol Sulfate 3 ML AMPUL.NEB INHALATION ×2 (07:29→13:22)
[2017-11-17] MEDS: Multivitamins,Ther W-Minerals Tablet 1 TABLET PO (09:39)
[2017-11-17] MEDS: APIXABAN 5 MG TABLET PO (09:39)
[2017-11-17] MEDS: Metoprolol Tartrate 50 MG Tablet PO (09:40)
[2017-11-17] MEDS: Famotidine 20 MG Tablet PO (09:40)
[2017-11-17] MEDS: Calcium Carb/Vitamin D 1 TABLET Tablet PO (09:40)
[2017-11-17] MEDS: Timolol 0.5% 5ML OPTH.BTL 1 DRP EACH EYE (09:41)
--- NOTE | 2017-11-17 11:00 | PCM.PROGNOTE ---
Patient Problems: Active and Suspected Problems Paroxysmal atrial fibrillation with RVR (Acute) Pneumonia (Acute) Community acquired pneumonia (Acute) Hypoxemia (Acute) Atrial fibrillation with RVR (Acute) CHF (congestive heart failure) (Acute) Subjective: Patient did well overnight. No acute issues were reported. Patient states she feels subjectively unchanged compared to previous. Patient has remained on 2 L nasal cannula to maintain appropriate saturations. Patient denies any cough. - Physical Exam General: Alert, Cooperative, No apparent distress, - - Speaking in full sentences. HEENT: Atraumatic, PERRLA, EOMI, Normocephalic, - - No scleral icterus or injection noted. Oral: Moist Mucosa, No Gingival or Mucosal Lesions/ Ulcerations Neck: Supple, No JVD, No Nodes, Trachea Midline Lungs: No rhonchi, No rales, Diminished, Wheezes - End expiratory on the right Cardiovascular: Normal S1, Normal S2, No murmurs, No rub noted, No Gallop, Tachycardic Abdomen: Bowel Sounds Present, Soft, Non Tender, Non-Distended, Obese Extremities: No cyanosis, Capillary Refill Less than 3 Seconds, Edema Skin: No rashes, No breakdown Musculoskeletal: No Tenderness to Palpation of Joints or Extremities Lymphatic: No Cervical, Supraclavicular, or Inguinal Adenopathy Neurological: Cranial nerves II-XII grossly intact, Neuro grossly intact, Motor Exam 5/5 strength throughout Psych/Mental Status: Normal Affect, Appropriate Vital Signs Temp Pulse Resp BP Pulse Ox 37.2 C 110 H 19 H 145/76 H 97 11/17/17 09:33 11/17/17 09:40 11/17/17 09:33 11/17/17 09:33 11/17/17 09:33 Oxygen Flow Rate (L/min) [At 0 REST on Room Air] Oxygen Flow Rate (L/min) 2 Oxygen Delivery Method Nasal Cannula Weight: 80.5 kg Body Mass Index (BMI) 27.2 Intake and Output for Last 24 Hours 11/15/17 11/16/17 11/17/17 23:59 23:59 23:59 Intake Total 1524 / 1524 1042 / 1042 488 / 488 Output Total 1250 / 1250 Balance 274 / 274 1042 / 1042 488 / 488 Microbiology Past 72 Hours 11/13/17 09:55 Gram Stain - Final Sputum, Tracheal Aspirate Respiratory Culture - Final Medical Necessity - Tobacco Use Smoking Status: Never smoker Tobacco Use: Non-smoker Assessment/Plan All Active Problems Paroxysmal atrial fibrillation with RVR (Acute) Pneumonia (Acute) Community acquired pneumonia (Acute) Hypoxemia (Acute) Atrial fibrillation with RVR (Acute) CHF (congestive heart failure) (Acute) RECOMMENDATIONS: 1. Transition to p.o. antibiotics and complete course 2. Continue metoprolol for rate control and anticoagulation 3. Wean oxygen as tolerated 4. Walking oximetry prior to discharge 5. Likely benefit from outpatient polysomnogram if patient is agreeable 6. Okay to discharge from a pulmonary perspective. Outpatient polysomnogram versus nocturnal oxygen IMPRESSIONS: 1. Acute hypoxemic and hypercarbic respiratory failure Patient was successfully liberated from the ventilator. Patient has been doing well. Decreased oxygen saturations overnight likely secondary to uncontrolled sleep apnea, but outpatient polysomnogram would be required for confirmation. Continue with bronchodilator therapy. Transition to p.o. antibiotics to complete course. Consider room air challenge prior to discharge. Outpatient polysomnogram would be appropriate versus nocturnal supplemental oxygen. Cannot exclude the need for supplemental oxygen on discharge. 2. Paroxysmal atrial fibrillation with rapid ventricular rate Rate much improved at this time. Continue metoprolol as ordered. Continue baseline Eliquis therapy. Cardiology has been consulted to assist with management. 3. Sepsis secondary to presumptive community-acquired pneumonia Continue current supportive measures and antibiotics as ordered. Patient growing alpha hemolytic strep. If no pathogenic organisms noted, transition to p.o. antibiotics to complete a seven-day course. 4. Acute kidney injury RESOLVED > Monitor urine output accordingly. Anticipate improvement with stabilization of hemodynamics. No indication for renal replacement therapy at this time. 5. Questionable heart failure with preserved ejection fraction The patient's last echocardiogram revealed preserved ejection fraction. However, her BNP was elevated, which may be secondary to atrial fibrillation with rapid ventricular rate. A repeat echocardiogram shows EF of 65%, but elevated pulmonary artery pressure of 52 mmHg. 6. Hypertension/hypothyroidism/dementia/history of alcohol abuse Complicates care, management, recovery and prognosis. Continue baseline Synthroid dose. Per the patient's family, she was previously a heavy drinker but has been abstinent from alcohol since January 2017. Electrolyte repletion as indicated. No signs of withdrawal at this time. Code Visit Inpatient E&M: 56590 Subs Hosp L2
[2017-11-17] MEDS: 0.9% NaCl Peripheral Flush Adult/Peds IV (11:45)
--- NOTE | 2017-11-17 11:49 | PCM.TXEXTCAR ---
- Diet 11/14/17 13:39 Diet: Cardiac/Low Cholesterol Is pt able to select menu?: No - Routine Orders/Code Status Suppository Type: Dulcolax 10mg Suppository Frequency: Daily PRN Routine Lab Work: CBC, BMP - in 1 week - Wound(s) Left forehead Wound Type: Scab LT cheek Wound Type: scab - Therapies Weight Bearing: Weight bearing as tolerated Extremity Affected:: Bilateral Lower Physical Therapy: Eval and Treat Occupational Therapy: Eval and Treat Speech Therapy: Eval and Treat - Allergies/Procedures Done in Hospital Allergies/Adverse Reactions: Allergies lisinopril Allergy (Verified 11/12/17 22:18) Unknown losartan [From Cozaar] Allergy (Verified 11/12/17 22:18) Unknown NSAIDS (Non-Steroidal Anti-Inflamma Allergy (Verified 11/12/17 22:18) Unknown - Type of Care/Length of Stay Estimated LOS: Convalescent Care Less Than 30 days Type of Care Needed: Skilled Rehab Potential: Good Prognosis: Good - Additional Orders/Day of Discharge Day of Discharge: 11/17/17 - Dietary and Speech Recommendations Dietitian Recommendations/Changes: Rec cardiac, low sodium diet. - Follow Up Care Primary Care Physician: Will Nagy Chi, MD [Primary Care Provider] - Please follow up with your Primary Care Physician in: in 2 week Please Follow Up With: Palmer Duenas MD When: in 4-6 weeks Please Follow Up With: Thaddeus Omalley MD When: in 4 weeks for PAfib
--- NOTE | 2017-11-17 11:52 | PCM.DC.SUM ---
Discharge Date and Diagnosis Date of Admission: 11/13/17 Date of Discharge: 11/17/17 - Primary Discharge Diagnosis Active and Suspected Problems 1. Acute hypoxic and hypercarbic combined respiratory failure: Etiology unclear: 2. presumed left lung base community Acquired Pneumonia: 3. Paroxsymal atrial fibrillation w/ RVR: EKG in ED w/ atrial fibrillation w/ RVR. 4. Possible acute on chronic heart failure, HFpEF; probably precipitated by A. fib with RVR: BNP is elevated. Hypotension secondary to IV Cardizem drip: Resolved - Secondary Discharge Diagnosis Chronic Problems PAF (paroxysmal atrial fibrillation) (Chronic) ETOH abuse (Chronic) Chronic back pain (Chronic) Dementia without behavioral disturbance (Chronic) Obesity (BMI 30.0-34.9) (Chronic) Insomnia (Chronic) Hypothyroidism (Chronic) Hypertension (Chronic) Hospital Course and Treatment Summary of Care Provided: [] This 82-year-old female with history of paroxysmal A. fib on Eliquis, hypertension, hypothyroidism, dementia, EtOH use and dependence was admitted with history of progressive worsening of dyspnea for 1 week, orthopnea with cough. The patient was initially admitted in ICU, intubated on ventilator, on IV Zosyn and then later transferred to PCU. Seen and examined today General: Alert, Oriented x3, Cooperative HEENT: Atraumatic, PERRLA, EOMI, Normocephalic Neck: Supple, No JVD, Negative Carotid Bruits Lungs: Diminished, Rhonchi, Wheezes Cardiovascular: Regular rate, Normal S1, Normal S2, No murmurs, Irregular Rate Abdomen: Bowel Sounds Present, Soft, Non Tender, Non-Distended Extremities: Capillary Refill Less than 3 Seconds, Edema Skin: No rashes, No breakdown Musculoskeletal: No Tenderness to Palpation of Joints or Extremities Neurological: Cranial nerves II-XII grossly intact Psych/Mental Status: Normal Affect, Appropriate 1. Acute hypoxic and hypercarbic combined respiratory failure: Etiology unclear: MRSA nasal screen is negative. The patient was extubated yesterday and currently on oxygen through nasal cannula. The patient is being transferred to PCU. Professional Athletes Coach consult and follow-up reviewed. presumed left lung base community Acquired Pneumonia: CXR in the ED w/ opacity consistent with pneumonia in the left lung base with possible associated partial collapse versus pleural effusion contributing to the density, stable moderate elevation of the right diaphragm. On IV antibiotics. Sputum culture showed no organism. Blood cultures have been negative so far. Urinary antigens are negative. C. difficile negative. Respiratory panel negative. Lactic acid normal. Currently on IV Unasyn 3. Paroxsymal atrial fibrillation w/ RVR: EKG in ED w/ atrial fibrillation w/ RVR. Was given IV Lopressor ?3 in ED and then patient administered lopressor x 3 with no response and thus started on IV Cardizem drip in ED. Patient dropped blood pressure on Cardizem drip and was discontinued. IV amiodarone drip discontinued. On Eliquis. Pantograph Machine Set Up Operator consulted. 4. Possible acute on chronic heart failure, HFpEF; probably precipitated by A. fib with RVR: BNP is elevated. Magnesium and phosphorus within normal limit. Repeat echo is pending. Previous echo of January 2017 shows EF 65% with left ventricular systolic function normal. Normal RV size and systolic function. Left atrium mildly enlarged. Right atrium mildly enlarged. Normal mitral valve with mild MR. 1-2+ TR, RVSP 27 mmHg. Hypotension secondary to IV Cardizem drip: Resolved currently blood pressure is recovered. Did not require vasopressor support (5) Hypothyroidism: Continue home synthroid regimen, TSH elevated probably due to euthyroid sick syndrome (6) Insomnia: (7) Dementia without behavioral disturbances w/ Anxiety/Depression: Notable anxiety in the ED. Daughter lives with her, continue home aricept regimen. (8) EtOH Abuse and methamphetamine use: Patient with routine consumption of 3 vodka drinks per day. Will maintain on CIWA protocol, MVI, thiamine and folic acid. Shunt methamphetamine is positive. (9) DVT prophylaxis: SCDs Eliquis. Discharge meds reconciliation was done. Patient is discharged on 4 more days of Augmentin for presumed left lung community acquired pneumonia to SNF. Discharge instructions completed. Discussed with the patient's daughter regarding need of physical therapy, occupational therapy, chest physiotherapy and oxygen support. Total time spent, exact 35 minutes on discharge meds reconciliation, examination, review of imaging and blood test and discussion with the patient on follow-up instructions. Home Medications: Medications to take at Discharge Ergocalciferol [Vitamin D] 50,000 unit PO Q30D 01/16/17 Latanoprost 0.005% [Xalatan Opthalmic] 1 drop EACH EYE QHS 01/16/17 Timolol 0.5% [Timoptic] 1 drop EACH EYE BID 01/16/17 Trazodone HCl 100 mg PO QHS 01/16/17 Apixaban [Eliquis] 5 mg PO BID 11/12/17 Calcium Carbonate/Vitamin D3 [Calcium 600-Vit D3 400 Caplet] 1 each PO BID 11/12/17 Donepezil HCl [Aricept] 10 mg PO QHS 11/12/17 Levothyroxine Sodium 112 mcg PO DAILY 11/12/17 Metoprolol Tartrate [Lopressor (beta za)] 50 mg PO BID 11/12/17 Multivitamin [Multiple Vitamins] 1 each PO DAILY 11/12/17 Vit C/Vit E AC/Lut/Copper/Zinc [Preservision Lutein Softgel] 1 each PO BID 11/12/17 Albuterol Inhaler [Ventolin Hfa] 1 - 2 puff INHALATION Q4H PRN PRN #1 inhaler 11/16/17 Amoxicillin/Potassium Clav [Augmentin 875-125 Tablet] 1 ea PO BID #8 tab 11/17/17 Ipratropium/Albuterol Sulfate [Duoneb] 3 ml INHALATION Q6H PRN PRN ampul.neb 11/17/17 Following Prescrptions Were Given to Patient: Albuterol Inhaler [Ventolin Hfa] 1 - 2 puff INHALATION Q4H PRN PRN #1 inhaler PRN Reason: SOB/WHEEZING Amoxicillin/Potassium Clav [Augmentin 875-125 Tablet] 1 ea PO BID #8 tab Primary Care Physician: Will Nagy Chi, MD [Primary Care Provider] - Please follow up with your Primary Care Physician in: in 2 week Please Follow Up With: Palmer Duenas MD When: in 4-6 weeks Please Follow Up With: Thaddeus Omalley MD When: in 4 weeks for PAfib Medical Necessity - Tobacco Use Smoking Status: Never smoker Tobacco Use: Non-smoker Meaningful Use Info Meaningful Use Diagnoses (Choose all that apply): None applicable Code Visit Inpatient E&M: 67472 Disch Hosp
--- NOTE | 2017-11-17 12:10 | CASEMGMT ---
Patient is ready for discharge to [facility]. GONZALO faxed orders. SW completed convalescent on HENS. Called [facility] and arranged for patient to get picked up 2p via cot. GONZALO notified RN, charge account identification clerk, left a message for Erlinda at [facility], and called patient's daughter with information. All in agreement with d/c plan. Plan: d/c to [facility] under skilled level of care on a convalescent stay. [facility] transported via cot. Danielle SUÁREZ ASSISTANT SALES MANAGER
== END 2017-11-17 14:06 | disposition skilled nursing facility (03) | DRG 308 ==
LOC: ED 11-13 01:34 → PCU 11-13 02:02 → ICU 11-13 02:34 → PCU 11-15 16:55
PROVIDERS: Internal Medicine Cardiovascular Disease; Internal Medicine Critical Care Medicine; Admitting Provider Family Medicine; Emergency Provider Emergency Medicine; Family Provider Family Medicine Geriatric Medicine; PCP Family Medicine Geriatric Medicine; Visit Provider Internal Medicine
DX: I48.0 Paroxysmal atrial fibrillation (principal); J18.9 Pneumonia, unspecified organism; J96.02 Acute respiratory failure with hypercapnia; J96.01 Acute respiratory failure with hypoxia; I50.33 Acute on chronic diastolic (congestive) heart failure; E03.9 Hypothyroidism, unspecified; F03.90 Unspecified dementia, unspecified severity, without behavioral disturbance, psychotic disturbance, mood disturbance, and anxiety; F10.10 Alcohol abuse, uncomplicated; I11.0 Hypertensive heart disease with heart failure; M54.9 Dorsalgia, unspecified; G89.29 Other chronic pain; E66.9 Obesity, unspecified; Z68.27 Body mass index [BMI] 27.0-27.9, adult; G47.00 Insomnia, unspecified; Z79.01 Long term (current) use of anticoagulants; I95.9 Hypotension, unspecified; I95.2 Hypotension due to drugs; T46.1X5A Adverse effect of calcium-channel blockers, initial encounter
CPT/HCPCS: 31500; 31720; 36600; 71045; 80048; 80053; 80307; 80320; 82150; 82550; 82803; 82962; 83605; 83690; 83735; 83880; 84100; 84443; 84478; 84484; 85025; 85610; 85730; 87040; 87070; 87205; 87449; 87493; 87633; 87641; 93005; 93306; 94002; 94003; 94640; 94660; 94667; 94668; 95831; 97110; 97162; 97166; 97530; 97535; 97802; 99251; 99282; J7030; J7040; J7050; J7120; A4216; G0463; G0480; J0295; J2405

== ENCOUNTER → 2017-12-18 10:53 | Outpatient (CLI) | payer MEDICARE, OTHER, SELFPAY ==
[2017-12-18 12:35] LABS: Absolute Neutrophil Count 7.4 X10^3/uL (2.0-7.7); Basophil# 0.05 X10^3/uL; Basophil% 0.5 % (0-1); Eosinophil# 0.07 X10^3/uL; Eosinophils% 0.7 % (0-5); Hematocrit 46.2 % (37-47); Hemoglobin 14.9 g/dl (12.0-15.0); Lymphocyte % 18.6 % (19-41); Mean Corp Hgb Conc 32.3 g/gl (32-36); Mean Corpuscular Hgb 28.9 pg (27.0-32.0); Mean Corpuscular Volume 89.7 fL (81-99); Mean Platelet Vol. 9.6 fl (6.2-12.0); Monocyte# 0.79 X10^3/uL; Monocyte% 7.7 % (0-10); Neutrophil # 7.41 X10^3/uL (2.7-7.7); Neutrophil % 72.3 % (47-70); Platelet Count 371 K/mm3 (150-450); RBC Distribution Width CV 14.6 % (11.6-14.6); RBC Distribution Width SD 47.4 fl (35.1-43.9); Red Blood Count 5.15 M/mm3 (4.2-5.4); White Blood Count 10.2 K/mm3 (4.4-11.0)
[2017-12-18 12:44] LABS: POSITIVE COUNT NO; POSITIVE DIFFERENTIAL NO; POSITIVE MORPHOLOGY NO
[2017-12-18 12:54] LABS: ALB/GLOB Ratio 0.6 RATIO (0.9-2.4); AST(SGOT) 31 U/L (15-37); Alanine Aminotransfer ALT/SGPT 34 U/L (13-56); Albumin, Serum 3.1 g/dL (3.2-5.0); Alkaline Phosphatase 57 U/L (45-117); Anion Gap 8 (5-15); BUN 25 mg/dL (7-18); BUN/Creat Ratio 19.2 RATIO (10-20); Calcium,Total 9.7 mg/dL (8.5-10.1); Chloride 95 mmol/L (98-107); EST Glomerular Filtration Rate 42 mL/min (>60); Est Glom Filt Rate - Afr Amer 50 mL/min (>60); Globulin 5.3 g/dL (2.2-4.2); Glucose 149 mg/dL (74-106); Potassium 4.6 mmol/L (3.5-5.1); Protein, Total 8.4 g/dL (6.4-8.2); Sodium Level 134 mmol/L (136-145); Thyroid Stim Hormone (TSH) 5.01 uIU/mL (0.358-3.74)
== END ==
PROVIDERS: Family Provider Family Medicine Geriatric Medicine; PCP Family Medicine Geriatric Medicine; Visit Provider Family Medicine Geriatric Medicine
DX: I50.33 Acute on chronic diastolic (congestive) heart failure (principal); R53.83 Other fatigue
CPT/HCPCS: 36415; 80053; 84443; 85025

== ENCOUNTER → 2017-12-22 13:36 | Outpatient (CLI) | payer MEDICARE, OTHER, SELFPAY ==
--- NOTE | 2017-12-22 13:37 | STEWCON_ITS ---
Reason For Study: Atrial Fibrillation Stress Results Protocol: Dobutamine Stress Echo Maximum Predicted HR: 138 bpm Target HR: 117 bpm% Maximum Pre dicted HR: 103 % DurationHeart Rate Stage (mm:ss) (bpm) BPCom ment Baseline 121 139/7 8No Chest Pain; Diluted Definity 8 ML Given DSE 10 MCG 3:09 10 2 107/57No Chest Pain DSE 20 MCG 3:10 11 0 138/63No Chest Pain DSE 30 MCG 6:13 14 2 143/70No Chest Pain Recovery 129 104/7 8No Chest Pain Stress Duration: 12:32 mm:ss Maximum Stress HR: 142 bpmME TS: 1 Baseline Echocardiogram Findings The estimated ejection fraction is 65 %. Stress Echo Wall motion Data Resting WMIntermediate WMStress WM Resting Wall Motion Wall Motion Stress No regional wall motion No regional wall motion abnormalities noted. abnormalities noted. EKG Data Atrial fibrillation with RVR. The patient was titrated from 10 mcg to a maximun of 30 mcg of dobutamine during the stress. The maximum heart rate attained was 157 beats per minute. This was 113% of maximum predicted heart rate. During dobutamine infusion, there were no ST or T wave changes noted to suggest ischemia. No clinical angina was noted. Interpretation Summary The estimated ejection fraction is 65 %. Normal, adequate, dobutamine echocardiogram. Negative for ischemia by EKG and echocardiographic criteria. No anginal symptoms noted. Rare PVC noted. Appropriate blood pressure response to dobutamine. Final LVEF is 75%. Test terminated due to target heart rate achieved. Ordering Physician: Thaddeus Omalley Referring Physician: Thaddeus Omalley Performed By: Sarah Mensah, RDCS, RVT
== END ==
PROVIDERS: Family Provider Family Medicine Geriatric Medicine; PCP Family Medicine Geriatric Medicine; Referring Provider Internal Medicine Cardiovascular Disease; Visit Provider Internal Medicine Cardiovascular Disease
DX: I48.0 Paroxysmal atrial fibrillation (principal); R94.31 Abnormal electrocardiogram [ECG] [EKG]
CPT/HCPCS: 93017; 93350; J7030; Q9957; A4216; C8928

== ENCOUNTER → 2018-01-26 10:16 | Outpatient (CLI) | payer MEDICARE, OTHER, SELFPAY ==
[2018-01-26 12:06] LABS: Absolute Lymphocyte Count 2.87 X10^3/ul (0.83-4.51); Absolute Neutrophil Count 5.7 X10^3/uL (2.0-7.7); Basophil# 0.04 X10^3/uL; Basophil% 0.4 % (0-1); Eosinophil# 0.12 X10^3/uL; Eosinophils% 1.2 % (0-5); Hematocrit 49.4 % (37-47); Hemoglobin 15.9 g/dl (12.0-15.0); Lymphocyte # 2.87 X10^3/ul (4.0); Lymphocyte % 29.6 % (19-41); Mean Corp Hgb Conc 32.2 g/gl (32-36); Mean Corpuscular Hgb 28.6 pg (27.0-32.0); Mean Platelet Vol. 9.7 fl (6.2-12.0); Monocyte% 9.3 % (0-10); Neutrophil # 5.74 X10^3/uL (2.7-7.7); Neutrophil % 59.3 % (47-70); Platelet Count 289 K/mm3 (150-450); RBC Distribution Width CV 14.3 % (11.6-14.6); RBC Distribution Width SD 46.7 fl (35.1-43.9); Red Blood Count 5.55 M/mm3 (4.2-5.4); White Blood Count 9.7 K/mm3 (4.4-11.0)
[2018-01-26 12:16] LABS: POSITIVE COUNT NO; POSITIVE DIFFERENTIAL NO; POSITIVE MORPHOLOGY NO
[2018-01-26 12:30] LABS: ALB/GLOB Ratio 0.6 RATIO (0.9-2.4); AST(SGOT) 22 U/L (15-37); Alanine Aminotransfer ALT/SGPT 21 U/L (13-56); Albumin, Serum 3.3 g/dL (3.2-5.0); Alkaline Phosphatase 59 U/L (45-117); Anion Gap 11 (5-15); BUN 19 mg/dL (7-18); BUN/Creat Ratio 17.1 RATIO (10-20); Calcium,Total 9.8 mg/dL (8.5-10.1); Chloride 97 mmol/L (98-107); Creatinine, Serum 1.11 mg/dL (0.55-1.02); EST Glomerular Filtration Rate 50 mL/min (>60); Est Glom Filt Rate - Afr Amer 60 mL/min (>60); Globulin 5.1 g/dL (2.2-4.2); Glucose 91 mg/dL (74-106); Potassium 4.4 mmol/L (3.5-5.1); Protein, Total 8.4 g/dL (6.4-8.2); Sodium Level 136 mmol/L (136-145); Thyroid Stim Hormone (TSH) 3.52 uIU/mL (0.358-3.74)
== END ==
PROVIDERS: Family Provider Family Medicine Geriatric Medicine; PCP Family Medicine Geriatric Medicine; Visit Provider Family Medicine Geriatric Medicine
DX: I10 Essential (primary) hypertension (principal); E55.9 Vitamin D deficiency, unspecified
CPT/HCPCS: 36415; 80053; 82306; 84443; 85025

== ENCOUNTER → 2018-04-27 08:46 | Outpatient (CLI) | payer MEDICARE, OTHER, SELFPAY ==
[2017-12-19 10:56] VITALS: BMI 27.8
[2018-04-27 12:46] LABS: Absolute Lymphocyte Count 2.54 X10^3/ul (0.83-4.51); Absolute Neutrophil Count 7.5 X10^3/uL (2.0-7.7); Basophil# 0.03 X10^3/uL; Basophil% 0.3 % (0-1); Eosinophil# 0.06 X10^3/uL; Eosinophils% 0.6 % (0-5); Hematocrit 50.8 % (37-47); Hemoglobin 16.4 g/dl (12.0-15.0); Lymphocyte # 2.54 X10^3/ul (4.0); Lymphocyte % 23.5 % (19-41); Mean Corp Hgb Conc 32.3 g/gl (32-36); Mean Corpuscular Hgb 29.4 pg (27.0-32.0); Mean Corpuscular Volume 91.2 fL (81-99); Mean Platelet Vol. 9.6 fl (6.2-12.0); Monocyte# 0.65 X10^3/uL; Neutrophil % 69.4 % (47-70); Platelet Count 311 K/mm3 (150-450); RBC Distribution Width CV 13.6 % (11.6-14.6); Red Blood Count 5.57 M/mm3 (4.2-5.4); White Blood Count 10.8 K/mm3 (4.4-11.0)
[2018-04-27 12:47] LABS: POSITIVE COUNT NO; POSITIVE DIFFERENTIAL NO; POSITIVE MORPHOLOGY NO
[2018-04-27 13:01] LABS: Vitamin D,25 Hydroxy 48.9 ng/mL (29.95-100.01)
[2018-04-27 13:19] LABS: ALB/GLOB Ratio 0.7 RATIO (0.9-2.4); AST(SGOT) 26 U/L (15-37); Alanine Aminotransfer ALT/SGPT 25 U/L (13-56); Albumin, Serum 3.7 g/dL (3.2-5.0); Alkaline Phosphatase 61 U/L (45-117); Anion Gap 11 (5-15); BUN 20 mg/dL (7-18); BUN/Creat Ratio 16.9 RATIO (10-20); Calcium,Total 9.8 mg/dL (8.5-10.1); Chloride 94 mmol/L (98-107); Creatinine, Serum 1.18 mg/dL (0.55-1.02); EST Glomerular Filtration Rate 47 mL/min (>60); Est Glom Filt Rate - Afr Amer 56 mL/min (>60); Globulin 5.1 g/dL (2.2-4.2); Glucose 89 mg/dL (74-106); Potassium 4.5 mmol/L (3.5-5.1); Protein, Total 8.8 g/dL (6.4-8.2); Sodium Level 133 mmol/L (136-145); Thyroid Stim Hormone (TSH) 4.45 uIU/mL (0.358-3.74)
== END ==
PROVIDERS: Family Provider Family Medicine Geriatric Medicine; PCP Family Medicine Geriatric Medicine; Visit Provider Family Medicine Geriatric Medicine
DX: I10 Essential (primary) hypertension (principal); E55.9 Vitamin D deficiency, unspecified
CPT/HCPCS: 36415; 80053; 82306; 84443; 85025

== ENCOUNTER → 2018-07-27 12:09 | Outpatient (CLI) | payer MEDICARE, OTHER, SELFPAY ==
[2017-12-19 10:56] VITALS: BMI 27.8
[2018-07-27 13:24] LABS: Absolute Lymphocyte Count 2.69 X10^3/ul (0.83-4.51); Absolute Neutrophil Count 7.1 X10^3/uL (2.0-7.7); Basophil# 0.03 X10^3/uL; Basophil% 0.3 % (0-1); Eosinophil# 0.13 X10^3/uL; Eosinophils% 1.2 % (0-5); Hematocrit 48.8 % (37-47); Hemoglobin 15.9 g/dl (12.0-15.0); Lymphocyte # 2.69 X10^3/ul (4.0); Lymphocyte % 24.8 % (19-41); Mean Corp Hgb Conc 32.6 g/gl (32-36); Mean Corpuscular Hgb 28.9 pg (27.0-32.0); Mean Corpuscular Volume 88.7 fL (81-99); Mean Platelet Vol. 9.7 fl (6.2-12.0); Monocyte# 0.87 X10^3/uL; Neutrophil % 65.4 % (47-70); Platelet Count 320 K/mm3 (150-450); RBC Distribution Width CV 13.7 % (11.6-14.6); RBC Distribution Width SD 44.3 fl (35.1-43.9); White Blood Count 10.9 K/mm3 (4.4-11.0)
[2018-07-27 13:25] LABS: POSITIVE COUNT NO; POSITIVE DIFFERENTIAL NO; POSITIVE MORPHOLOGY NO
[2018-07-27 13:39] LABS: Vitamin D,25 Hydroxy 48.8 ng/mL (29.95-100.01)
[2018-07-27 13:43] LABS: ALB/GLOB Ratio 0.7 RATIO (0.9-2.4); AST(SGOT) 20 U/L (15-37); Alanine Aminotransfer ALT/SGPT 21 U/L (13-56); Albumin, Serum 3.4 g/dL (3.2-5.0); Alkaline Phosphatase 53 U/L (45-117); Anion Gap 8 (5-15); BUN 20 mg/dL (7-18); Calcium,Total 9.7 mg/dL (8.5-10.1); Chloride 96 mmol/L (98-107); Creatinine, Serum 1.25 mg/dL (0.55-1.02); EST Glomerular Filtration Rate 43 mL/min (>60); Est Glom Filt Rate - Afr Amer 53 mL/min (>60); Globulin 4.6 g/dL (2.2-4.2); Glucose 101 mg/dL (74-106); Potassium 4.7 mmol/L (3.5-5.1); Sodium Level 134 mmol/L (136-145); Thyroid Stim Hormone (TSH) 3.57 uIU/mL (0.358-3.74)
== END ==
PROVIDERS: Family Provider Family Medicine Geriatric Medicine; PCP Family Medicine Geriatric Medicine; Visit Provider Family Medicine Geriatric Medicine
DX: I10 Essential (primary) hypertension (principal); E03.9 Hypothyroidism, unspecified; E55.9 Vitamin D deficiency, unspecified
CPT/HCPCS: 36415; 80053; 82306; 84443; 85025

== ENCOUNTER → 2018-10-24 08:51 | Outpatient (CLI) | payer MEDICARE, OTHER, SELFPAY ==
[2017-12-19 10:56] VITALS: BMI 27.8
[2018-10-24 12:47] LABS: Absolute Lymphocyte Count 2.25 X10^3/uL (0.83-4.51); Absolute Neutrophil Count 8.1 X10^3/uL (2.0-7.7); Basophil# 0.06 X10^3/uL; Basophil% 0.5 % (0-1); Eosinophil# 0.09 X10^3/uL; Eosinophils% 0.8 % (0-5); Hematocrit 48.3 % (37-47); Hemoglobin 15.9 g/dL (12.0-15.0); Lymphocyte # 2.25 X10^3/ul (4.0); Lymphocyte % 19.5 % (19-41); Mean Corp Hgb Conc 32.9 g/dL (32-36); Mean Corpuscular Hgb 29.9 pg (27.0-32.0); Mean Corpuscular Volume 90.8 fL (81-99); Mean Platelet Vol. 9.5 fl (6.2-12.0); Monocyte# 0.95 X10^3/uL; Monocyte% 8.3 % (0-10); NRBC Flagged by Analyzer 0 % (0-5); Neutrophil # 8.13 X10^3/uL (2.7-7.7); Neutrophil % 70.6 % (47-70); Platelet Count 286 K/mm3 (150-450); RBC Distribution Width CV 13.1 % (11.6-14.6); RBC Distribution Width SD 43.4 fl (35.1-43.9); Red Blood Count 5.32 M/mm3 (4.2-5.4); White Blood Count 11.5 K/mm3 (4.4-11.0)
[2018-10-24 13:07] LABS: Albumin, Serum 3.2 g/dL (3.2-5.0); BUN 22 mg/dL (7-18); Creatinine, Serum 1.16 mg/dL (0.55-1.02); EST Glomerular Filtration Rate 47 mL/min (>60); Est Glom Filt Rate - Afr Amer 57 mL/min (>60); Glucose 93 mg/dL (74-106); Protein, Total 7.9 g/dL (6.4-8.2)
[2018-10-24 13:08] LABS: ALB/GLOB Ratio 0.7 RATIO (0.9-2.4); AST(SGOT) 31 U/L (15-37); Alanine Aminotransfer ALT/SGPT 32 U/L (13-56); Alkaline Phosphatase 59 U/L (45-117); Anion Gap 8 (5-15); Calcium,Total 9.5 mg/dL (8.5-10.1); Chloride 99 mmol/L (98-107); Globulin 4.7 g/dL (2.2-4.2); Potassium 4.7 mmol/L (3.5-5.1); Sodium Level 136 mmol/L (136-145); Thyroid Stim Hormone (TSH) 3.24 uIU/mL (0.358-3.74)
== END ==
PROVIDERS: Family Provider Family Medicine Geriatric Medicine; PCP Family Medicine Geriatric Medicine; Visit Provider Family Medicine Geriatric Medicine
DX: I10 Essential (primary) hypertension (principal); E55.9 Vitamin D deficiency, unspecified
CPT/HCPCS: 36415; 80053; 82306; 84443; 85025

== ENCOUNTER → 2019-01-16 13:02 | Outpatient (CLI) | payer MEDICARE, OTHER, SELFPAY ==
[2019-01-16 13:52] LABS: Albumin, Serum 3.4 g/dL (3.2-5.0); BUN 26 mg/dL (7-18); BUN/Creat Ratio 21.7 RATIO (10-20); Calcium,Total 9.8 mg/dL (8.5-10.1); Chloride 97 mmol/L (98-107); EST Glomerular Filtration Rate 46 mL/min (>60); Est Glom Filt Rate - Afr Amer 55 mL/min (>60); Glucose 96 mg/dL (74-106); Phosphorus 3.3 mg/dL (2.5-4.9); Potassium 5.3 mmol/L (3.5-5.1); Rheumatoid Factor < 10.0 IU/mL (<15); Sodium Level 138 mmol/L (136-145)
--- NOTE | 2019-01-16 15:15 | US_ITS ---
STUDY: RENAL ULTRASOUND - COMPLETE REASON FOR EXAM: Female, 84 years old. Chronic kidney disease stage III. TECHNIQUE: Ultrasound evaluation of the kidneys was performed with real-time and static connell-scale imaging. COMPARISON: None. FINDINGS: RIGHT KIDNEY: Normal location of the right kidney, which is normal in size. The right kidney measures 8.6 x 4.5 x 5.9 cm. There is a normal cortex of the right kidney. The renal cortex measures 1.9 cm. Abundant peripelvic fat. There are no right renal calculi. There is no right hydronephrosis. DISTAL RIGHT URETER: There is non-visualization of the distal right ureter. There is a visualized right ureteral jet. LEFT KIDNEY: Normal location of the left kidney, which is normal in size. The left kidney measures 9.3 x 4.4 x 5.0 cm. There is a normal cortex of the left kidney. The renal cortex measures 1.3 cm. Abundance of peripelvic fat. There are no left renal calculi. There is no left hydronephrosis. DISTAL LEFT URETER: There is non-visualization of the distal left ureter. There is a visualized left ureteral jet. BLADDER: The nondistended urinary bladder has a volume of 54 ml. There is a normal wall thickness of the distended urinary bladder. There is no demonstrated mass within the urinary bladder. There are no demonstrated bladder calculi. US/Kidney and Bladder IMPRESSION: Bilateral mild renal atrophy without hydronephrosis. Abundance of bilateral pararenal fat. Unremarkable nondistended urinary bladder. Ureteral jets are present bilaterally. Electronically Signed: Crissy Kirkland MD at 19:59 EST , Service support ,
[2019-01-18 16:30] LABS: ANTINUCLEAR ANTIBODIES DIRECT Negative (Negative)
== END ==
PROVIDERS: Family Provider Family Medicine Geriatric Medicine; PCP Family Medicine Geriatric Medicine; Referring Provider Internal Medicine Nephrology; Visit Provider Internal Medicine Nephrology
DX: N17.9 Acute kidney failure, unspecified (principal); N18.3 Chronic kidney disease, stage 3 (moderate); R31.9 Hematuria, unspecified; R80.9 Proteinuria, unspecified
CPT/HCPCS: 36415; 76770; 80069; 86038; 86431

== ENCOUNTER → 2019-01-21 12:04 | Outpatient (CLI) | payer MEDICARE, OTHER, SELFPAY ==
[2017-12-19 10:56] VITALS: BMI 27.8
[2019-01-21 12:44] LABS: Protein, Urine (Random) 53.6 mg/dL (<11.9); Protein:Creat Ratio 391 mg/g CRE (0-200)
== END ==
PROVIDERS: Family Provider Family Medicine Geriatric Medicine; PCP Family Medicine Geriatric Medicine; Visit Provider Internal Medicine Nephrology
DX: N17.9 Acute kidney failure, unspecified (principal); R31.9 Hematuria, unspecified; R80.9 Proteinuria, unspecified
CPT/HCPCS: 82570; 84156

== ENCOUNTER → 2019-02-04 11:42 | Outpatient (CLI) | payer MEDICARE, OTHER, SELFPAY ==
[2017-12-19 10:56] VITALS: BMI 27.8
[2019-02-04 12:23] LABS: Absolute Neutrophil Count 8.1 X10^3/uL (2.0-7.7); Basophil# 0.07 X10^3/uL; Basophil% 0.6 % (0-1); Eosinophils% 0.9 % (0-5); Hematocrit 50.7 % (37-47); Hemoglobin 16.1 g/dL (12.0-15.0); Lymphocyte % 18.4 % (19-41); Mean Corp Hgb Conc 31.8 g/dL (32-36); Mean Corpuscular Hgb 29.1 pg (27.0-32.0); Mean Corpuscular Volume 91.7 fL (81-99); Mean Platelet Vol. 9.6 fl (6.2-12.0); Monocyte# 0.99 X10^3/uL; Monocyte% 8.7 % (0-10); NRBC Flagged by Analyzer 0 % (0-5); Platelet Count 290 K/mm3 (150-450); RBC Distribution Width CV 13.6 % (11.6-14.6); RBC Distribution Width SD 45.8 fl (35.1-43.9); Red Blood Count 5.53 M/mm3 (4.2-5.4); White Blood Count 11.4 K/mm3 (4.4-11.0)
[2019-02-04 12:38] LABS: Vitamin D,25 Hydroxy 59.2 ng/mL (29.95-100.01)
[2019-02-04 12:59] LABS: ALB/GLOB Ratio 0.7 RATIO (0.9-2.4); AST(SGOT) 27 U/L (15-37); Alanine Aminotransfer ALT/SGPT 31 U/L (13-56); Albumin, Serum 3.4 g/dL (3.2-5.0); Alkaline Phosphatase 60 U/L (45-117); Anion Gap 6 (5-15); BUN 16 mg/dL (7-18); BUN/Creat Ratio 13.7 RATIO (10-20); Calcium,Total 9.7 mg/dL (8.5-10.1); Chloride 100 mmol/L (98-107); Creatinine, Serum 1.17 mg/dL (0.55-1.02); EST Glomerular Filtration Rate 47 mL/min (>60); Est Glom Filt Rate - Afr Amer 57 mL/min (>60); Globulin 4.6 g/dL (2.2-4.2); Glucose 103 mg/dL (74-106); Potassium 4.9 mmol/L (3.5-5.1); Sodium Level 134 mmol/L (136-145); Thyroid Stim Hormone (TSH) 4.22 uIU/mL (0.358-3.74)
== END ==
PROVIDERS: Family Provider Family Medicine Geriatric Medicine; PCP Family Medicine Geriatric Medicine; Visit Provider Family Medicine Geriatric Medicine
DX: I10 Essential (primary) hypertension (principal); E55.9 Vitamin D deficiency, unspecified
CPT/HCPCS: 36415; 80053; 82306; 84443; 85025

== ENCOUNTER 2019-06-30 14:01 | Inpatient (IN) | payer MEDICARE, OTHER, SELFPAY ==
[2019-06-30] VITALS (28 sets, daily range): BP systolic 90–170; BP diastolic 49–141; PULSE 100–150; RESP 18–30; TEMP 36.3–37.1; O2SAT 90–99; BMI 34.2; BMI 33.0
--- NOTE | 2019-06-30 14:22 | EKG12_ITS ---
Test Reason : PALPITATIONS Blood Pressure : / mmHG Vent. Rate : 148 BPM Atrial Rate : 182 BPM P-R Int : 000 ms QRS Dur : 074 ms QT Int : 282 ms P-R-T Axes : 000 041 118 degrees QTc Int : 442 ms Atrial fibrillation with rapid ventricular response Nonspecific ST and T wave abnormality Abnormal ECG Confirmed by YOLANDA FORD, RSOA ([id number]), graphic editor ALYCE RODRIGUEZ ([id number] on 07/03/2019 9:30:02 AM Referred By: TITO/MAHOGANY Confirmed By:ROSA GUERRERO MD
--- NOTE | 2019-06-30 14:22 | RAD_ITS ---
STUDY: X-RAY CHEST REASON FOR EXAM: Female, 84 years old. DYSPNEA TECHNIQUE: Single AP portable view of the chest. COMPARISON: November 14, 2017 chest x-ray FINDINGS: The lungs are underexpanded there is elevation of the right greater the left hemidiaphragm similar to prior study. There is obscuration of the lung bases. There is mild cardiac enlargement. Normal mediastinum and piedad. Normal visualized pulmonary arteries. Normal visualized aortic arch and descending thoracic aorta. Normal visualized thoracic spine. Normal visualized ribs, clavicles, and shoulders. There is no demonstrated abnormality of the visualized soft tissue structures of the upper abdomen. RAD/Chest 1 View (Portable) IMPRESSION: Stable chest. Underexpansion of the lungs. Electronically Signed: Suzi Deshpande MD at 15:35 EDT Tel , Service support ,
--- NOTE | 2019-06-30 14:23 | ED.DCSUM_ITS ---
- ER Visit Summary Date of Service: 06/30/19 Chief Complaint: [Shortness of breath and generalized weakness] History of Present Illness: The patient is a 84 F [presents the emergency department with symptoms that started last evening. Patient states that this morning she was just so weak she can barely get around. She is having some mild chest heaviness. She currently does not feel like her heart is racing. Patient has not had any recent illness. She denies any fever. Patient also states that her legs have been swollen this morning. Patient has history of CHF, hypertension, paroxysmal A. fib, dementia, and hypothyroidism. Patient has been taking her medications regularly although she states she did not take them this morning.] Physical Examination: HEENT-PERRLA, EOMI. Cranial nerves II through XII grossly intact. TMs clear. Mucous membranes moist. No adenopathy. Cardiovascular-irregularly irregular and tachycardic with no murmurs auscultated. Lungs-patient has few rales noted in the bases. Mild tachypnea. No accessory muscle use or retractions. Abdomen-normoactive bowel sounds, soft, nontender, no rebound or rigidity, no peritoneal signs. Extremities-intact ?4, normal range of motion, normal pulses, atraumatic [. Patient has +2 edema both lower extremities from below the knee to the feet.] Test Results: [EKG obtained arrival showed a atrial fibrillation with a rapid ventricular response with a rate of 148 bpm with some nonspecific ST changes.] Emergency Department Course and Treatment: [Patient had an IV line established. Patient placed on ekg monitor tech. Patient was ordered Cardizem 20 mg IV bolus. Heart rate improved into the low 100s and she was ordered another 25 mg IV IV Cardizem. Patient was ordered Lasix 40 mg IV. Etiology of leukocytosis is not clear therefore urinalysis was ordered and blood cultures. Case discussed with hospitalist will evaluate patient for admission] Treatment Plan: [Admit] Disposition: [Admit] Impression: [A. fib RVR Hypoxemia CHF Leukocytosis] This note was generated with [employer] software. It may contain incorrect words, spelling, and punctuation that were not noted in review of the chart prior to signing ED Disposition - Plan for ED Patient: Referrals: Will Nagy Chi, MD [Primary Care Provider] -
[2019-06-30 14:30] LABS: Absolute Lymphocyte Count 2.67 X10^3/uL (0.83-4.51); Absolute Neutrophil Count 17.8 X10^3/uL (2.0-7.7); Basophil# 0.05 X10^3/uL; Basophil% 0.2 % (0-1); Eosinophil# 0.08 X10^3/uL; Eosinophils% 0.4 % (0-5); Hematocrit 45.6 % (37-47); Hemoglobin 13.7 g/dL (12.0-15.0); Lymphocyte # 2.67 X10^3/ul (4.0); Lymphocyte % 11.8 % (19-41); Mean Corpuscular Hgb 29.2 pg (27.0-32.0); Mean Corpuscular Volume 97.2 fL (81-99); Mean Platelet Vol. 9.1 fl (6.2-12.0); Monocyte# 1.76 X10^3/uL; Monocyte% 7.8 % (0-10); NRBC Flagged by Analyzer 0.1 % (0-5); Neutrophil # 17.84 X10^3/uL (2.7-7.7); POSITIVE DIFFERENTIAL YES; Platelet Count 398 K/mm3 (150-450); RBC Distribution Width CV 15.6 % (11.6-14.6); RBC Distribution Width SD 54.1 fl (35.1-43.9); Red Blood Count 4.69 M/mm3 (4.2-5.4); White Blood Count 22.6 K/mm3 (4.4-11.0)
[2019-06-30] MEDS: dilTIAZem 25 MG/5 ML Vial 20 MG IV BOLUS (14:45)
[2019-06-30 14:48] LABS: Differential Indicated SCAN CRITERIA MET
[2019-06-30 15:08] LABS: Anion Gap 6 (5-15); BUN 26 mg/dL (7-18); BUN/Creat Ratio 28.5 RATIO (10-20); Calcium,Total 9.1 mg/dL (8.5-10.1); Chloride 97 mmol/L (98-107); Creatinine, Serum 0.91 mg/dL (0.55-1.02); EST Glomerular Filtration Rate 62 mL/min (>60); Est Glom Filt Rate - Afr Amer 76 mL/min (>60); Estimated Creatinine Clearance 39.74 ml/min; Glucose 116 mg/dL (74-106); Potassium 3.8 mmol/L (3.5-5.1); Sodium Level 138 mmol/L (136-145)
[2019-06-30 15:14] LABS: BNP,B-Type NATRIURETIC PEPTIDE 297.8 pg/mL (0-100)
[2019-06-30] MEDS: dilTIAZem 25 MG/5 ML Vial IV BOLUS (15:28)
[2019-06-30] MEDS: Furosemide 40 MG/4 ML Vial IV (15:28)
[2019-06-30 15:35] LABS: Anisocytosis 1+; Platelet Estimate ADEQUATE (ADEQ)
--- NOTE | 2019-06-30 15:55 | PCM.HP.STD ---
<Abdiel Hall - Last Filed: 06/30/19 15:55> Problem List (1) CHF (congestive heart failure) Status: Acute Qualifiers: Heart failure type: diastolic (2) Paroxysmal atrial fibrillation with RVR Status: Acute (3) Dementia without behavioral disturbance Status: Chronic (4) Obesity (BMI 30.0-34.9) Status: Chronic (5) Hypothyroidism Status: Chronic (6) Hypertension Status: Chronic History of Present Illness Date of Admission: 06/30/19 Chief Complaint: SOB The patient is a 84 year old F with a Pmhx of pAfib, diastolic CHF, pulmonary HTN, HTN, hypothyroidism, and dementia who presented to the ER with c/o SOB. She has progressively worsened over the past 2 days. She has had markedly increased LE edema. She does not normally use lasix at home. She is SOB at rest and worse with exertion. She was 88 % on RA in the ER initially. She also reports PND and orthopnea. She is unsure what her baseline weight is. No CP, pressure tightness, heaviness. No palpitations. In the ER she appears to have CHF and Afib with RVR with initial EKG showing a rate in the 140's that has since improved to the 110s on cardizem. She denies recent illness or infection and denies cough, fever, chills, nausea/vomting/diarrhea, or dysuria. [] Past Medical History Past Medical History (Chronic Problems): Chronic Problems (Last Reviewed 12/19/17 @ 10:55 by Nancy Han) Chronic diastolic CHF (congestive heart failure) (Chronic) Obesity (BMI 30.0-34.9) (Chronic) PAF (paroxysmal atrial fibrillation) (Chronic) ETOH abuse (Chronic) Chronic back pain (Chronic) Dementia without behavioral disturbance (Chronic) Insomnia (Chronic) Hypothyroidism (Chronic) Hypertension (Chronic) Medical History: Medical History (Last Reviewed 12/19/17 @ 10:55 by Nancy Han) PAF (paroxysmal atrial fibrillation) (Chronic) I48.0 ETOH abuse (Chronic) F10.10 Chronic back pain (Chronic) M54.9, G89.29 Dementia without behavioral disturbance (Chronic) F03.90 Pneumonia (Acute) J18.9 Hypoxemia (Acute) R09.02 Atrial fibrillation with RVR (Acute) I48.91 CHF (congestive heart failure) (Acute) I50.9 Insomnia (Chronic) G47.00 Hypothyroidism (Chronic) E03.9 Hypertension (Chronic) I10 Allergies lisinopril Allergy (Verified 06/30/19 14:22) Unknown losartan [From Cozaar] Allergy (Verified 06/30/19 14:22) Unknown NSAIDS (Non-Steroidal Anti-Inflamma Allergy (Verified 06/30/19 14:22) Unknown Home Medications: Ambulatory Orders Medication Instructions Recorded Ergocalciferol [Vitamin D] 50,000 unit PO Q30D 01/16/17 Latanoprost 0.005% [Xalatan 1 drp EACH EYE QHS 01/16/17 Opthalmic] Timolol 0.5% [Timoptic] 1 drp EACH EYE BID 01/16/17 Apixaban [Eliquis] 5 mg PO BID 11/12/17 Calcium Carbonate/Vitamin D3 1 ea PO BID 11/12/17 [Calcium 600-Vit D3 400 Caplet] Donepezil HCl [Aricept] 10 mg PO QHS 11/12/17 Multivitamin [Multiple Vitamins] 1 ea PO DAILY 11/12/17 metoprolol tartrate 50 mg tablet 50 mg PO BID 12/19/17 Levothyroxine [Synthroid] 137 mcg PO DAILY 06/30/19 Mirtazapine [Remeron] 15 mg PO DAILY 06/30/19 Surgical History: Surgical History (Last Reviewed 12/19/17 @ 10:55 by Nancy Han) History of tonsillectomy Z90.89 History of total abdominal hysterectomy Z90.710 Surgical History: adenoidectomy, hysterectomy, tonsillectomy Psychiatric History: Anxiety, Depression [employer] History: No pertinent [employer] history Lives: With Family - daughter Smoking Status: Never smoker Tobacco Use: Non-smoker Alcohol: Sober Drugs: None - *Family History Maternal Family History: Family History (Last Reviewed 12/19/17 @ 10:55 by Nancy Han) Unknown No problems noted. History Items: No pertinent history - denies heart dz, diabetes, cancer, stroke. of old age. Paternal Family History: Family History (Last Reviewed 12/19/17 @ 10:55 by Nancy Han) Unknown No problems noted. History Items: Hypertension, No pertinent history - denies heart dz, diabetes, cancer, stroke. of old age. Review of Systems Constitutional: Denies: Chills, Fever, Weight Change HEENT: Denies: Head Aches, Sinus Congestion, Sinus Drainage Cardiovascular: Reports: Edema, Orthopnea, Paroxysmal Noc. Dyspnea. Denies: Chest Pain, Chest Pressure, Chest Tightness, Heaviness, Light Headedness, Palpitations, Syncope Respiratory: Reports: Shortness of Breath, Shortness of breath at rest, Shortness of breath upon exertion. Denies: Cough, Sputum production, Wheezing Gastrointestinal: Denies: Abdominal Pain, Diarrhea, Nausea, Vomiting Genitourinary: Denies: Dysuria Musculoskeletal: Denies: Joint Pain, Joint Tenderness Skin: Denies: Rash, Wounds Neurological: Denies: Numbness, Tingling, Focal weakness Psychiatric: Denies: Anxiety, Depression, Homicidal Ideations, Suicidal Ideations Hematologic/ Lymphatic: Denies: Easy Bruising, Easy Bleeding VTE Information - Inpt Only VTE Present on Admission: No VTE Mechan Device Prophylaxis: None VTE Pharm Prophylaxis ordered?: Yes Patient Problems: Active and Suspected Problems (Last Updated 06/30/19 @ 16:[address] Dixie Hardy MD) Atrial fibrillation with RVR (Acute) Acute on chronic diastolic CHF (congestive heart failure) (Acute) - Physical Exam Vitals/I&O's: Vital Signs Temp Pulse Resp BP Pulse Ox 97.5 F L 129 H 18 156/91 H 95 06/30/19 14:39 06/30/19 15:30 06/30/19 15:30 06/30/19 15:30 06/30/19 15:30 Oxygen Flow Rate (L/min) 3 Oxygen Delivery Method Nasal Cannula Weight: 199 lb 4.766 oz Body Mass Index (BMI) 34.2 General: Alert, Oriented x3, Cooperative HEENT: Atraumatic, PERRLA, EOMI, Normocephalic Neck: Supple, No JVD, Negative Carotid Bruits Lungs: Diminished, Rales - BL bases Cardiovascular: No murmurs, Irregular Rate, Tachycardic Abdomen: Bowel Sounds Present, Soft, Non Tender Extremities: Capillary Refill Less than 3 Seconds, Edema - 3+ pitting edema BLE Skin: No rashes, No breakdown Musculoskeletal: No Tenderness to Palpation of Joints or Extremities Neurological: Cranial nerves II-XII grossly intact Psych/Mental Status: Normal Affect, Appropriate, Alert and oriented to time, place, person, mood and affect Laboratory Results 06/30/19 14:15: WBC 22.6 H, RBC 4.69, Hgb 13.7, Hct 45.6, MCV 97.2, MCH 29.2, MCHC 30.0 L, RDW Std Deviation 54.1 H, RDW Coeff of Colt 15.6 H, Plt Count 398, MPV 9.1, Immature Gran % (Auto) 0.800, Neut % (Auto) 79.0 H, Lymph % (Auto) 11.8 L, [place] % (Auto) 7.8, Eos % (Auto) 0.4, Baso % (Auto) 0.2, Absolute Neuts (auto) 17.8 H, Absolute Lymphs (auto) 2.67, Nucleated RBC % 0.1, Differential Comment COMMENT, Diff Path Review July, Platelet Estimate ADEQUATE, Anisocytosis 1+ 06/30/19 14:15: Sodium 138, Potassium 3.8, Chloride 97 L, Carbon Dioxide 35.0 H, Anion Gap 6, BUN 26 H, Creatinine 0.91, Estim Creat Clear Calc 39.74, Est GFR (MDRD) Af Amer 76, Est GFR (MDRD) Non-Af 62, BUN/Creatinine Ratio 28.5 H, Glucose 116 H, Calcium 9.1, Troponin I < 0.015 06/30/19 14:15: B-Natriuretic Peptide 297.8 H Assessment/Plan All Active Problems (Last Updated 06/30/19 @ 16:[address] Dixie Hardy MD) Atrial fibrillation with RVR (Acute) Acute on chronic diastolic CHF (congestive heart failure) (Acute) 1. Acute on chronic diastolic CHF exacerbation - pt not on home lasix. Start IV lasix 40 BID. Allergic to GARY and ARB. Trend I/O. Fluid restrict to 1500, Sodium restrict. Add GARY wraps to BL LE. Daily weights. Pt unsure of baseline weight. Check TSH. Trop neg, BNP 297. CO2 35.0. -Patient had a stress echo December 2017 which showed an EF of 65%, she was in A. fib at that time, had no evidence of acute ischemia at that time. -Repeat echocardiogram. -Patient had a 2D echo 11/2017 which demonstrated pulmonary hypertension as well-RVSP 52 mmHg. 2. Afib with RVR - improving after two IV cardizem bolus' in the ER. Will continue metoprolol. will start cardizem drip if uncontrolled. Continue Eliquis. 3. Hypothyroidism - check TSH. Continue synthroid. 4. Leukocytosis - unclear etiology. pt not reporting any symptoms consistent with acute infectious. Check UA. Afebrile. 5. Dementia - continue aricept. lives with daughter. DVT ppx: eliquis This patient was seen by Abdiel Hall PA-C under the supervision of Dr. Hardy <Dixie Hardy E - Last Filed: 06/30/19 16:18> History of Present Illness The patient is a 84 year old F [] Past Medical History Medical History: Medical History (Last Reviewed 12/19/17 @ 10:55 by Nancy Han) ETOH abuse (Chronic) F10.10 Chronic back pain (Chronic) M54.9, G89.29 Dementia without behavioral disturbance (Chronic) F03.90 Insomnia (Chronic) G47.00 Hypothyroidism (Chronic) E03.9 Hypertension (Chronic) I10 Allergies lisinopril Allergy (Verified 06/30/19 14:22) Unknown losartan [From Cozaar] Allergy (Verified 06/30/19 14:22) Unknown NSAIDS (Non-Steroidal Anti-Inflamma Allergy (Verified 06/30/19 14:22) Unknown Surgical History: Surgical History (Last Reviewed 12/19/17 @ 10:55 by Nancy Han) History of tonsillectomy Z90.89 History of total abdominal hysterectomy Z90.710 - *Family History Maternal Family History: Family History (Last Reviewed 12/19/17 @ 10:55 by Nancy Han) Unknown No problems noted. Paternal Family History: Family History (Last Reviewed 12/19/17 @ 10:55 by Nancy Han) Unknown No problems noted. - Physical Exam Vitals/I&O's: Vital Signs Temp Pulse Resp BP Pulse Ox 97.5 F L 129 H 18 156/91 H 95 06/30/19 14:39 06/30/19 15:30 06/30/19 15:30 06/30/19 15:30 06/30/19 15:30 Oxygen Flow Rate (L/min) 3 Oxygen Delivery Method Nasal Cannula Weight: 199 lb 4.766 oz Body Mass Index (BMI) 34.2 Laboratory Results 06/30/19 14:15: WBC 22.6 H, RBC 4.69, Hgb 13.7, Hct 45.6, MCV 97.2, MCH 29.2, MCHC 30.0 L, RDW Std Deviation 54.1 H, RDW Coeff of Colt 15.6 H, Plt Count 398, MPV 9.1, Immature Gran % (Auto) 0.800, Neut % (Auto) 79.0 H, Lymph % (Auto) 11.8 L, [place] % (Auto) 7.8, Eos % (Auto) 0.4, Baso % (Auto) 0.2, Absolute Neuts (auto) 17.8 H, Absolute Lymphs (auto) 2.67, Nucleated RBC % 0.1, Differential Comment COMMENT, Diff Path Review July, Platelet Estimate ADEQUATE, Anisocytosis 1+ 06/30/19 14:15: Sodium 138, Potassium 3.8, Chloride 97 L, Carbon Dioxide 35.0 H, Anion Gap 6, BUN 26 H, Creatinine 0.91, Estim Creat Clear Calc 39.74, Est GFR (MDRD) Af Amer 76, Est GFR (MDRD) Non-Af 62, BUN/Creatinine Ratio 28.5 H, Glucose 116 H, Calcium 9.1, Troponin I < 0.015 06/30/19 14:15: B-Natriuretic Peptide 297.8 H Assessment/Plan Hospitalist note: I am seeing this patient in conjunction with Abdiel Hall. I independently seen and examined the patient. History and physical, laboratory data and imaging studies reviewed and I concur with the above admission and treatment plan. Patient presented to the emergency room because of shortness of breath, has been going on for 2 days, exertional, progressive, associated with increasing bilateral leg edema as well as orthopnea and PND, relieved with rest and exacerbated by any type of activity. She denied chest pain, palpitation, dizziness or lightheadedness. In the emergency department, her pulse ox was 88% on room air. Patient never been oxygen before. She was found to be in A. fib with RVR, heart rate has been in the 150s, blood pressures like elevated. She received 1 dose of IV Cardizem bolus and her heart rate remained mostly same, received another bolus of IV Cardizem. Routine blood work was remarkable for leukocytosis, otherwise unremarkable. EKG revealed A. fib with RVR, no acute acute changes. Troponin is negative. BNP was elevated. Chest x-ray was poor quality x-ray, elevated right hemidiaphragm, obliterated left costophrenic angle, no obvious infiltrate or effusion. She is being admitted for A. fib with RVR as well as acute on chronic diastolic CHF with hypoxia. - Physical Exam General: Alert, Oriented x3, Cooperative, minimally short of breath. HEENT: Atraumatic, PERRLA, EOMI. Neck: Supple, No JVD, Negative Carotid Bruits, Trachea Midline, Thyroid Normal. Lungs: Decreased breath sounds at the bases, faint bibasilar crackles, No rhonchi, No wheeze, short of breath. Cardiovascular: irregular rate, irregular Rhythm, Normal S1, Normal S2, PMI Normal, tachycardia. Abdomen: Bowel Sounds Present, Soft, Non Tender, Non-Distended, No Hepato-splenomegaly. Extremities: No clubbing, No cyanosis, ++ edema Skin: No rashes, No breakdown Neurological: Cranial nerves are intact, neuro grossly intact Assessment and plan: #1 acute on chronic diastolic CHF: She had 2D echocardiogram on November, that revealed ejection fraction of 65%, dilated right ventricle, severely enlarged left atrium, RVSP of 52 consistent with moderate pulmonary hypertension. Admit to PCU, cardiac monitoring, fluid restriction, start IV Lasix, input output chart, oxygen by nasal cannula to keep O2 saturation more than 92%, check TSH, repeat CBC and BMP tomorrow morning. #2 A. fib with RVR: Patient received 2 doses of IV Cardizem bolus in the ED. Plan: Start IV Cardizem drip if the heart rate still above 120, continue metoprolol, continue Eliquis, check TSH, monitor serum electrolytes. #3 hypoxia: Reportedly, pulse ox was 88% on room air upon arrival to ED. Now, pulse ox is improved on 2 L. Plan for diuresis as above. #4 leukocytosis: Unclear etiology, could be reactive. Chest x-ray showed no acute infiltrate. Patient denies any symptoms suggestive of infection. Plan for urinalysis, blood culture, repeat CBC tomorrow morning. #5 other chronic medical problems: Stable, continue current medications as above. This note was generated with [employer] dictation software. It may contain incorrect words, spelling, and punctuation that were not noted in checking the note before signing. Inpatient E&M: 97124 Init Hosp L3
[2019-06-30 16:23] LABS: Bacteria 0 SEEN /hpf (None Seen); Mucous, Urine 0 SEEN /hpf (<or=2+); White Blood Cells 0 SEEN /hpf (0-5)
[2019-06-30 16:27] LABS: Color, Urine Yellow (Yellow); Glucose, Dipstick Normal (Normal); Ketone-Dipstick Negative (Negative); Leukocyte Esterase-Dipstick Negative /ul (Negative); Nitrite-Dipstick Negative (Negative); Occult Blood-Urine 10 /ul (Negative); Protein-Dipstick 30 mg/dl (Negative); Specific Gravity, Urine 1.015 (1.002-1.030); Urine Bilirubin Dipstick Negative (Negative); Urine Clarity Sl. Cloudy (Clear); Urine Urobilinogen Normal (Normal)
[2019-06-30 16:33] LABS: Red Blood Cells-Urine 0-5 SEEN /hpf (0-5); Squamous Epithelial Cells - UA 0-5 SEEN /hpf (5-10)
[2019-06-30] MEDS: 0.9% Saline Lock 10 ML Syringe IV (17:16)
[2019-06-30 17:21] LABS: International Normalized Ratio 1.4; Prothrombin Time (Protime)PT. 16.4 SECONDS (11.7-14.9)
[2019-06-30 17:37] LABS: Thyroid Stim Hormone (TSH) 4.67 uIU/mL (0.358-3.74)
[2019-06-30] MEDS: Acetaminophen 325 MG Tablet 650 MG PO (19:27)
[2019-06-30] MEDS: Timolol 0.5% 5ML OPTH.BTL 1 DRP EACH EYE (21:01)
[2019-06-30] MEDS: Latanoprost 0.005% 1 Bottle 1 DRP EACH EYE (21:01)
[2019-06-30] MEDS: APIXABAN 5 MG TABLET PO (21:02)
[2019-06-30] MEDS: Donepezil HCl 10 MG Tablet PO (21:02)
[2019-06-30] MEDS: Metoprolol Tartrate 50 MG Tablet PO (21:02)
--- NOTE | 2019-06-30 21:15 | NURSING ---
RN CAME TO ROOM, PATIENT WILL ANSWER QUESTIONS KNOWS AT [facility] AND NAME AND YEAR, BUT WILL NOT FOLLOW COMMANDS WITH TAKING PILLS? SPOKE TO DR JONES ABOUT CONCERN FOR STROKE. DOES NOT THINK IS A STROKE, BELIEVES PATIENT IS SUN-DOWNING. WILL COME AND ASSESS PATIENT. WANTS TO CONTINUE TO MONITOR.
--- NOTE | 2019-06-30 22:50 | NURSING ---
RN SPOKE TO DAUGHTER ERICA STATES PATIENT HAS BEEN HALLUCINATING AT NIGHT SOMETIMES AT HOME HAS GOTTEN WORSE THE LAST WEEK. PATIENT DOES HAVE DEMENTIA
--- NOTE | 2019-06-30 23:03 | NURSING ---
RN NOTIFIED RESPIRATORY ABOUT PATIENT NOT MAINTAINING SATS UP TO 6LNC NOW.
--- NOTE | 2019-06-30 23:22 | CT_ITS ---
STUDY: CT BRAIN WITHOUT CONTRAST REASON FOR EXAM: Female, 84 years old. Altered mental status. RADIATION DOSAGE (If Supplied By Facility): CTDIvol = ( 44.99 ) mGy, DLP = ( 796.11 ) mGycm TECHNIQUE: Transaxial CT imaging of the brain was performed without administration of intravenous contrast material. Individualized dose optimization techniques were used for this CT. COMPARISON: August 25, 2015. FINDINGS: Normal soft tissue structures. Normal calvarium. Normal size ventricles and extra-axial spaces for the patient''s age. Normal white matter tracts of the cerebral hemispheres. Normal basal ganglia and thalami. Normal brainstem. Normal cerebellum. There is no intracranial hemorrhage. There are no findings of an acute ischemic infarction. 1.3 x 1.3 cm soft tissue attenuation mass containing curvilinear calcification is now present within the floor of the right maxillary sinus probably related to chronic inflammation. Mild thickening posterior wall right maxillary sinus also compatible with chronic inflammation. CT/Brain/Head without Contrast IMPRESSION: Normal CT of the brain for the patient''s age. 1.3 cm soft tissue attenuation mass floor of the right maxillary sinus probably related to chronic inflammation. Recommend nonemergent ENT consult. Electronically Signed: Arthur Hernandez MD at 0:07 EDT , Service support ,
--- NOTE | 2019-06-30 23:55 | CPS ---
Critical ABG results sent to Dr Izaguirre by [facility].
[2019-06-30 23:56] LABS: Base Excess 16 mmol/L (-2 to +2); Bicarbonate 44.4 mmol/L (22-26); PO2 98 mmHG (75-100); SO2 95 % (95-99); Total Carbon Dioxide 48 mmol/L; pCO2 112.4 mmHg (35-45)
[2019-06-30 23:56] LABS: Bedside Glucose 129 mg/dL (70-110)
[2019-06-30 23:57] LABS: Blood Gas Specimen Type ART; SITE L RADIAL
[2019-06-30 23:58] LABS: O2 Delivery Device Nasal Can; Time Given 2341
[2019-07-01] VITALS (20 sets, daily range): BP systolic 82–110; BP diastolic 42–77; PULSE 84–126; RESP 14–34; TEMP 36.3–36.9; O2SAT 78–98
--- NOTE | 2019-07-01 00:04 | NURSING ---
RESPIRATORY IN ROOM PLACING PATIENT ON BIPAP DUE TO ABG RESULTS. DR JONES AWARE AND TO REPEATE ABG IN 2 HOURS.
--- NOTE | 2019-07-01 02:15 | CPS ---
CRITICAL VALUE PCO2 [address] BOLIVAR [id number]. PT REMAINS ON BIPAP. ATTEMPTED AVAPS MODE, HOWEVER, PT BEGAN HAVING CENTRAL EVENTS. SIGNIFICANT PERIODS OF APNEA, WHICH SHE HADN'T DONE UNTIL WE CHANGED THE MODE. PLACED PT BACK ON 20/10 40%. PT NO LONGER HAVING CENTRAL EVENTS
[2019-07-01 04:01] LABS: Base Excess 12 mmol/L (-2 to +2); Bicarbonate 39.6 mmol/L (22-26); PO2 85 mmHG (75-100); SO2 93 % (95-99); Total Carbon Dioxide 42 mmol/L; pCO2 96.1 mmHg (35-45); pH 7.22 (7.35-7.45)
[2019-07-01 04:02] LABS: Blood Gas Specimen Type ART; SITE LR
[2019-07-01 04:03] LABS: Allen Test POS; EPAP 10; IPAP 20
[2019-07-01 04:04] LABS: FI02 40; O2 Delivery Device Bi Pap; Time Given 215
--- NOTE | 2019-07-01 04:24 | NURSING ---
PATIENT IS MORE ALERT AND TAKING OFF BIPAP FREQUENTLY RN HAS BEEN IN PUTTING BACK ON.
[2019-07-01 05:30] LABS: Base Excess 14 mmol/L (-2 to +2); Bicarbonate 39.8 mmol/L (22-26); PO2 85 mmHG (75-100); SO2 95 % (95-99); Total Carbon Dioxide 42 mmol/L; pCO2 76.5 mmHg (35-45); pH 7.32 (7.35-7.45)
[2019-07-01 05:33] LABS: Allen Test POS; Blood Gas Specimen Type ART; EPAP 10; FI02 40; IPAP 20; O2 Delivery Device Bi Pap; SITE L RADIAL
[2019-07-01 05:34] LABS: Time Given 520
[2019-07-01 06:43] LABS: Absolute Lymphocyte Count 0.87 X10^3/uL (0.83-4.51); Absolute Neutrophil Count 15.7 X10^3/uL (2.0-7.7); Basophil# 0.03 X10^3/uL; Basophil% 0.2 % (0-1); Eosinophil# 0.01 X10^3/uL; Eosinophils% 0.1 % (0-5); Hematocrit 42.5 % (37-47); Hemoglobin 12.7 g/dL (12.0-15.0); Lymphocyte # 0.87 X10^3/ul (4.0); Lymphocyte % 4.9 % (19-41); Mean Corp Hgb Conc 29.9 g/dL (32-36); Mean Corpuscular Hgb 29.7 pg (27.0-32.0); Mean Corpuscular Volume 99.3 fL (81-99); Monocyte# 1.09 X10^3/uL; Monocyte% 6.1 % (0-10); NRBC Flagged by Analyzer 0.2 % (0-5); Neutrophil # 15.72 X10^3/uL (2.7-7.7); Platelet Count 353 K/mm3 (150-450); RBC Distribution Width CV 15.3 % (11.6-14.6); RBC Distribution Width SD 54.5 fl (35.1-43.9); Red Blood Count 4.28 M/mm3 (4.2-5.4); White Blood Count 17.9 K/mm3 (4.4-11.0)
[2019-07-01 07:10] LABS: Anion Gap 2 (5-15); BUN 29 mg/dL (7-18); BUN/Creat Ratio 24.2 RATIO (10-20); Calcium,Total 8.5 mg/dL (8.5-10.1); Chloride 99 mmol/L (98-107); EST Glomerular Filtration Rate 45 mL/min (>60); Est Glom Filt Rate - Afr Amer 55 mL/min (>60); Estimated Creatinine Clearance 30.14 ml/min; Glucose 94 mg/dL (74-106); Potassium 5.2 mmol/L (3.5-5.1); Sodium Level 138 mmol/L (136-145)
[2019-07-01] MEDS: Mirtazapine 15 MG Tablet PO (07:57)
[2019-07-01] MEDS: Timolol 0.5% 5ML OPTH.BTL 1 DRP EACH EYE (07:57)
[2019-07-01] MEDS: APIXABAN 5 MG TABLET PO (07:57)
[2019-07-01] MEDS: Metoprolol Tartrate 50 MG Tablet PO (07:58)
[2019-07-01] MEDS: 0.9% Saline Lock 10 ML Syringe IV (08:04)
[2019-07-01] MEDS: Furosemide 40 MG/4 ML Vial IV (08:04)
[2019-07-01 08:42] LABS: T4 Free Direct 1.55 ng/dL (0.76-1.46)
--- NOTE | 2019-07-01 10:17 | PCM.PN.HOSP ---
<Abdiel Hall - Last Filed: 07/01/19 10:17> Patient Problems: Active and Suspected Problems (Last Updated 06/30/19 @ 16:[address] Dixie Hardy MD) Atrial fibrillation with RVR (Acute) Acute on chronic diastolic CHF (congestive heart failure) (Acute) Subjective: Pt resting comfortably in bed NAD. A/Ox3 today. SOB improved. LE edema improved. No N/V. No cough/fever/chills. Pt does not remember using bipap last night. Vitals/I&O's: Vital Signs Temp Pulse Resp BP Pulse Ox 97.4 F L 99 16 89/55 L 95 07/01/19 08:00 07/01/19 10:00 07/01/19 10:00 07/01/19 10:00 07/01/19 10:00 Oxygen Flow Rate (L/min) 2 Oxygen Delivery Method Bi-pap Weight: 192 lb 3.889 oz Body Mass Index (BMI) 33.0 Intake and Output for Last 24 Hours 06/29/19 06/30/19 07/01/19 23:59 23:59 23:59 Intake Total 187.58 / 292.58 137.47 / 137.47 Output Total 800 / 800 200 / 200 Balance -612.42 / -507.42 -62.53 / -62.53 General: Alert, Oriented x3, Cooperative HEENT: Atraumatic, PERRLA, EOMI, Normocephalic Neck: Supple, No JVD, Negative Carotid Bruits Lungs: Clear to auscultation, Normal air movement Cardiovascular: Regular rate, No murmurs Abdomen: Bowel Sounds Present, Soft, Non Tender Extremities: No edema, Capillary Refill Less than 3 Seconds Skin: No rashes, No breakdown Musculoskeletal: No Tenderness to Palpation of Joints or Extremities Neurological: Cranial nerves II-XII grossly intact Psych/Mental Status: Normal Affect, Appropriate, Alert and oriented to time, place, person, mood and affect Laboratory Results 06/30/19 14:15: WBC 22.6 H, RBC 4.69, Hgb 13.7, Hct 45.6, MCV 97.2, MCH 29.2, MCHC 30.0 L, RDW Std Deviation 54.1 H, RDW Coeff of Colt 15.6 H, Plt Count 398, MPV 9.1, Immature Gran % (Auto) 0.800, Neut % (Auto) 79.0 H, Lymph % (Auto) 11.8 L, [place] % (Auto) 7.8, Eos % (Auto) 0.4, Baso % (Auto) 0.2, Absolute Neuts (auto) 17.8 H, Absolute Lymphs (auto) 2.67, Nucleated RBC % 0.1, Differential Comment COMMENT, Diff Path Review May foll, Platelet Estimate ADEQUATE, Anisocytosis 1+ 06/30/19 14:15: Sodium 138, Potassium 3.8, Chloride 97 L, Carbon Dioxide 35.0 H, Anion Gap 6, BUN 26 H, Creatinine 0.91, Estim Creat Clear Calc 39.74, Est GFR (MDRD) Af Amer 76, Est GFR (MDRD) Non-Af 62, BUN/Creatinine Ratio 28.5 H, Glucose 116 H, Calcium 9.1, Troponin I < 0.015 06/30/19 14:15: B-Natriuretic Peptide 297.8 H 06/30/19 14:15: PT 16.4 H, INR 1.4 06/30/19 14:15: TSH 4.67 H 06/30/19 14:15: Magnesium 2.0 06/30/19 14:15: Phosphorus 3.0 06/30/19 16:16: Urine Color Yellow, Urine Clarity Sl. Cloudy, Urine pH 6.0, Ur Specific [employer] 1.015, Urine Protein 30 H, Urine Glucose (UA) Normal, Urine Ketones Negative, Urine Occult Blood 10 H, Urine Nitrite Negative, Urine Bilirubin Negative, Urine Urobilinogen Normal, Ur Leukocyte Esterase Negative, Urine RBC 0-5 SEEN, Urine WBC 0 SEEN, Ur Squamous Epith Cells 0-5 SEEN, Urine Bacteria 0 SEEN, Urine Mucus 0 SEEN 06/30/19 23:29: POC Glucose 129 H 06/30/19 23:41: Specimen Type ART, Sample Site L RADIAL, pH 7.20 L, Bicarbonate Actual 44.4 H, POC Total CO2 48, Base Excess 16 H, O2 Saturation 95, ABG pCO2 112.4 H*, ABG pO2 98, O2 Delivery Device Nasal Can, Liter Flow 7.0, Blood Gas Notified Whom LAITH FORD, Blood Gas Notified Time 21207/01/19 02:11: Specimen Type ART, Sample Site LR, pH 7.22 L, Bicarbonate Actual 39.6 H, POC Total CO2 42, Base Excess 12 H, O2 Saturation 93 L, O2 % 40, ABG pCO2 96.1 H*, ABG pO2 85, Denny Test POS, O2 Delivery Device Bi Pap, EPAP 10, IPAP 20, Blood Gas Notified Whom LAITH FORD, Blood Gas Notified Time 215 07/01/19 05:06: Specimen Type ART, Sample Site L RADIAL, pH 7.32 L, Bicarbonate Actual 39.8 H, POC Total CO2 42, Base Excess 14 H, O2 Saturation 95, O2 % 40, ABG pCO2 76.5 H*, ABG pO2 85, Denny Test POS, O2 Delivery Device Bi Pap, EPAP 10, IPAP 20, Blood Gas Notified Whom LAITH FORD, Blood Gas Notified Time 520 07/01/19 06:32: WBC 17.9 H, RBC 4.28, Hgb 12.7, Hct 42.5, MCV 99.3 H, MCH 29.7, MCHC 29.9 L, RDW Std Deviation 54.5 H, RDW Coeff of Colt 15.3 H, Plt Count 353, MPV 9.0, Immature Gran % (Auto) 0.700, Neut % (Auto) 88.0 H, Lymph % (Auto) 4.9 L, [place] % (Auto) 6.1, Eos % (Auto) 0.1, Baso % (Auto) 0.2, Absolute Neuts (auto) 15.7 H, Absolute Lymphs (auto) 0.87, Nucleated RBC % 0.2 07/01/19 06:32: Sodium 138, Potassium 5.2 H, Chloride 99, Carbon Dioxide 37.0 H, Anion Gap 2 L, BUN 29 H, Creatinine 1.20 H, Estim Creat Clear Calc 30.14, Est GFR (MDRD) Af Amer 55 L, Est GFR (MDRD) Non-Af 45 L, BUN/Creatinine Ratio 24.2 H, Glucose 94, Calcium 8.5 07/01/19 06:32: Free T4 1.55 H Current Medications Acetaminophen (Tylenol) 650 mg PO Q6H PRN PRN PRN Reason: Pain Score 1-10/Temp > 100.7 F Last Admin: 06/30/19 19:27 Dose: 650 mg Documented by: Apixaban (Eliquis) 5 mg PO BID [facility] Last Admin: 07/01/19 07:57 Dose: 5 mg Documented by: Donepezil HCl (Aricept) 10 mg PO QHS [facility] Last Admin: 06/30/19 21:02 Dose: 10 mg Documented by: Furosemide (Lasix) 40 mg IV BID@1000,1800 [facility] Last Admin: 07/01/19 08:04 Dose: 40 mg Documented by: Sodium Chloride () 250 mls @ 15 mls/hr IV .[id number] PRN PRN Reason: Saline Flush Last Infusion: 07/01/19 04:27 Dose: 0 mls/hr Documented by: Sodium Chloride () 250 mls @ 15 mls/hr IV .[id number] PRN PRN Reason: Additional IVPB Infusion Latanoprost (Xalatan Opthalmic) 1 drop EACH EYE QHS [facility] Last Admin: 06/30/19 21:01 Dose: 1 drop Documented by: Levothyroxine Sodium (Synthroid) 137 mcg PO DAILY@0600 [facility] Last Admin: 07/01/19 03:32 Dose: Not Given Documented by: Metoprolol Tartrate (Lopressor (Beta Flory)) 50 mg PO BID [facility] Last Admin: 07/01/19 07:58 Dose: 50 mg Documented by: Mirtazapine (Remeron) 15 mg PO DAILY [facility] Last Admin: 07/01/19 07:57 Dose: 15 mg Documented by: Nutritional Formula (Lactose Free) (Ensure Enlive) 120 ml PO 4X/DAY [facility] Last Admin: 07/01/19 07:57 Dose: 120 ml Documented by: Ondansetron HCl (Zofran) 4 mg IV Q8H PRN PRN PRN Reason: NAUSEA/VOMITING Senna/Docusate Sodium (Senokot-S, [place]-Colace) 2 tablet PO BID PRN PRN PRN Reason: Constipation Sodium Chloride () 10 - 40 ml IV UD PRN PRN Reason: SALINE FLUSH Last Admin: 07/01/19 08:04 Dose: 10 ml Documented by: Timolol Maleate (Timoptic) 1 drop EACH EYE BID [facility] Last Admin: 07/01/19 07:57 Dose: 1 drop Documented by: Zolpidem Tartrate (Ambien (Generic)) 5 mg PO QHS PRN PRN PRN Reason: INSOMNIA STROKE Vital Signs/Narrative: Vital Signs Temp Pulse Resp BP BP Pulse Ox 07/01/19 10:00 99 16 89/55 L 95 07/01/19 09:00 95 16 98/67 98 07/01/19 08:00 97.4 F L 115 H 34 H 101/72 96 07/01/19 07:58 126 H 98/69 07/01/19 07:45 88 18 95 07/01/19 07:00 97.4 F L 111 H 16 85/64 L 90 Medical Necessity - Tobacco Use Smoking Status: Never smoker Tobacco Use: Non-smoker Assessment/Plan All Active Problems (Last Updated 06/30/19 @ 16:[address] Dixie Hardy MD) Atrial fibrillation with RVR (Acute) Acute on chronic diastolic CHF (congestive heart failure) (Acute) 1. Acute on chronic diastolic CHF exacerbation - continue IV lasix. Monitor CO2. Continue I/O, fluid/sodium restriction, and daily GARY wraps. -Patient had a stress echo December 2017 which showed an EF of 65%, she was in A. fib at that time, had no evidence of acute ischemia at that time. -Repeat echocardiogram. -Patient had a 2D echo 11/2017 which demonstrated pulmonary hypertension as well-RVSP 52 mmHg. 2. Resp. Acidosis with hypercarbia and CO2 narcosis - bipap overnight. Pulmonary medicine consulted. 2. Afib with RVR - Taken off cardizem drip overnight. Rate ~100 now. Continue Eliquis. Continue metoprolol. BP borderline. 3. Hypothyroidism - Continue synthroid. TSH mildly elevated, T3/4 pending. 4. Leukocytosis - unclear etiology. Improving. pt not reporting any symptoms consistent with acute infectious. Afebrile. 5. Dementia - continue aricept. lives with daughter. DVT ppx: eliquis This patient was seen by Abdiel Hall PA-C under the supervision of Dr. Winchester <Caleb Winchester - Last Filed: 07/01/19 13:31> Vitals/I&O's: Vital Signs Temp Pulse Resp BP Pulse Ox 97.4 F L 104 H 22 H 104/73 97 07/01/19 08:00 07/01/19 13:00 07/01/19 13:00 07/01/19 13:00 07/01/19 13:00 Oxygen Flow Rate (L/min) 2 Oxygen Delivery Method Nasal Cannula Weight: 87.2 kg Body Mass Index (BMI) 33.0 Intake and Output for Last 24 Hours 06/29/19 06/30/19 07/01/19 23:59 23:59 23:59 Intake Total 187.58 / 292.58 537.47 / 537.47 Output Total 800 / 800 400 / 400 Balance -612.42 / -507.42 137.47 / 137.47 Laboratory Results 06/30/19 14:15: WBC 22.6 H, RBC 4.69, Hgb 13.7, Hct 45.6, MCV 97.2, MCH 29.2, MCHC 30.0 L, RDW Std Deviation 54.1 H, RDW Coeff of Colt 15.6 H, Plt Count 398, MPV 9.1, Immature Gran % (Auto) 0.800, Neut % (Auto) 79.0 H, Lymph % (Auto) 11.8 L, [place] % (Auto) 7.8, Eos % (Auto) 0.4, Baso % (Auto) 0.2, Absolute Neuts (auto) 17.8 H, Absolute Lymphs (auto) 2.67, Nucleated RBC % 0.1, Differential Comment COMMENT, Diff Path Review Reviewed, Platelet Estimate ADEQUATE, Anisocytosis 1+ 06/30/19 14:15: Sodium 138, Potassium 3.8, Chloride 97 L, Carbon Dioxide 35.0 H, Anion Gap 6, BUN 26 H, Creatinine 0.91, Estim Creat Clear Calc 39.74, Est GFR (MDRD) Af Amer 76, Est GFR (MDRD) Non-Af 62, BUN/Creatinine Ratio 28.5 H, Glucose 116 H, Calcium 9.1, Troponin I < 0.015 06/30/19 14:15: B-Natriuretic Peptide 297.8 H 06/30/19 14:15: PT 16.4 H, INR 1.4 06/30/19 14:15: TSH 4.67 H 06/30/19 14:15: Magnesium 2.0 06/30/19 14:15: Phosphorus 3.0 06/30/19 16:16: Urine Color Yellow, Urine Clarity Sl. Cloudy, Urine pH 6.0, Ur Specific [employer] Mdl 1.015, Urine Protein 30 H, Urine Glucose (UA) Normal, Urine Ketones Negative, Urine Occult Blood 10 H, Urine Nitrite Negative, Urine Bilirubin Negative, Urine Urobilinogen Normal, Ur Leukocyte Esterase Negative, Urine RBC 0-5 SEEN, Urine WBC 0 SEEN, Ur Squamous Epith Cells 0-5 SEEN, Urine Bacteria 0 SEEN, Urine Mucus 0 SEEN 06/30/19 23:29: POC Glucose 129 H 06/30/19 23:41: Specimen Type ART, Sample Site L RADIAL, pH 7.20 L, Bicarbonate Actual 44.4 H, POC Total CO2 48, Base Excess 16 H, O2 Saturation 95, ABG pCO2 112.4 H*, ABG pO2 98, O2 Delivery Device Nasal Can, Liter Flow 7.0, Blood Gas Notified Whom [facility] , Blood Gas Notified Time 2341 07/01/19 02:11: Specimen Type ART, Sample Site LR, pH 7.22 L, Bicarbonate Actual 39.6 H, POC Total CO2 42, Base Excess 12 H, O2 Saturation 93 L, O2 % 40, ABG pCO2 96.1 H*, ABG pO2 85, Denny Test POS, O2 Delivery Device Bi Pap, EPAP 10, IPAP 20, Blood Gas Notified Whom [facility] , Blood Gas Notified Time 215 07/01/19 05:06: Specimen Type ART, Sample Site L RADIAL, pH 7.32 L, Bicarbonate Actual 39.8 H, POC Total CO2 42, Base Excess 14 H, O2 Saturation 95, O2 % 40, ABG pCO2 76.5 H*, ABG pO2 85, Denny Test POS, O2 Delivery Device Bi Pap, EPAP 10, IPAP 20, Blood Gas Notified Whom [facility] , Blood Gas Notified Time 520 07/01/19 06:32: WBC 17.9 H, RBC 4.28, Hgb 12.7, Hct 42.5, MCV 99.3 H, MCH 29.7, MCHC 29.9 L, RDW Std Deviation 54.5 H, RDW Coeff of Colt 15.3 H, Plt Count 353, MPV 9.0, Immature Gran % (Auto) 0.700, Neut % (Auto) 88.0 H, Lymph % (Auto) 4.9 L, [place] % (Auto) 6.1, Eos % (Auto) 0.1, Baso % (Auto) 0.2, Absolute Neuts (auto) 15.7 H, Absolute Lymphs (auto) 0.87, Nucleated RBC % 0.2 07/01/19 06:32: Sodium 138, Potassium 5.2 H, Chloride 99, Carbon Dioxide 37.0 H, Anion Gap 2 L, BUN 29 H, Creatinine 1.20 H, Estim Creat Clear Calc 30.14, Est GFR (MDRD) Af Amer 55 L, Est GFR (MDRD) Non-Af 45 L, BUN/Creatinine Ratio 24.2 H, Glucose 94, Calcium 8.5 07/01/19 06:32: Free T4 1.55 H 07/01/19 06:32: Free T3 pg/dL 1.7 L 07/01/19 12:45: Urine Color YELLOW, Urine Clarity Clear, Urine pH 6.0, Ur Specific [employer] Mdl 1.010, Urine Protein Negative, Urine Glucose (UA) Normal, Urine Ketones Negative, Urine Occult Blood Negative, Urine Nitrite Negative, Urine Bilirubin Negative, Urine Urobilinogen Normal, Ur Leukocyte Esterase Negative, Urine RBC 0 SEEN, Urine WBC 0 SEEN, Ur Squamous Epith Cells 0 SEEN, Urine Bacteria 0 SEEN, Urine Mucus 0 SEEN Current Medications Acetaminophen (Tylenol) 650 mg PO Q6H PRN PRN PRN Reason: Pain Score 1-10/Temp > 100.7 F Last Admin: 06/30/19 19:27 Dose: 650 mg Documented by: Apixaban (Eliquis) 5 mg PO BID [facility] Last Admin: 07/01/19 07:57 Dose: 5 mg Documented by: Donepezil HCl (Aricept) 10 mg PO QHS [facility] Last Admin: 06/30/19 21:02 Dose: 10 mg Documented by: Sodium Chloride () 250 mls @ 15 mls/hr IV .[id number] PRN PRN Reason: Saline Flush Last Infusion: 07/01/19 04:27 Dose: 0 mls/hr Documented by: Sodium Chloride () 250 mls @ 15 mls/hr IV .[id number] PRN PRN Reason: Additional IVPB Infusion Latanoprost (Xalatan Opthalmic) 1 drop EACH EYE QHS [facility] Last Admin: 06/30/19 21:01 Dose: 1 drop Documented by: Levothyroxine Sodium (Synthroid) 137 mcg PO DAILY@0600 [facility] Last Admin: 07/01/19 03:32 Dose: Not Given Documented by: Metoprolol Tartrate (Lopressor (Beta Flory)) 50 mg PO BID [facility] Last Admin: 07/01/19 07:58 Dose: 50 mg Documented by: Mirtazapine (Remeron) 15 mg PO DAILY [facility] Last Admin: 07/01/19 07:57 Dose: 15 mg Documented by: Ondansetron HCl (Zofran) 4 mg IV Q8H PRN PRN PRN Reason: NAUSEA/VOMITING Senna/Docusate Sodium (Senokot-S, [place]-Colace) 2 tablet PO BID PRN PRN PRN Reason: Constipation Sodium Chloride () 10 - 40 ml IV UD PRN PRN Reason: SALINE FLUSH Last Admin: 07/01/19 08:04 Dose: 10 ml Documented by: Timolol Maleate (Timoptic) 1 drop EACH EYE BID [facility] Last Admin: 07/01/19 07:57 Dose: 1 drop Documented by: Zolpidem Tartrate (Ambien (Generic)) 5 mg PO QHS PRN PRN PRN Reason: INSOMNIA STROKE Vital Signs/Narrative: Vital Signs Pulse Resp BP Pulse Ox 07/01/19 13:00 104 H 22 H 104/73 97 07/01/19 12:00 103 H 18 103/59 L 95 07/01/19 11:00 100 20 H 86/62 L 98 07/01/19 10:56 103 H 07/01/19 10:00 99 16 89/55 L 95 Assessment/Plan This patient was seen in conjunction with Abdiel Hall PA-C . I have independently interviewed and examined the patient and reviewed pertinent historical, laboratory, and other data. Please refer to Abdiel Hall PA-C note for details of this patient's presentation, findings, and recommendations. I have reviewed Abdiel Hall PA-C note and concur with documented findings. In brief, patient is an 84-year-old lady admitted with progressive shortness of breath and assessment of acute on chronic congestive heart failure made admitted to a monitored bed for further management Physical Examination: GENERAL: On BiPAP HEENT: Atraumatic; EYES; Anicteric, Normal Conjunctiva NECK; supple, normal thyroid, RESPIRATORY: Diminished to auscultation CARDIOVASCULAR: Regular S1 S2, GI: soft, normoactive bowel sounds, : No Renal angle tenderness; SKIN: No Rash PSYCH; Flat affect Assessment: 1. Acute on chronic diastolic congestive heart failure 2. Acute hypercapnic respiratory failure 3. Respiratory acidosis 4. A. fib with RVR 5. Hypothyroidism 6. Dementia 7. DVT prophylaxis?Eliquis Recommendations: 1. I have discussed the results of my overview and impressions with the patient 2. Options for management were reviewed Inpatient E&M: [id number] Subs Hosp L2
[2019-07-01 10:28] LABS: Pathologist Review Reviewed
--- NOTE | 2019-07-01 10:28 | NURSING ---
daughter Danilele updated on pt's POC
--- NOTE | 2019-07-01 10:50 | CASEMGMT ---
Per RN she spoke with patient's daughter and she was interested in talking to Hospice/Palliative Care. SW called patient's daughter, introduced self and role at [facility]. SW explained how the process works and they would be giving her a call to set up an appt. SW called [facility] and made a referral. SW also faxed referral. Danielle SUÁREZ MSW
[2019-07-01 11:16] LABS: Free T3 1.7 pg/mL (2.18-3.98)
--- NOTE | 2019-07-01 12:07 | PCM.CONS.PUL ---
Reason for Consult Date of Consultation: 07/01/19 Reason for Consultation: Acute combined respiratory failure History of Present Illness: The patient is an 84-year-old female, with a history as outlined below, who presented to the emergency department on June 29 with complaints of shortness of breath and weakness. The patient does have a history of heart failure with preserved ejection fraction along with pulmonary hypertension. She also has baseline dementia and hypothyroidism. On presentation to the emergency department, the patient was noted to be in atrial fibrillation with a rapid ventricular rate. The patient was, nevertheless, hemodynamically stable and maintaining appropriate oxygen saturations on 4 L/min via nasal cannula. Initial laboratory evaluation revealed an elevated white blood cell count to 22,000. Chemistry profile was notable for a chloride of 97 and bicarbonate of 35. BNP was elevated to 298. Urine analysis was largely unrevealing. Chest x-ray revealed a elevated right hemidiaphragm without focal consolidation or infiltrate. The patient was initially admitted to the progressive care unit, where she has been managed for a presumptive heart failure exacerbation with IV Lasix. Last evening, the patient became increasingly lethargic and was found to have an elevated CO2. Of note, the patient was hospitalized in November 2017 under very similar circumstances during that hospitalization she was noted to be increasingly lethargic and less responsive by the overnight hospitalist and was also noted at that time to be retaining CO2. At that time, it was recommended that the patient follow-up in the pulmonary medicine clinic to undergo a polysomnogram. She failed to do so. Past Medical History Past Medical History (Chronic Problems): Chronic Problems (Last Updated 06/30/19 @ 16:[address] Dixie Hardy MD) Chronic diastolic CHF (congestive heart failure) (Chronic) Obesity (BMI 30.0-34.9) (Chronic) PAF (paroxysmal atrial fibrillation) (Chronic) ETOH abuse (Chronic) Chronic back pain (Chronic) Dementia without behavioral disturbance (Chronic) Insomnia (Chronic) Hypothyroidism (Chronic) Hypertension (Chronic) Medical History: Medical History (Last Updated 06/30/19 @ 16:[address] Dixie Hardy MD) ETOH abuse (Chronic) F10.10 Chronic back pain (Chronic) M54.9, G89.29 Dementia without behavioral disturbance (Chronic) F03.90 Insomnia (Chronic) G47.00 Hypothyroidism (Chronic) E03.9 Hypertension (Chronic) I10 Allergies lisinopril Allergy (Verified 06/30/19 14:22) Unknown losartan [From Cozaar] Allergy (Verified 06/30/19 14:22) Unknown NSAIDS (Non-Steroidal Anti-Inflamma Allergy (Verified 06/30/19 14:22) Unknown Home Medications: Ambulatory Orders Medication Instructions Recorded Ergocalciferol [Vitamin D] 50,000 unit PO Q30D 01/16/17 Latanoprost 0.005% [Xalatan 1 drp EACH EYE QHS 01/16/17 Opthalmic] Timolol 0.5% [Timoptic] 1 drp EACH EYE BID 01/16/17 Apixaban [Eliquis] 5 mg PO BID 11/12/17 Calcium Carbonate/Vitamin D3 1 ea PO BID 11/12/17 [Calcium 600-Vit D3 400 Caplet] Donepezil HCl [Aricept] 10 mg PO QHS 11/12/17 Multivitamin [Multiple Vitamins] 1 ea PO DAILY 11/12/17 metoprolol tartrate 50 mg tablet 50 mg PO BID 12/19/17 Levothyroxine [Synthroid] 137 mcg PO DAILY 06/30/19 Mirtazapine [Remeron] 15 mg PO DAILY 06/30/19 Acetaminophen [Tylenol Tablet] 650 mg PO Q6H PRN PRN tab 07/01/19 Furosemide [Lasix] 40 mg PO DAILY PRN PRN #30 tab 07/01/19 Surgical History: Surgical History (Last Reviewed 12/19/17 @ 10:55 by Nancy Han) History of tonsillectomy Z90.89 History of total abdominal hysterectomy Z90.710 Surgical History: adenoidectomy, hysterectomy, tonsillectomy Psychiatric History: Anxiety, Depression DESIGN SALES CONSULTANT History: No pertinent DESIGN SALES CONSULTANT history Lives: With Family - daughter Smoking Status: Never smoker Tobacco Use: Non-smoker Alcohol: Sober Drugs: None - *Family History Maternal Family History: Family History (Last Reviewed 12/19/17 @ 10:55 by Nancy Han) Unknown No problems noted. History Items: No pertinent history - denies heart dz, diabetes, cancer, stroke. of old age. Paternal Family History: Family History (Last Reviewed 12/19/17 @ 10:55 by Nancy Han) Unknown No problems noted. History Items: Hypertension, No pertinent history - denies heart dz, diabetes, cancer, stroke. of old age. Review of Systems Constitutional: Denies: Chills, Fever Eyes: Denies: Blurred vision, Double vision HEENT: Denies: Head Aches, Sinus Congestion, Sinus Drainage Cardiovascular: Reports: Chest Pain Respiratory: Reports: Shortness of Breath Gastrointestinal: Denies: Abdominal Pain, Nausea, Vomiting Genitourinary: Denies: Dysuria Musculoskeletal: Denies: Joint Pain, Joint Tenderness Skin: Denies: Rash, Wounds Neurological: Denies: Numbness, Tingling, Focal weakness Psychiatric: Reports: Anxiety Hematologic/ Lymphatic: Denies: Easy Bruising, Easy Bleeding Objective: The patient's most recent lab work, culture data and imaging studies have all been personally reviewed. Blood and urine cultures are pending. - Physical Exam Vitals/I&O's: Vital Signs Temp Pulse Resp BP Pulse Ox 97.4 F L 100 20 H 86/62 L 98 07/01/19 08:00 07/01/19 11:00 07/01/19 11:00 07/01/19 11:00 07/01/19 11:00 Oxygen Flow Rate (L/min) 2 Oxygen Delivery Method Bi-pap Weight: 192 lb 3.889 oz Body Mass Index (BMI) 33.0 Intake and Output for Last 24 Hours 06/29/19 06/30/19 07/01/19 23:59 23:59 23:59 Intake Total 187.58 / 292.58 537.47 / 537.47 Output Total 800 / 800 400 / 400 Balance -612.42 / -507.42 137.47 / 137.47 General: Alert, Confused, Disoriented HEENT: Atraumatic, Normocephalic Oral: No Gingival or Mucosal Lesions/ Ulcerations Neck: Supple, No Nodes, Trachea Midline Lungs: No rhonchi, No wheeze, No rales, Diminished Cardiovascular: Regular rate, Regular Rhythm, Normal S1, Normal S2 Abdomen: Bowel Sounds Present, Soft, Non Tender Extremities: No clubbing, No cyanosis, Edema Skin: No breakdown Musculoskeletal: No Tenderness to Palpation of Joints or Extremities Lymphatic: No Cervical, Supraclavicular, or Inguinal Adenopathy Neurological: Neuro grossly intact Psych/Mental Status: Anxious, Restless Labs (Last 48 Hours) 06/30/19 06/30/19 06/30/19 14:15 14:15 14:15 WBC 22.6 H RBC 4.69 Hgb 13.7 Hct 45.6 MCV 97.2 MCH 29.2 MCHC 30.0 L RDW Std Deviation 54.1 H RDW Coeff of Colt 15.6 H Plt Count 398 MPV 9.1 Immature Gran % (Auto) 0.800 Neut % (Auto) 79.0 H Lymph % (Auto) 11.8 L Stewart % (Auto) 7.8 Eos % (Auto) 0.4 Baso % (Auto) 0.2 Absolute Neuts (auto) 17.8 H Absolute Lymphs (auto) 2.67 Nucleated RBC % 0.1 Differential Comment COMMENT Diff Path Review Reviewed Platelet Estimate ADEQUATE Anisocytosis 1+ PT INR Specimen Type Sample Site pH Bicarbonate Actual POC Total CO2 Base Excess O2 Saturation O2 % ABG pCO2 ABG pO2 Denny Test O2 Delivery Device Liter Flow EPAP IPAP Blood Gas Notified Whom Blood Gas Notified Time Sodium 138 Potassium 3.8 Chloride 97 L Carbon Dioxide 35.0 H Anion Gap 6 BUN 26 H Creatinine 0.91 Estim Creat Clear Calc 39.74 Est GFR (MDRD) Af Amer 76 Est GFR (MDRD) Non-Af 62 BUN/Creatinine Ratio 28.5 H Glucose 116 H Calcium 9.1 Phosphorus Magnesium Troponin I < 0.015 B-Natriuretic Peptide 297.8 H TSH Free T4 Free T3 pg/dL Urine Color Urine Clarity Urine pH Ur Specific [place] Urine Protein Urine Glucose (UA) Urine Ketones Urine Occult Blood Urine Nitrite Urine Bilirubin Urine Urobilinogen Ur Leukocyte Esterase Urine RBC Urine WBC Ur Squamous Epith Cells Urine Bacteria Urine Mucus POC Glucose 06/30/19 06/30/19 06/30/19 14:15 14:15 14:15 WBC RBC Hgb Hct MCV MCH MCHC RDW Std Deviation RDW Coeff of Colt Plt Count MPV Immature Gran % (Auto) Neut % (Auto) Lymph % (Auto) Stewart % (Auto) Eos % (Auto) Baso % (Auto) Absolute Neuts (auto) Absolute Lymphs (auto) Nucleated RBC % Differential Comment Diff Path Review Platelet Estimate Anisocytosis PT 16.4 H INR 1.4 Specimen Type Sample Site pH Bicarbonate Actual POC Total CO2 Base Excess O2 Saturation O2 % ABG pCO2 ABG pO2 Denny Test O2 Delivery Device Liter Flow EPAP IPAP Blood Gas Notified Whom Blood Gas Notified Time Sodium Potassium Chloride Carbon Dioxide Anion Gap BUN Creatinine Estim Creat Clear Calc Est GFR (MDRD) Af Amer Est GFR (MDRD) Non-Af BUN/Creatinine Ratio Glucose Calcium Phosphorus Magnesium 2.0 Troponin I B-Natriuretic Peptide TSH 4.67 H Free T4 Free T3 pg/dL Urine Color Urine Clarity Urine pH Ur Specific [place] Urine Protein Urine Glucose (UA) Urine Ketones Urine Occult Blood Urine Nitrite Urine Bilirubin Urine Urobilinogen Ur Leukocyte Esterase Urine RBC Urine WBC Ur Squamous Epith Cells Urine Bacteria Urine Mucus POC Glucose 06/30/19 06/30/19 06/30/19 14:15 16:16 23:29 WBC RBC Hgb Hct MCV MCH MCHC RDW Std Deviation RDW Coeff of Colt Plt Count MPV Immature Gran % (Auto) Neut % (Auto) Lymph % (Auto) Stewart % (Auto) Eos % (Auto) Baso % (Auto) Absolute Neuts (auto) Absolute Lymphs (auto) Nucleated RBC % Differential Comment Diff Path Review Platelet Estimate Anisocytosis PT INR Specimen Type Sample Site pH Bicarbonate Actual POC Total CO2 Base Excess O2 Saturation O2 % ABG pCO2 ABG pO2 Denny Test O2 Delivery Device Liter Flow EPAP IPAP Blood Gas Notified Whom Blood Gas Notified Time Sodium Potassium Chloride Carbon Dioxide Anion Gap BUN Creatinine Estim Creat Clear Calc Est GFR (MDRD) Af Amer Est GFR (MDRD) Non-Af BUN/Creatinine Ratio Glucose Calcium Phosphorus 3.0 Magnesium Troponin I B-Natriuretic Peptide TSH Free T4 Free T3 pg/dL Urine Color Yellow Urine Clarity Sl. Cloudy Urine pH 6.0 Ur Specific [place] 1.015 Urine Protein 30 H Urine Glucose (UA) Normal Urine Ketones Negative Urine Occult Blood 10 H Urine Nitrite Negative Urine Bilirubin Negative Urine Urobilinogen Normal Ur Leukocyte Esterase Negative Urine RBC 0-5 SEEN Urine WBC 0 SEEN Ur Squamous Epith Cells 0-5 SEEN Urine Bacteria 0 SEEN Urine Mucus 0 SEEN POC Glucose 129 H 06/30/19 07/01/19 07/01/19 23:41 02:11 05:06 WBC RBC Hgb Hct MCV MCH MCHC RDW Std Deviation RDW Coeff of Colt Plt Count MPV Immature Gran % (Auto) Neut % (Auto) Lymph % (Auto) Stewart % (Auto) Eos % (Auto) Baso % (Auto) Absolute Neuts (auto) Absolute Lymphs (auto) Nucleated RBC % Differential Comment Diff Path Review Platelet Estimate Anisocytosis PT INR Specimen Type ART ART ART Sample Site L RADIAL LR L RADIAL pH 7.20 L 7.22 L 7.32 L Bicarbonate Actual 44.4 H 39.6 H 39.8 H POC Total CO2 48 42 42 Base Excess 16 H 12 H 14 H O2 Saturation 95 93 L 95 O2 % 40 40 ABG pCO2 112.4 H* 96.1 H* 76.5 H* ABG pO2 98 85 85 Denny Test POS POS O2 Delivery Device Nasal Can Bi Pap Bi Pap Liter Flow 7.0 EPAP 10 10 IPAP 20 20 Blood Gas Notified Whom HOSP MD HOSP MD HOSP MD Blood Gas Notified Time 2341 215 520 Sodium Potassium Chloride Carbon Dioxide Anion Gap BUN Creatinine Estim Creat Clear Calc Est GFR (MDRD) Af Amer Est GFR (MDRD) Non-Af BUN/Creatinine Ratio Glucose Calcium Phosphorus Magnesium Troponin I B-Natriuretic Peptide TSH Free T4 Free T3 pg/dL Urine Color Urine Clarity Urine pH Ur Specific [place] Urine Protein Urine Glucose (UA) Urine Ketones Urine Occult Blood Urine Nitrite Urine Bilirubin Urine Urobilinogen Ur Leukocyte Esterase Urine RBC Urine WBC Ur Squamous Epith Cells Urine Bacteria Urine Mucus POC Glucose 07/01/19 07/01/19 07/01/19 06:32 06:32 06:32 WBC 17.9 H RBC 4.28 Hgb 12.7 Hct 42.5 MCV 99.3 H MCH 29.7 MCHC 29.9 L RDW Std Deviation 54.5 H RDW Coeff of Colt 15.3 H Plt Count 353 MPV 9.0 Immature Gran % (Auto) 0.700 Neut % (Auto) 88.0 H Lymph % (Auto) 4.9 L Stewart % (Auto) 6.1 Eos % (Auto) 0.1 Baso % (Auto) 0.2 Absolute Neuts (auto) 15.7 H Absolute Lymphs (auto) 0.87 Nucleated RBC % 0.2 Differential Comment Diff Path Review Platelet Estimate Anisocytosis PT INR Specimen Type Sample Site pH Bicarbonate Actual POC Total CO2 Base Excess O2 Saturation O2 % ABG pCO2 ABG pO2 Denny Test O2 Delivery Device Liter Flow EPAP IPAP Blood Gas Notified Whom Blood Gas Notified Time Sodium 138 Potassium 5.2 H Chloride 99 Carbon Dioxide 37.0 H Anion Gap 2 L BUN 29 H Creatinine 1.20 H Estim Creat Clear Calc 30.14 Est GFR (MDRD) Af Amer 55 L Est GFR (MDRD) Non-Af 45 L BUN/Creatinine Ratio 24.2 H Glucose 94 Calcium 8.5 Phosphorus Magnesium Troponin I B-Natriuretic Peptide TSH Free T4 1.55 H Free T3 pg/dL Urine Color Urine Clarity Urine pH Ur Specific [place] Urine Protein Urine Glucose (UA) Urine Ketones Urine Occult Blood Urine Nitrite Urine Bilirubin Urine Urobilinogen Ur Leukocyte Esterase Urine RBC Urine WBC Ur Squamous Epith Cells Urine Bacteria Urine Mucus POC Glucose 07/01/19 07/01/19 06:32 12:45 WBC RBC Hgb Hct MCV MCH MCHC RDW Std Deviation RDW Coeff of Colt Plt Count MPV Immature Gran % (Auto) Neut % (Auto) Lymph % (Auto) Stewart % (Auto) Eos % (Auto) Baso % (Auto) Absolute Neuts (auto) Absolute Lymphs (auto) Nucleated RBC % Differential Comment Diff Path Review Platelet Estimate Anisocytosis PT INR Specimen Type Sample Site pH Bicarbonate Actual POC Total CO2 Base Excess O2 Saturation O2 % ABG pCO2 ABG pO2 Denny Test O2 Delivery Device Liter Flow EPAP IPAP Blood Gas Notified Whom Blood Gas Notified Time Sodium Potassium Chloride Carbon Dioxide Anion Gap BUN Creatinine Estim Creat Clear Calc Est GFR (MDRD) Af Amer Est GFR (MDRD) Non-Af BUN/Creatinine Ratio Glucose Calcium Phosphorus Magnesium Troponin I B-Natriuretic Peptide TSH Free T4 Free T3 pg/dL 1.7 L Urine Color YELLOW Urine Clarity Clear Urine pH 6.0 Ur Specific [place] 1.010 Urine Protein Negative Urine Glucose (UA) Normal Urine Ketones Negative Urine Occult Blood Negative Urine Nitrite Negative Urine Bilirubin Negative Urine Urobilinogen Normal Ur Leukocyte Esterase Negative Urine RBC 0 SEEN Urine WBC 0 SEEN Ur Squamous Epith Cells 0 SEEN Urine Bacteria 0 SEEN Urine Mucus 0 SEEN POC Glucose Clinical Impression(s) from Imaging Studies Chest X-Ray 06/30/19 14:22 IMPRESSION: Stable chest. Underexpansion of the lungs. Electronically Signed: Suzi Deshpande MD at 15:35 EDT Tel , Service support , Brain CT 06/30/19 23:22 IMPRESSION: Normal CT of the brain for the patient''s age. 1.3 cm soft tissue attenuation mass floor of the right maxillary sinus probably related to chronic inflammation. Recommend nonemergent ENT consult. Electronically Signed: Arthur Hernandez MD at 0:07 EDT , Service support , Current Medications Acetaminophen (Tylenol) 650 mg PO Q6H PRN PRN PRN Reason: Pain Score 1-10/Temp > 100.7 F Last Admin: 06/30/19 19:27 Dose: 650 mg Documented by: Apixaban (Eliquis) 5 mg PO BID [facility] Last Admin: 07/01/19 07:57 Dose: 5 mg Documented by: Donepezil HCl (Aricept) 10 mg PO QHS [facility] Last Admin: 06/30/19 21:02 Dose: 10 mg Documented by: Furosemide (Lasix) 40 mg IV BID@1000,1800 [facility] Last Admin: 07/01/19 08:04 Dose: 40 mg Documented by: Sodium Chloride () 250 mls @ 15 mls/hr IV .[id number] PRN PRN Reason: Saline Flush Last Infusion: 07/01/19 04:27 Dose: 0 mls/hr Documented by: Sodium Chloride () 250 mls @ 15 mls/hr IV .[id number] PRN PRN Reason: Additional IVPB Infusion Latanoprost (Xalatan Opthalmic) 1 drop EACH EYE QHS [facility] Last Admin: 06/30/19 21:01 Dose: 1 drop Documented by: Levothyroxine Sodium (Synthroid) 137 mcg PO DAILY@0600 [facility] Last Admin: 07/01/19 03:32 Dose: Not Given Documented by: Metoprolol Tartrate (Lopressor (Beta Flory)) 50 mg PO BID [facility] Last Admin: 07/01/19 07:58 Dose: 50 mg Documented by: Mirtazapine (Remeron) 15 mg PO DAILY [facility] Last Admin: 07/01/19 07:57 Dose: 15 mg Documented by: Ondansetron HCl (Zofran) 4 mg IV Q8H PRN PRN PRN Reason: NAUSEA/VOMITING Senna/Docusate Sodium (Senokot-S, [place]a-Colace) 2 tablet PO BID PRN PRN PRN Reason: Constipation Sodium Chloride () 10 - 40 ml IV UD PRN PRN Reason: SALINE FLUSH Last Admin: 07/01/19 08:04 Dose: 10 ml Documented by: Timolol Maleate (Timoptic) 1 drop EACH EYE BID [facility] Last Admin: 07/01/19 07:57 Dose: 1 drop Documented by: Zolpidem Tartrate (Ambien (Generic)) 5 mg PO QHS PRN PRN PRN Reason: INSOMNIA Assessment/Plan All Active Problems (Last Updated 06/30/19 @ 16:[address] Dixie Hardy MD) Atrial fibrillation with RVR (Acute) Acute on chronic diastolic CHF (congestive heart failure) (Acute) RECOMMENDATIONS: 1. Wean patient from continuous BiPAP therapy. 2. Wean supplemental oxygen to maintain saturations at or above 90%. 3. Obtain repeat arterial blood gas once the patient has been weaned back to room air. 4. Strongly recommend continuing BiPAP support with naps and nightly. 5. Outpatient pulmonary follow-up and polysomnogram is strongly recommended. IMPRESSIONS: 1. Acute combined respiratory failure The patient was noted to be increasingly lethargic during the product sales engineer hours of June 30. Subsequent ABG revealed evidence of acute combined respiratory failure with a CO2 level of 112. The exact etiology for the patient's acute decompensation last night is unclear. She did not receive any sedating medications. It is certainly plausible that she may have underlying sleep disordered breathing. The patient had a very similar episode during her hospitalization in 2017. It was recommended at that time that the patient follow-up to undergo a diagnostic polysomnogram. However, the patient failed to do so. The patient did have PFTs completed a number of years ago which only revealed evidence of a mild restrictive ventilatory impairment. For now, I would recommend that the patient be continued on nocturnal BiPAP therapy. She can be weaned from continuous BiPAP support this afternoon. Wean supplemental oxygen to maintain saturations at or above 90%. This note was generated with [employer] dictation software. It may contain incorrect words, spelling, and punctuation that were not noted in checking the note before signing. Inpatient E&M: 83844 Init Hosp L3
--- NOTE | 2019-07-01 12:15 | NURSING ---
pt has made many remarks to this RN stating that pt wanted to go home and live out the rest of my life in peace and everything you are doing to keep me alive is annoying and unnecessary. This RN called pt's daughter to update on POC and pt's daughter also made several remarks that mom is ready to . pt's daughter continued to tell this RN that pt fights going to the doctor and that she only wants to sit in front of the fire. This RN brought up hospice/palliative care and asked pt's daughter if this was something pt's daughter would like more information on. pt's daughter agreed to speak with hospice. SW notified at this time
[2019-07-01 12:51] LABS: Bacteria 0 SEEN /hpf (None Seen); Mucous, Urine 0 SEEN /hpf (<or=2+); Red Blood Cells-Urine 0 SEEN /hpf (0-5); Squamous Epithelial Cells - UA 0 SEEN /hpf (5-10); White Blood Cells 0 SEEN /hpf (0-5)
[2019-07-01 12:53] LABS: Glucose, Dipstick Normal (Normal); Ketone-Dipstick Negative (Negative); Leukocyte Esterase-Dipstick Negative /ul (Negative); Nitrite-Dipstick Negative (Negative); Occult Blood-Urine Negative /ul (Negative); Protein-Dipstick Negative (Negative); Urine Bilirubin Dipstick Negative (Negative); Urine Urobilinogen Normal (Normal)
[2019-07-01 12:54] LABS: Color, Urine YELLOW (Yellow); Urine Clarity Clear (Clear)
--- NOTE | 2019-07-01 13:00 | NURSING ---
pt continues to tell this RN everytime this RN is in the room that I just want to go home and . I am ready. made aware. will continue to monitor.
--- NOTE | 2019-07-01 14:26 | CASEMGMT ---
GONZALO spoke narcisa Puente at [facility]ospice around noon and she spoke with patient's daughter. Her daughter would like Hospice, however she wants to wait until patient comes home so she can talk with her and make sure she is in agreement. RN said patient keeps talking about dying and that she wants to go home and . KONG spoke with patient's daughter and she was in agreement with Hospice and patient coming home today. He also explained why patient needs oxygen. GONZALO then called [facility]ospice and let Brittany know this information. She said she would work on setting up the O2 and calling the daughter. GONZALO then received a call from Brittany and she said that patient's daughter seemed surprised that patient was coming home today and that she will need O2. Brittany said she is not sure what to do. GONZALO then spoke with patient's RN and she said she would call patient's daughter to answer her questions. Danielle FRIEND
--- NOTE | 2019-07-01 15:00 | CASEMGMT ---
RN called patient's daughter and answered all of her questions. She is ok with patient coming home with Hospice and she asked if [facility] could call her when they are on their way to drop off the O2. GONZALO called [facility]ospice and spoke with Brittany letting her know above. She thanked GONZALO for the update. Await orders. Once orders are received they will be faxed to Hospice. Plan: d/c home with daughter on [facility]osp[facility] with [facility]. Danielle SUÁREZ RADIOLOGY TEACHER
--- NOTE | 2019-07-01 15:27 | DCINST_ITS ---
- Discharge Diagnoses Current Active Problems: Current Active and Chronic Problems (Last Updated 06/30/19 @ 16:[address] Dixie Hardy MD) Atrial fibrillation with RVR (Acute) Acute on chronic diastolic CHF (congestive heart failure) (Acute) Chronic diastolic CHF (congestive heart failure) (Chronic) You will use the following diet at home:: No restrictions Your food should be the consistency of: Regular Your liquids should be the consistency of: Regular/Thin Discharge Activity: Return to Normal Activity, - - use O2 as directed Allergies/Adverse Reactions: Allergies lisinopril Allergy (Verified 06/30/19 14:22) Unknown losartan [From Cozaar] Allergy (Verified 06/30/19 14:22) Unknown NSAIDS (Non-Steroidal Anti-Inflamma Allergy (Verified 06/30/19 14:) Unknown Medications to take at Discharge Ergocalciferol [Vitamin D] 50,000 unit PO Q30D 01/16/17 Latanoprost 0.005% [Xalatan Opthalmic] 1 drp EACH EYE QHS 01/16/17 Timolol 0.5% [Timoptic] 1 drp EACH EYE BID 01/16/17 Apixaban [Eliquis] 5 mg PO BID 11/12/17 Calcium Carbonate/Vitamin D3 [Calcium 600-Vit D3 400 Caplet] 1 ea PO BID 11/12/17 Donepezil HCl [Aricept] 10 mg PO QHS 11/12/17 Multivitamin [Multiple Vitamins] 1 ea PO DAILY 11/12/17 metoprolol tartrate 50 mg tablet 50 mg PO BID 12/19/17 Levothyroxine [Synthroid] 137 mcg PO DAILY 06/30/19 Mirtazapine [Remeron] 15 mg PO DAILY 06/30/19 Acetaminophen [Tylenol Tablet] 650 mg PO Q6H PRN PRN tablet 07/01/19 Furosemide [Lasix] 40 mg PO DAILY PRN PRN #30 tab 07/01/19 The following prescriptions were given: Furosemide [Lasix] 40 mg PO DAILY PRN PRN #30 tab PRN Reason: Lower extremity edema Transmission Status: Pending to [facility] Primary Care Physician: Will Nagy Chi, MD [Primary Care Provider] - Please follow up with your Primary Care Physician in: 2 weeks Test Results: Test results from this visit will be discussed in further detail at your follow- up appointment, if applicable. Please Follow Up With: Hospice When: As needed Proposed Discharge Date: 07/01/19
--- NOTE | 2019-07-01 15:28 | DS.PCM_ITS ---
<Abdiel Hall - Last Filed: 07/01/19 15:28> Discharge Date and Diagnosis - Problem List Patient Problems: Active and Suspected Problems (Last Updated 06/30/19 @ 16:[address] Dixie Hardy MD) Atrial fibrillation with RVR (Acute) Acute on chronic diastolic CHF (congestive heart failure) (Acute) Date of Admission: 06/30/19 Date of Discharge: 07/01/19 - Primary Discharge Diagnosis Active and Suspected Problems (Last Updated 06/30/19 @ 16:[address] Dixie Hardy MD) Atrial fibrillation with RVR (Acute) Acute on chronic diastolic CHF (congestive heart failure) (Acute) Acute hypoxic and hypercarbic respiratory failure, respiratory acidosis CO2 Narcosis Dementia Hypothyroidism - Secondary Discharge Diagnosis Chronic Problems (Last Updated 06/30/19 @ 16:[address] Dixie Hardy MD) Chronic diastolic CHF (congestive heart failure) (Chronic) Obesity (BMI 30.0-34.9) (Chronic) PAF (paroxysmal atrial fibrillation) (Chronic) ETOH abuse (Chronic) Chronic back pain (Chronic) Dementia without behavioral disturbance (Chronic) Insomnia (Chronic) Hypothyroidism (Chronic) Hypertension (Chronic) Hospital Course and Treatment Imaging Results: RAD/Chest 1 View (Portable) IMPRESSION: Stable chest. Underexpansion of the lungs. CT/Brain/Head without Contrast IMPRESSION: Normal CT of the brain for the patient''s age. 1.3 cm soft tissue attenuation mass floor of the right maxillary sinus probably related to chronic inflammation. Recommend nonemergent ENT consult. Consults: Brown - pulmonology Operations: None Procedures: None Summary of Care Provided: Hospital Course: The patient is a 84 year old F with pmhx as above who presented to the ER with c/o SOB and LE edema. This had been progressively worsening for several days up to presentation. She reported dyspnea with exertion, orthopnea, and PND. She was in Afib with RVR rate 140s. She was felt to have an exacerbation of her underlying diastolic CHF. She was admitted to the hospital and started on IV lasix. Her rate initially improved with cardizem bolus' however RVR returned and she was placed on a cardizem drip. Her metoprolol was continued. Her pressure decreased overnight and the drip was stopped. She developed increased confusion overnight and ABG demonstrated acidosis and elevated CO2. Bipap was started. Her pH and CO2 improved and the following morning she was switched to O2 via nasal cannula and remained without SOB or confusion. I consulted the mud analysis supervisor Dr. Newton who evaluated the patient and recommended holding lasix and continuing bipap qhs. The patient expressed strong wishes for aggressive care to be stopped and stated repeatedly that she wanted to . I discussed this with her daughter whom she lives with and she confirmed that the patient has expressed these wishes for a while as she has been battling dementia for about 5 years. The patient and daughter were in agreement that the best course for her would be to go home and be as comfortable as possible and to pass at home. Hospice was consulted and arrangements were made for the patient to have hospice at home and to go home with home o2. She was discharged home with hospice in stable condition. She should follow up with her PCP and hospice as needed. I gave her an Rx for lasix 40 mg po daily prn for LE edema as she had no lasix at home. This patient was seen by Abdiel Hall PA-C under the supervision of Dr. Winchester. [] Patient Problems: Active and Suspected Problems (Last Updated 06/30/19 @ 16:[address] Dixie Hardy MD) Atrial fibrillation with RVR (Acute) Acute on chronic diastolic CHF (congestive heart failure) (Acute) - Physical Exam Vitals/I&O's: Vital Signs Temp Pulse Resp BP Pulse Ox 98.3 F 104 H 18 104/65 97 07/01/19 14:18 07/01/19 14:18 07/01/19 14:18 07/01/19 14:18 07/01/19 14:18 Oxygen Flow Rate (L/min) [ 2 AMBULATION with Oxygen] Oxygen Flow Rate (L/min) 2 Oxygen Delivery Method Nasal Cannula Weight: 192 lb 3.889 oz Body Mass Index (BMI) 33.0 Intake and Output for Last 24 Hours 06/29/19 06/30/19 07/01/19 23:59 23:59 23:59 Intake Total 187.58 / 292.58 537.47 / 537.47 Output Total 800 / 800 400 / 400 Balance -612.42 / -507.42 137.47 / 137.47 General: Alert, Oriented x3, Cooperative HEENT: Atraumatic, PERRLA, EOMI, Normocephalic Neck: Supple, No JVD, Negative Carotid Bruits Lungs: Clear to auscultation, Diminished Cardiovascular: No murmurs, Irregular Rate Abdomen: Bowel Sounds Present, Soft, Non Tender Extremities: No edema, Capillary Refill Less than 3 Seconds Skin: No rashes, No breakdown Musculoskeletal: No Tenderness to Palpation of Joints or Extremities Neurological: Cranial nerves II-XII grossly intact Psych/Mental Status: Normal Affect, Appropriate, Alert and oriented to time, place, person, mood and affect Laboratory Results 06/30/19 14:15: Differential Comment COMMENT, Diff Path Review Reviewed, Platelet Estimate ADEQUATE, Anisocytosis 1+ 06/30/19 14:15: PT 16.4 H, INR 1.4 06/30/19 14:15: TSH 4.67 H 06/30/19 14:15: Magnesium 2.0 06/30/19 14:15: Phosphorus 3.0 06/30/19 16:16: Urine Color Yellow, Urine Clarity Sl. Cloudy, Urine pH 6.0, Ur Specific [place] 1.015, Urine Protein 30 H, Urine Glucose (UA) Normal, Urine Ketones Negative, Urine Occult Blood 10 H, Urine Nitrite Negative, Urine Bilirubin Negative, Urine Urobilinogen Normal, Ur Leukocyte Esterase Negative, Urine RBC 0-5 SEEN, Urine WBC 0 SEEN, Ur Squamous Epith Cells 0-5 SEEN, Urine Bacteria 0 SEEN, Urine Mucus 0 SEEN 06/30/19 23:29: POC Glucose 129 H 06/30/19 23:41: Specimen Type ART, Sample Site L RADIAL, pH 7.20 L, Bicarbonate Actual 44.4 H, POC Total CO2 48, Base Excess 16 H, O2 Saturation 95, ABG pCO2 112.4 H*, ABG pO2 98, O2 Delivery Device Nasal Can, Liter Flow 7.0, Blood Gas Notified Whom [facility]ITH FOR[facility], Blood Gas Notified Time 2151 07/01/19 02:11: Specimen Type ART, Sample Site LR, pH 7.22 L, Bicarbonate Actual 39.6 H, POC Total CO2 42, Base Excess 12 H, O2 Saturation 93 L, O2 % 40, ABG pCO2 96.1 H*, ABG pO2 85, Denny Test POS, O2 Delivery Device Bi Pap, EPAP 10, IPAP 20, Blood Gas Notified Whom LAITH FORD, Blood Gas Notified Time 215 07/01/19 05:06: Specimen Type ART, Sample Site L RADIAL, pH 7.32 L, Bicarbonate Actual 39.8 H, POC Total CO2 42, Base Excess 14 H, O2 Saturation 95, O2 % 40, ABG pCO2 76.5 H*, ABG pO2 85, Denny Test POS, O2 Delivery Device Bi Pap, EPAP 10, IPAP 20, Blood Gas Notified Whom LA[facility] FORD, Blood Gas Notified Time 520 07/01/19 06:32: WBC 17.9 H, RBC 4.28, Hgb 12.7, Hct 42.5, MCV 99.3 H, MCH 29.7, MCHC 29.9 L, RDW Std Deviation 54.5 H, RDW Coeff of Colt 15.3 H, Plt Count 353, MPV 9.0, Immature Gran % (Auto) 0.700, Neut % (Auto) 88.0 H, Lymph % (Auto) 4.9 L, [place] % (Auto) 6.1, Eos % (Auto) 0.1, Baso % (Auto) 0.2, Absolute Neuts (auto) 15.7 H, Absolute Lymphs (auto) 0.87, Nucleated RBC % 0.2 07/01/19 06:32: Sodium 138, Potassium 5.2 H, Chloride 99, Carbon Dioxide 37.0 H, Anion Gap 2 L, BUN 29 H, Creatinine 1.20 H, Estim Creat Clear Calc 30.14, Est GFR (MDRD) Af Amer 55 L, Est GFR (MDRD) Non-Af 45 L, BUN/Creatinine Ratio 24.2 H , Glucose 94, Calcium 8.5 07/01/19 06:32: Free T4 1.55 H 07/01/19 06:32: Free T3 pg/dL 1.7 L 07/01/19 12:45: Urine Color YELLOW, Urine Clarity Clear, Urine pH 6.0, Ur Specific [place] 1.010, Urine Protein Negative, Urine Glucose (UA) Normal, Urine Ketones Negative, Urine Occult Blood Negative, Urine Nitrite Negative, Urine Bilirubin Negative, Urine Urobilinogen Normal, Ur Leukocyte Esterase Negative, Urine RBC 0 SEEN, Urine WBC 0 SEEN, Ur Squamous Epith Cells 0 SEEN, Urine Bacteria 0 SEEN, Urine Mucus 0 SEEN Current Medications Acetaminophen (Tylenol) 650 mg PO Q6H PRN PRN PRN Reason: Pain Score 1-10/Temp > 100.7 F Last Admin: 06/30/19 19:27 Dose: 650 mg Documented by: Apixaban (Eliquis) 5 mg PO BID [facility] Last Admin: 07/01/19 07:57 Dose: 5 mg Documented by: Donepezil HCl (Aricept) 10 mg PO QHS [facility] Last Admin: 06/30/19 21:02 Dose: 10 mg Documented by: Sodium Chloride () 250 mls @ 15 mls/hr IV .[id number] PRN PRN Reason: Saline Flush Last Infusion: 07/01/19 04:27 Dose: 0 mls/hr Documented by: Sodium Chloride () 250 mls @ 15 mls/hr IV .[id number] PRN PRN Reason: Additional IVPB Infusion Latanoprost (Xalatan Opthalmic) 1 drop EACH EYE QHS [facility] Last Admin: 06/30/19 21:01 Dose: 1 drop Documented by: Levothyroxine Sodium (Synthroid) 137 mcg PO DAILY@0600 [facility] Last Admin: 07/01/19 03:32 Dose: Not Given Documented by: Metoprolol Tartrate (Lopressor (Beta Flory)) 50 mg PO BID [facility] Last Admin: 07/01/19 07:58 Dose: 50 mg Documented by: Mirtazapine (Remeron) 15 mg PO DAILY [facility] Last Admin: 07/01/19 07:57 Dose: 15 mg Documented by: Ondansetron HCl (Zofran) 4 mg IV Q8H PRN PRN PRN Reason: NAUSEA/VOMITING Senna/Docusate Sodium (Senokot-S, [place]-Colace) 2 tablet PO BID PRN PRN PRN Reason: Constipation Sodium Chloride () 10 - 40 ml IV UD PRN PRN Reason: SALINE FLUSH Last Admin: 07/01/19 08:04 Dose: 10 ml Documented by: Timolol Maleate (Timoptic) 1 drop EACH EYE BID [facility] Last Admin: 07/01/19 07:57 Dose: 1 drop Documented by: Zolpidem Tartrate (Ambien (Generic)) 5 mg PO QHS PRN PRN PRN Reason: INSOMNIA Discharge Diet: No Restrictions Discharge Activity: Return to Normal Activity, - - use O2 as directed Home Medications: Medications to take at Discharge Ergocalciferol [Vitamin D] 50,000 unit PO Q30D 01/16/17 Latanoprost 0.005% [Xalatan Opthalmic] 1 drp EACH EYE QHS 01/16/17 Timolol 0.5% [Timoptic] 1 drp EACH EYE BID 01/16/17 Apixaban [Eliquis] 5 mg PO BID 11/12/17 Calcium Carbonate/Vitamin D3 [Calcium 600-Vit D3 400 Caplet] 1 ea PO BID 11/12/17 Donepezil HCl [Aricept] 10 mg PO QHS 11/12/17 Multivitamin [Multiple Vitamins] 1 ea PO DAILY 11/12/17 metoprolol tartrate 50 mg tablet 50 mg PO BID 12/19/17 Levothyroxine [Synthroid] 137 mcg PO DAILY 06/30/19 Mirtazapine [Remeron] 15 mg PO DAILY 06/30/19 Acetaminophen [Tylenol Tablet] 650 mg PO Q6H PRN PRN tab 07/01/19 Furosemide [Lasix] 40 mg PO DAILY PRN PRN #30 tab 07/01/19 Following Prescrptions Were Given to Patient: Furosemide [Lasix] 40 mg PO DAILY PRN PRN #30 tab PRN Reason: Lower extremity edema Transmission Status: Received by [facility] Primary Care Physician: Will Nagy Chi, MD [Primary Care Provider] - Please follow up with your Primary Care Physician in: as needed Please Follow Up With: Hospice When: As needed Disposition: Home with Hospice Minutes spent on discharge:: 40 Patient Condition:: Stable Medical Necessity - Tobacco Use Smoking Status: Never smoker Tobacco Use: Non-smoker Meaningful Use Info Meaningful Use Diagnoses (Choose all that apply): CHF - CHF GARY/ARB ordered at discharge?: No Reason GARY/ARB not ordered?: Drug Interaction - hyperkalemia, pt going on hospice. Documented LVEF (%): 65 <Caleb Winchester - Last Filed: 07/01/19 16:38> Discharge Date and Diagnosis - Primary Discharge Diagnosis Active and Suspected Problems (Last Updated 06/30/19 @ 16:[address] Dixie Hardy MD) Atrial fibrillation with RVR (Acute) Acute on chronic diastolic CHF (congestive heart failure) (Acute) - Secondary Discharge Diagnosis Chronic Problems (Last Updated 06/30/19 @ 16:[address] Dixie Hardy MD) Chronic diastolic CHF (congestive heart failure) (Chronic) Obesity (BMI 30.0-34.9) (Chronic) PAF (paroxysmal atrial fibrillation) (Chronic) ETOH abuse (Chronic) Chronic back pain (Chronic) Dementia without behavioral disturbance (Chronic) Insomnia (Chronic) Hypothyroidism (Chronic) Hypertension (Chronic) Hospital Course and Treatment Summary of Care Provided: This patient was seen in conjunction with Abdiel Hall PA-C . I have independently interviewed and examined the patient and reviewed pertinent historical, laboratory, and other data. Please refer to Abdiel Hall PA-C note for details of this patient's presentation, findings, and recommendations. I have reviewed Abdiel Hall PA-C note and concur with documented findings. In brief, patient is an 84-year-old lady admitted with progressive shortness of breath and assessment of acute on chronic congestive heart failure made admitted to a monitored bed for further management Assessment: 1. Acute on chronic diastolic congestive heart failure 2. Acute hypercapnic respiratory failure 3. Respiratory acidosis 4. A. fib with RVR 5. Hypothyroidism 6. Dementia 7. DVT prophylaxis?[facility] Hospital course as documented above - Physical Exam Vitals/I&O's: Vital Signs Temp Pulse Resp BP Pulse Ox 98.3 F 104 H 18 104/65 97 07/01/19 14:18 07/01/19 14:18 07/01/19 14:18 07/01/19 14:18 07/01/19 14:18 Oxygen Flow Rate (L/min) [ 2 AMBULATION with Oxygen] Oxygen Flow Rate (L/min) 2 Oxygen Delivery Method Nasal Cannula Weight: 87.2 kg Body Mass Index (BMI) 33.0 Intake and Output for Last 24 Hours 06/29/19 06/30/19 07/01/19 23:59 23:59 23:59 Intake Total 187.58 / 292.58 537.47 / 537.47 Output Total 800 / 800 400 / 400 Balance -612.42 / -507.42 137.47 / 137.47 Laboratory Results 06/30/19 14:15: Diff Path Review Reviewed 06/30/19 14:15: PT 16.4 H, INR 1.4 06/30/19 14:15: TSH 4.67 H 06/30/19 14:15: Magnesium 2.0 06/30/19 14:15: Phosphorus 3.0 06/30/19 23:29: POC Glucose 129 H 06/30/19 23:41: Specimen Type ART, Sample Site L RADIAL, pH 7.20 L, Bicarbonate Actual 44.4 H, POC Total CO2 48, Base Excess 16 H, O2 Saturation 95, ABG pCO2 112.4 H*, ABG pO2 98, O2 Delivery Device Nasal Can, Liter Flow 7.0, Blood Gas Notified Whom [facility] , Blood Gas Notified Time 2341 07/01/19 02:11: Specimen Type ART, Sample Site LR, pH 7.22 L, Bicarbonate Actual 39.6 H, POC Total CO2 42, Base Excess 12 H, O2 Saturation 93 L, O2 % 40, ABG pCO 2 96.1 H*, ABG pO2 85, Denny Test POS, O2 Delivery Device Bi Pap, EPAP 10, IPAP 20, Blood Gas Notified Whom [facility] , Blood Gas Notified Time 215 07/01/19 05:06: Specimen Type ART, Sample Site L RADIAL, pH 7.32 L, Bicarbonate Actual 39.8 H, POC Total CO2 42, Base Excess 14 H, O2 Saturation 95, O2 % 40, ABG pCO2 76.5 H*, ABG pO2 85, Denny Test POS, O2 Delivery Device Bi Pap, EPAP 10, IPAP 20, Blood Gas Notified Whom [facility] , Blood Gas Notified Time 520 07/01/19 06:32: WBC 17.9 H, RBC 4.28, Hgb 12.7, Hct 42.5, MCV 99.3 H, MCH 29.7, MCHC 29.9 L, RDW Std Deviation 54.5 H, RDW Coeff of Colt 15.3 H, Plt Count 353, MPV 9.0, Immature Gran % (Auto) 0.700, Neut % (Auto) 88.0 H, Lymph % (Auto) 4.9 L, [place] % (Auto) 6.1, Eos % (Auto) 0.1, Baso % (Auto) 0.2, Absolute Neuts (auto) 15.7 H, Absolute Lymphs (auto) 0.87, Nucleated RBC % 0.2 07/01/19 06:32: Sodium 138, Potassium 5.2 H, Chloride 99, Carbon Dioxide 37.0 H, Anion Gap 2 L, BUN 29 H, Creatinine 1.20 H, Estim Creat Clear Calc 30.14, Est GFR (MDRD) Af Amer 55 L, Est GFR (MDRD) Non-Af 45 L, BUN/Creatinine Ratio 24.2 H , Glucose 94, Calcium 8.5 07/01/19 06:32: Free T4 1.55 H 07/01/19 06:32: Free T3 pg/dL 1.7 L 07/01/19 12:45: Urine Color YELLOW, Urine Clarity Clear, Urine pH 6.0, Ur Specific [place] 1.010, Urine Protein Negative, Urine Glucose (UA) Normal, Urine Ketones Negative, Urine Occult Blood Negative, Urine Nitrite Negative, Urine Bilirubin Negative, Urine Urobilinogen Normal, Ur Leukocyte Esterase Negative, Urine RBC 0 SEEN, Urine WBC 0 SEEN, Ur Squamous Epith Cells 0 SEEN, Urine Bacteria 0 SEEN, Urine Mucus 0 SEEN Current Medications Acetaminophen (Tylenol) 650 mg PO Q6H PRN PRN PRN Reason: Pain Score 1-10/Temp > 100.7 F Last Admin: 06/30/19 19:27 Dose: 650 mg Documented by: Apixaban (Eliquis) 5 mg PO BID [facility] Last Admin: 07/01/19 07:57 Dose: 5 mg Documented by: Donepezil HCl (Aricept) 10 mg PO QHS [facility] Last Admin: 06/30/19 21:02 Dose: 10 mg Documented by: Sodium Chloride () 250 mls @ 15 mls/hr IV .[id number] PRN PRN Reason: Saline Flush Last Infusion: 07/01/19 04:27 Dose: 0 mls/hr Documented by: Sodium Chloride () 250 mls @ 15 mls/hr IV .[id number] PRN PRN Reason: Additional IVPB Infusion Latanoprost (Xalatan Opthalmic) 1 drop EACH EYE QHS [facility] Last Admin: 06/30/19 21:01 Dose: 1 drop Documented by: Levothyroxine Sodium (Synthroid) 137 mcg PO DAILY@0600 [facility] Last Admin: 07/01/19 03:32 Dose: Not Given Documented by: Metoprolol Tartrate (Lopressor (Beta Flory)) 50 mg PO BID [facility] Last Admin: 07/01/19 07:58 Dose: 50 mg Documented by: Mirtazapine (Remeron) 15 mg PO DAILY [facility] Last Admin: 07/01/19 07:57 Dose: 15 mg Documented by: Ondansetron HCl (Zofran) 4 mg IV Q8H PRN PRN PRN Reason: NAUSEA/VOMITING Senna/Docusate Sodium (Senokot-S, [place]-Colace) 2 tablet PO BID PRN PRN PRN Reason: Constipation Sodium Chloride () 10 - 40 ml IV UD PRN PRN Reason: SALINE FLUSH Last Admin: 07/01/19 08:04 Dose: 10 ml Documented by: Timolol Maleate (Timoptic) 1 drop EACH EYE BID [facility] Last Admin: 07/01/19 07:57 Dose: 1 drop Documented by: Zolpidem Tartrate (Ambien (Generic)) 5 mg PO QHS PRN PRN PRN Reason: INSOMNIA Inpatient E&M: 75862 Disch Hosp
== END 2019-07-01 16:47 | disposition hospice, home (50) | DRG 291 ==
LOC: ED 14:22 → PCU 15:59
PROVIDERS: Family Medicine; Internal Medicine Critical Care Medicine; Physician Assistant; Admitting Provider Hospitalist; Emergency Provider Emergency Medicine; PCP Family Medicine Geriatric Medicine; Visit Provider Internal Medicine
DX: I11.0 Hypertensive heart disease with heart failure (principal); J96.02 Acute respiratory failure with hypercapnia; J96.01 Acute respiratory failure with hypoxia; E87.2 Acidosis; I50.33 Acute on chronic diastolic (congestive) heart failure; I48.0 Paroxysmal atrial fibrillation; I27.20 Pulmonary hypertension, unspecified; F03.90 Unspecified dementia, unspecified severity, without behavioral disturbance, psychotic disturbance, mood disturbance, and anxiety; E03.9 Hypothyroidism, unspecified; E66.9 Obesity, unspecified; F10.10 Alcohol abuse, uncomplicated; Y90.9 Presence of alcohol in blood, level not specified; G89.29 Other chronic pain; M54.9 Dorsalgia, unspecified; G47.00 Insomnia, unspecified; Z68.34 Body mass index [BMI] 34.0-34.9, adult; Z79.01 Long term (current) use of anticoagulants; Z79.890 Hormone replacement therapy; Z79.899 Other long term (current) drug therapy
CPT/HCPCS: 36415; 36600; 70450; 71045; 80048; 81001; 82803; 82962; 83735; 83880; 84100; 84439; 84443; 84481; 84484; 85025; 85610; 87040; 87086; 87088; 87186; 93005; 94002; 96374; 96375; 96376; 97162; 97166; 97802; 99285; J7050; A4216; J1940